=== PATIENT | female | born 1950 | race Caucasian/White ===

== ENCOUNTER 2016-11-21 03:04 | Inpatient (IN) | payer MEDICARE, OTHER ==
[~2016-11-21] VITALS: Ht 154.9 cm; Wt 81.2 kg
[~2016-11-21 03:04] MED LIST: AMLO5TAB2 PO; ASPI-991 PO; DOCU-270 PO; DRON400T2 PO; FAMO20TA8 PO; FOLI1TAB16 PO; GABA-532 PO; HYDR12.55 PO; ISOS30TA47 PO; LEVO500T15 PO; LOSA50TA21 PO; OMEP20CA10 PO; PYRI50TA74 PO; SIMV20TA6 PO; SULI150T PO
--- NOTE | 2016-11-21 03:19 | NUR ---
66 YO FEMALE BB FAMILY; LEFT CHEST PAIN "TIGHTNESS" LIKE, 5/10, STARTING AT 0100 TOOK SL NITRO X 2 AT 0100 WEB APPLICATIONS ADMINISTRATOR WITH LITTLE RELIEF. PT AMBULATED TO ER BED, SKIN WARM AND DRY, RR EVEN AND UNLABORED. PT GOWNED,PLACED ON WAREHOUSE SHIPPING ASSOCIATE. AWAITING ORDERS FROM PROVIDER
[2016-11-21] MEDS ORDERED: NITROGLYCERIN 0.4 MG/TAB BOTTLE SL ONE (03:30)
[2016-11-21] MEDS ORDERED: HYDROMORPHONE INJ 2 MG/ML DISP.SYRIN IV ONE (03:30)
[2016-11-21] MEDS ORDERED: ONDANSETRON HCL/PF 4 MG/2 ML VIAL IVP ONE (03:30)
[2016-11-21] MEDS ORDERED: NITROGLYCERIN PACKET 1 GM PACKET TD ONE (03:30)
[2016-11-21] MEDS ORDERED: ASPIRIN 81 MG TAB.CHEW PO ONE (03:30)
[2016-11-21] MEDS ORDERED: HYDROMORPHONE INJ 2 MG/ML DISP.SYRIN ONE (03:35)
--- NOTE | 2016-11-21 03:35 | NUR ---
18G RIGHT AC IV STARTED, BLOOD SAMPLE OBTAINED AND SENT TO LAB.
[2016-11-21 03:36] LABS: BASOPHILS % (AUTO) 0.3 % (0.0-2.0); EOSINOPHILS # (AUTO) 0.1 /CMM (0.0-0.7); EOSINOPHILS % (AUTO) 2.5 % (0.0-6.0); HEMATOCRIT 41 % (33-45); HEMOGLOBIN 13.4 g/dL (11.5-14.8); LYMPHOCYTES # (AUTO) 2.6 /CMM (0.8-4.8); LYMPHOCYTES % (AUTO) 45.3 % (20.0-44.0); MEAN CORPUSCULAR HEMOGLOBIN 31 PG (26.0-33.0); MEAN CORPUSCULAR HGB CONC 33 g/dl (31.0-36.0); MEAN CORPUSCULAR VOLUME 94 fL (82-100); MONOCYTES # (AUTO) 0.4 /CMM (0.1-1.30); NEUTROPHILS # (AUTO) 2.6 /CMM (1.8-8.9); NEUTROPHILS % (AUTO) 44.9 % (43.0-81.0); PLATELET COUNT (AUTO) 203 /CMM (150-450); RDW COEFFICIENT OF VARIATION 13.1 (11.5-15.0); RED BLOOD CELL COUNT(AUTO) 4.37 MIL/uL (4.0-5.2); WHITE BLOOD COUNT (AUTO) 5.7 K/uL (4.3-11.0)
[2016-11-21] MEDS ORDERED: NITROGLYCERIN PACKET 1 GM PACKET ONE (03:36)
[2016-11-21] MEDS ORDERED: NITROGLYCERIN 0.4 MG/TAB BOTTLE ONE (03:36)
[2016-11-21] MEDS ORDERED: ASPIRIN 81 MG TAB.CHEW ONE (03:36)
[2016-11-21] MEDS ORDERED: ONDANSETRON HCL/PF 4 MG/2 ML VIAL ONE (03:36)
[2016-11-21] MEDS ORDERED: FURO40TA5 PO (03:41)
[2016-11-21] MEDS ORDERED: CLOP75TA2 PO (03:41)
[2016-11-21] MEDS ORDERED: RIVA10TA PO (03:41)
[2016-11-21] MEDS ORDERED: PANT40TA4 PO (03:41)
[2016-11-21] MEDS ORDERED: ATOR20TA PO (03:41)
[2016-11-21] MEDS ORDERED: METO25TA6 PO (03:41)
[2016-11-21] MEDS ORDERED: ERGO400T7 PO (03:41)
[2016-11-21 03:53] LABS: D-DIMER 0.27 mg/L(FEU (0.17-0.50); INR 0.99 (0.87-1.13); PROTHROMBIN TIME 10.6 SECS (9.5-12.7)
[2016-11-21 04:15] LABS: CARBON DIOXIDE 29 mmol/L (21-32); CHLORIDE 106 mmol/L (98-107); CREATININE 0.9 mg/dL (0.6-1.3); GFR 62 mL/min (>60); GLUCOSE 95 mg/dL (74-106); POTASSIUM 3.8 mmol/L (3.5-5.1); SODIUM SERUM 142 mmol/L (136-145); UREA NITROGEN, BLOOD 17 mg/dL (7-18)
[2016-11-21 04:22] LABS: TROPONIN I < 0.017 ng/mL (0.00-0.056)
[2016-11-21 04:27] LABS: ALANINE AMINOTRANSFERASE 18 U/L (12-78); ALBUMIN 3.9 g/dL (3.4-5.0); ALKALINE PHOSPHATASE 120 U/L (46-116); ASPARTATE AMINOTRANSFERASE 16 U/L (15-37); B-TYPE NATRIURETIC PEPTIDE 441 PG/ML (0-125); BILIRUBIN,DIRECT 0.1 mg/dL (0.0-0.2); BILIRUBIN,TOTAL 0.5 mg/dL (0.2-1.0); TOTAL PROTEIN, SERUM 7.3 g/dL (6.4-8.2)
[2016-11-21] MEDS ORDERED: HYDROCODONE/APAP 5/325MG 1 EACH TABLET PO PRN (05:00)
[2016-11-21] MEDS ORDERED: ERGOCALCIFEROL (VITAMIN D 2) 50,000 UNIT CAPSULE PO SCH ×2 (05:00→07:35)
[2016-11-21] MEDS ORDERED: ACETAMINOPHEN 325 MG TABLET PO PRN (05:00)
[2016-11-21] MEDS ORDERED: ENOXAPARIN SODIUM 40 MG/0.4 ML DISP.SYRIN SQ SCH (05:00)
[2016-11-21] MEDS ORDERED: ZOLPIDEM TARTRATE 5 MG TABLET PO PRN (05:00)
[2016-11-21] MEDS ORDERED: MORPHINE SULFATE INJ 2 MG/ML DISP.SYRIN IV PRN (05:00)
[2016-11-21] MEDS ORDERED: MAGNESIUM HYDROXIDE 30 ML UDC PO PRN (05:00)
[2016-11-21] MEDS ORDERED: Z GUARD REMEDY 2 OZ OINT TP PRN (05:00)
[2016-11-21] MEDS ORDERED: ONDANSETRON HCL/PF 4 MG/2 ML VIAL IVP PRN (05:00)
[2016-11-21] MEDS ORDERED: ENOXAPARIN SODIUM 40 MG/0.4 ML DISP.SYRIN SQ ONE ×2 (05:00→05:43)
[2016-11-21] MEDS ORDERED: MAG HYDROX/AL HYDROX/SIMETH 30 ML UDC PO PRN (05:00)
--- NOTE | 2016-11-21 05:04 | NUR ---
TRANSPOTED PT TO TELE BED WITHOUT INCIDENT
--- NOTE | 2016-11-21 05:04 | NUR ---
REPORT GIVEN TO STOCKROOM INVENTORY CLERK FOR GALO
--- NOTE | 2016-11-21 05:20 | NUR ---
RN NOTES: ADMITTED FROM ER, ACCOMPANIED BY 1 RN, ON PRESSURE DISPATCHER, CAME IN WITH C/O CHEST PAIN SINCE 1AM, SHE RECEIVED 2 DOSE OF NITROGLYCERINE FROM HOME, NOT RELIEVED, FROM ER SHE RECEIVED DILAUDID,NITRO TAB, NITRO PATCH AND ZOFRAN, CANNULA ON RAC G#18,ALERT AND ORRIENTED X4,FARSI SPEAKING ONLY,ON O2 AT 2L/MIN VIA NC [id number]%,STIL WITH MILD CHEST PAIN PER PATIENT DAUGHTER SHE VERBALISED SHE FELT BETTER NOW AND RELIEVED, BODY ASSESSMENT DONE, NOTED MULTIPLE SKIN DISCOLORATION ON THE LLE,SHIRLEY,LEFT HIP AND REDNESS ON THE SACROCOCCYX AREA,INITIAL SKIN TREATMENT INITIATED;ORIENTED TO UNIT AND STAFF, FALL, SAFETY AND ASPIRATION PRECAUTION OBSERVE, ALARM ON AT ALL TIME, CALL LIGHT WITHIN REACH.
[2016-11-21 05:30] VITALS: BP 126/76
[2016-11-21] MEDS ORDERED: NITROGLYCERIN 0.4 MG/TAB BOTTLE SL PRN (05:30)
--- NOTE | 2016-11-21 05:59 | NUR ---
RN NOTES: DRISDOL NOT GIVEN, PER SCREENER OPERATOR GIVE AT 9AM.
--- NOTE | 2016-11-21 06:45 | NUR ---
RN NOTES: LOVENOX FIRST DOSE GIVEN, PATIENT ASSISTED TO BATHROOM,VERBALIZE SHE IS OK, LESS PAIN,KEPT ON CLOSE WATCH, ENDORSE TO MORNING SHIFT FOR CONTINUITY OF CARE.
--- NOTE | 2016-11-21 07:00 | NUR ---
TELE/RN AM NOTES RECEIVED PATIENT IN BED, AWAKE, ALERT, WITHOUT SOB, NO DISTRESS C/O MILD CHEST TIGHTNESS, 2/10, BREATHING EVEN UNLABORED, ASSISTED TO THE BATHROOM. REMAINS CONNECTED TO THE TELE MONITOR, HR-86 AFIB. NO DISTRESS NOTED, ON RA TOLERATING WELL. IV LINE RAC INTACT, PATENT. NEEDS MET, BED IN LOW POSITION, 2SR UP FOR SAFETY. WITH CALL LIGHT WITHIN EASY REACH. WILL CONTINUE TO MONITOR ACCORDINGLY.
[2016-11-21 08:00] VITALS: BP 125/83
[2016-11-21] MEDS: PANTOPRAZOLE 40 MG TABLET.DR PO SCH ×2 (08:30→09:07)
[2016-11-21 08:40] LABS: PHOSPHORUS 3.9 mg/dL (2.5-4.9)
[2016-11-21] MEDS ORDERED: METOPROLOL TARTRATE 25 MG TABLET PO SCH (09:00)
[2016-11-21] MEDS ORDERED: PANTOPRAZOLE 40 MG TABLET.DR PO SCH (09:00)
[2016-11-21] MEDS: METOPROLOL TARTRATE 25 MG TABLET PO SCH ×2 (09:08→16:52)
[2016-11-21] MEDS: FUROSEMIDE 40 MG TABLET PO SCH (09:08)
[2016-11-21] MEDS: ISOSORBIDE DINITRATE (20MG) 20 MG TABLET PO SCH ×2 (09:09→16:52)
[2016-11-21] MEDS: CLOPIDOGREL BISULFATE 75 MG TABLET PO SCH (09:09)
[2016-11-21] MEDS: FOLIC ACID 1 MG TABLET PO SCH (09:09)
--- NOTE | 2016-11-21 09:10 | NUR ---
TELE/RN NOTES DR. MASTERSON VISITED/EXAMINED PATIENT, CONTINUE HOSPITALIZATION, ORDERED D/C LOVENOX. NOTED CARRIED OUT Addendum: 11/21/16 at 0918 by DOUG FONSECA RN VITAMIN D2 50,000 NOT ADMINISTERED, WASTED, D/T PATIENT RECEIVED LAST TUESDAY, NOT DUE AT THIS TIME. NEXT SCHEDULED DOSE IS 11/24/16
[2016-11-21 12:00] VITALS: BP 114/82
[2016-11-21 16:00] VITALS: BP_SYST 112; BP_DIAS 64; BP_DIAS 74
--- NOTE | 2016-11-21 19:45 | NUR ---
TELE/RN CLOSING NOTES PATIENT IS IN THE BED, HOB ELEVATED HIGH FOWLERS, NO CHEST PAIN, C/O MILD CHEST TIGHTNESS, DAUGHTER AT THE BEDSIDE, NO DISCOMFORT, NO DISTRESS. OXYGEN IN PLACE VIA N/C 2L/M, TOLERATING WELL. IV LINE INTACT RENETTA. TELE MONITOR ATTACHED HR 90, SINUS RHYTHM. KEPT CLEAN DRY NEEDS ANTICIPATED IN TIMELY MANNER, BED IN LOW POSITION, WITH CALL LIGHT WITHIN EASY REACH.
[2016-11-21 20:00] VITALS: BP 97/67
--- NOTE | 2016-11-21 20:15 | NUR ---
RN OPEN NOTES RECEIVED PATIENT AWAKE IN BED WITH DAUGHTER AT BEDSIDE. A/O X4. NO SIGNS OF DISTRESS OR DISCOMFORT. BREATHING EVEN AND UNLABORED. ON 2LPM O2 VIA NC. DENIES ANY CHEST PAIN AT THIS TIME. STATES LEFT SHOULDER AND LEFT CHEST AREA FEELS TIGHT OR SORE. ON TELE MONITORING WITH AFIB HR 83 NOTED. IV ACCESS IN RAC PATENT AND INTACT, NO SIGNS OF REDNESS OR INFILTRATION. BED IN LOW LOCKED POSITION WITH SIDE RAILS X2. CALL LIGHT WITHIN REACH. WILL CONTINUE TO MONITOR.
[2016-11-21] MEDS ORDERED: ATORVASTATIN 10 MG TABLET PO SCH (22:00)
[2016-11-22] VITALS: BP 120/76
[2016-11-22 04:00] VITALS: BP 154/98
[2016-11-22 06:01] LABS: BASOPHILS % (AUTO) 0.5 % (0.0-2.0); EOSINOPHILS # (AUTO) 0.1 /CMM (0.0-0.7); EOSINOPHILS % (AUTO) 2.4 % (0.0-6.0); HEMATOCRIT 41 % (33-45); HEMOGLOBIN 13.6 g/dL (11.5-14.8); LYMPHOCYTES # (AUTO) 2.4 /CMM (0.8-4.8); LYMPHOCYTES % (AUTO) 49.1 % (20.0-44.0); MEAN CORPUSCULAR HEMOGLOBIN 31 PG (26.0-33.0); MEAN CORPUSCULAR HGB CONC 33 g/dl (31.0-36.0); MEAN CORPUSCULAR VOLUME 94 fL (82-100); MONOCYTES # (AUTO) 0.3 /CMM (0.1-1.30); MONOCYTES % (AUTO) 6.7 % (2.0-12.0); NEUTROPHILS % (AUTO) 41.3 % (43.0-81.0); PLATELET COUNT (AUTO) 200 /CMM (150-450); RDW COEFFICIENT OF VARIATION 13.3 (11.5-15.0); WHITE BLOOD COUNT (AUTO) 4.9 K/uL (4.3-11.0)
[2016-11-22 06:19] LABS: CALCIUM, SERUM 9.1 mg/dL (8.5-10.1); CREATININE 0.9 mg/dL (0.6-1.3); MAGNESIUM 1.9 mg/dL (1.8-2.4); PHOSPHORUS 3.7 mg/dL (2.5-4.9); POTASSIUM 4.8 mmol/L (3.5-5.1)
--- NOTE | 2016-11-22 06:48 | NUR ---
RN CLOSING NOTES PATIENT AWAKE IN BED. A/O X4. NO SIGNS OF DISTRESS OR DISCOMFORT. BREATHING EVEN AND UNLABORED. ON 2LPM O2 VIA NC. DENIES ANY CHEST PAIN AT THIS TIME. ON TELE MONITORING WITH AFIB HR 72 NOTED. IV ACCESS IN RAC PATENT AND INTACT, NO SIGNS OF REDNESS OR INFILTRATION. BED IN LOW LOCKED POSITION WITH SIDE RAILS X2. CALL LIGHT WITHIN REACH. WILL ENDORSE TO AM SHIFT FOR GALO.
--- NOTE | 2016-11-22 07:30 | NUR ---
CAPACITY PLANNER OPENING NOTES RECEIVED PATIENT IN BED, AWAKE, HEAD OF BED ELEVATED, NO SOB, OR DISTRESS NOTED. PATIENT DENIES CHEST PAIN. PATIENT ON O2 AT 2LPM VIA NC AND TOLERATED WELL. ON TELE MONITOR A-FIB PVC HEART RATE OF 73. NO JVD, PATIENT ALERTED AND ORIENTED TIMES 3. VERBALLY RESPONSIVE IN FARSI. IV INTACT AND PATENT. BED IS LOCKED ON THE LOWEST POSITION, CALL LIGHT WITHIN PATIENT REACH. KEPT PATIENT CLEAN AND COMFORTABLE. WILL CONTINUE TO MONITOR ACCORDINGLY.
[2016-11-22 08:00] VITALS: BP 127/90
[2016-11-22] MEDS: FOLIC ACID 1 MG TABLET PO SCH (08:25)
[2016-11-22] MEDS: CLOPIDOGREL BISULFATE 75 MG TABLET PO SCH (08:26)
[2016-11-22] MEDS: METOPROLOL TARTRATE 25 MG TABLET PO SCH (08:26)
[2016-11-22] MEDS: ISOSORBIDE DINITRATE (20MG) 20 MG TABLET PO SCH (08:29)
[2016-11-22] MEDS: FUROSEMIDE 40 MG TABLET PO SCH (08:29)
[2016-11-22] MEDS: PANTOPRAZOLE 40 MG TABLET.DR PO SCH (08:29)
[2016-11-22] MEDS ORDERED: RIVAROXABAN 10 MG TABLET PO SCH (09:00)
[2016-11-22] MEDS ORDERED: LOSARTAN POTASSIUM 50 MG TABLET PO SCH (09:00)
[2016-11-22] MEDS ORDERED: ASPIRIN EC 81 MG TABLET.DR PO SCH (09:00)
[2016-11-22] MEDS ORDERED: ASPI81TA2 PO (11:34)
[2016-11-22 12:25] VITALS: BP 116/73
--- NOTE | 2016-11-22 14:37 | NUR ---
DOPE AND FABRIC WORKERINJECTOR ASSEMBLER NOTES Discharge instructions given to daughter Wagner and able to understand instructions and signed discharge paper and belongings list. pictures taken and file in the patient chart. pneumonia and flu vaccine not given. pneumonia given 2 years ago, flu vaccine is out of season. patient left via wheelchair accompanied by ALUM PLANT OPERATOR and daughter in stable condition. No SOB or distress noted, no complain of pain nor chest pain. Vitals signs checked and recorded. MD and charge nurse aware.
== END 2016-11-22 14:40 | disposition home or self-care (01) | DRG 392 ==
LOC: ER 03:08 → TELE 04:56
PROVIDERS: ADMIT Nurse Practitioner Acute Care
DX: K21.9 Gastro-esophageal reflux disease without esophagitis (principal); I25.110 Atherosclerotic heart disease of native coronary artery with unstable angina pectoris; D68.59 Other primary thrombophilia; E44.0 Moderate protein-calorie malnutrition; R07.9 Chest pain, unspecified; Z86.73 Personal history of transient ischemic attack (TIA), and cerebral infarction without residual deficits; I48.0 Paroxysmal atrial fibrillation; E66.01 Morbid (severe) obesity due to excess calories; E78.5 Hyperlipidemia, unspecified; Z98.61 Coronary angioplasty status; Z87.442 Personal history of urinary calculi; I73.9 Peripheral vascular disease, unspecified; I49.5 Sick sinus syndrome; I25.2 Old myocardial infarction; I48.2 Chronic atrial fibrillation; E66.8 Other obesity; I50.9 Heart failure, unspecified; I11.0 Hypertensive heart disease with heart failure; Z98.84 Bariatric surgery status; Z79.01 Long term (current) use of anticoagulants; Z95.0 Presence of cardiac pacemaker; Z68.33 Body mass index [BMI] 33.0-33.9, adult
CPT/HCPCS: 36415; 71010-TC; 80048-TC; 80061-TC; 80076-TC; 83735-TC; 83880; 84100-TC; 84484-TC; 85025-TC; 85378-TC; 85730-TC; 87081-TC; 93307-TC; A4606; J1170; J1650; J2405; Z7610

== ENCOUNTER 2017-11-05 10:49 | Emergency (ER) | payer MEDICARE, OTHER ==
[~2017-11-05] VITALS: Ht 157.5 cm; Wt 68.0 kg
[~2017-11-05 10:49] MED LIST changes: -AMLO5TAB2 PO; +ASPI-1169 PO; -ASPI-991 PO; +ATOR20TA PO; +CLOP75TA15 PO; -DOCU-270 PO; -DRON400T2 PO; +ERGO400T7 PO; -FAMO20TA8 PO; +FURO40TA5 PO; -GABA-532 PO; -HYDR12.55 PO; -ISOS30TA47 PO; +ISOS30TA9 PO; -LEVO500T15 PO; -LOSA50TA21 PO; +METO25TA6 PO; -OMEP20CA10 PO; +PANT40TA4 PO; -PYRI50TA74 PO; +RIVA10TA PO; -SIMV20TA6 PO; -SULI150T PO
--- NOTE | 2017-11-05 10:59 | NUR ---
cough, congestion, and runny nose x 6 days
[2017-11-05] MEDS ORDERED: CEFTRIAXONE 1GM BAG (ER ONLY) 50 ML IV ONE ×2 (12:00→12:05)
[2017-11-05] MEDS ORDERED: IV NS 0.9% 1,000 ML BAG IV ONE (12:00)
[2017-11-05] MEDS ORDERED: AZITHROMYCIN 500 MG in IV D5W 250 ML IV ONE (12:00)
--- NOTE | 2017-11-05 12:00 | NUR ---
LAC #20 IV ACCESS. BLOOD SAMPLE COLLECTED SENT TO LAB
[2017-11-05 12:18] LABS: BASOPHILS % (AUTO) 0.7 % (0.0-2.0); EOSINOPHILS % (AUTO) 2.9 % (0.0-6.0); HEMATOCRIT 40 % (33-45); HEMOGLOBIN 13.4 g/dL (11.5-14.8); LYMPHOCYTES # (AUTO) 1.1 /CMM (0.8-4.8); LYMPHOCYTES % (AUTO) 18.4 % (20.0-44.0); MEAN CORPUSCULAR HGB CONC 33 g/dl (31.0-36.0); MEAN CORPUSCULAR VOLUME 93 fL (82-100); MONOCYTES # (AUTO) 0.5 /CMM (0.1-1.30); NEUTROPHILS # (AUTO) 4.3 /CMM (1.8-8.9); PLATELET COUNT (AUTO) 191 /CMM (150-450); RDW COEFFICIENT OF VARIATION 13.1 (11.5-15.0); RED BLOOD CELL COUNT(AUTO) 4.34 MIL/uL (4.0-5.2); WHITE BLOOD COUNT (AUTO) 6.1 K/uL (4.3-11.0)
[2017-11-05 12:26] LABS: CALCIUM, SERUM 9.3 mg/dL (8.5-10.1); CARBON DIOXIDE 32 mmol/L (21-32); CHLORIDE 100 mmol/L (98-107); GLUCOSE 98 mg/dL (74-106); POTASSIUM 3.9 mmol/L (3.5-5.1); SODIUM SERUM 138 mmol/L (136-145); UREA NITROGEN, BLOOD 19 mg/dL (7-18)
[2017-11-05 12:34] LABS: TROPONIN I < 0.017 ng/mL (0.00-0.056)
[2017-11-05 12:44] LABS: ALANINE AMINOTRANSFERASE 16 U/L (12-78); ALBUMIN 3.5 g/dL (3.4-5.0); ALKALINE PHOSPHATASE 105 U/L (46-116); ASPARTATE AMINOTRANSFERASE 16 U/L (15-37); B-TYPE NATRIURETIC PEPTIDE 1312 PG/ML (0-125); BILIRUBIN,DIRECT 0.3 mg/dL (0.0-0.2); TOTAL PROTEIN, SERUM 7.7 g/dL (6.4-8.2)
[2017-11-05 14:15] VITALS: BP 115/85
--- NOTE | 2017-11-05 14:15 | NUR ---
IV removed. Catheter intact and site benign. Pressure and 4x4 applied to site. No bleeding noted.
--- NOTE | 2017-11-05 14:15 | NUR ---
Patient discharged to home in stable condition. Written and verbal after care instructions given. Patient verbalizes understanding of instruction.
== END 2017-11-05 14:17 | disposition home or self-care (01) ==
LOC: ER 10:51
DX: J18.0 Bronchopneumonia, unspecified organism (principal); I11.0 Hypertensive heart disease with heart failure; I50.9 Heart failure, unspecified; I48.91 Unspecified atrial fibrillation; Z86.73 Personal history of transient ischemic attack (TIA), and cerebral infarction without residual deficits; Z87.442 Personal history of urinary calculi; Z98.84 Bariatric surgery status; Z79.82 Long term (current) use of aspirin
CPT/HCPCS: 36415; 71045; 71250; 80048; 80076; 83880; 84484; 85025; 87040 ×2; 96365; 96375; 99285; A4606; J0456; J0696; J7030; J7060; Z7610

== ENCOUNTER 2017-11-08 10:42 | Emergency (ER) | payer MEDICARE, OTHER ==
[~2017-11-08] VITALS: Ht 152.4 cm; Wt 86.2 kg
[2017-11-08 10:49] VITALS: BP 140/85
== END 2017-11-08 11:31 | disposition home or self-care (01) ==
LOC: ER 10:43
DX: J18.9 Pneumonia, unspecified organism (principal); R05 Cough; I11.0 Hypertensive heart disease with heart failure; I48.91 Unspecified atrial fibrillation; I50.9 Heart failure, unspecified; Z79.82 Long term (current) use of aspirin; Z86.73 Personal history of transient ischemic attack (TIA), and cerebral infarction without residual deficits; Z87.442 Personal history of urinary calculi; Z98.84 Bariatric surgery status
CPT/HCPCS: A4606; Z7610

== ENCOUNTER 2018-07-16 11:16 | Emergency (ER) | payer MEDICARE, MEDICAID ==
[~2018-07-16] VITALS: Ht 157.5 cm; Wt 84.4 kg
--- NOTE | 2018-07-16 11:17 | NUR ---
PT BIB DAUGHTER C/O RIGHT SHOULDER PAIN, NO OBVIOUS DEFORMITY NOTED. ALERT AND ORIENTED X 4, VERBALLY RESPONSIVE AND ABLE TO MAKE NEEDS KNOWN. HOOKED UP ON THE MONITOR, AND PUT HER ON A GOWN. ON ROOM AIR, BREATHING EVENLY, AND UNLABORED. KEPT COMFORTABLE. WILL CONTINUE TO MONITOR ACCORDINGLY.
--- NOTE | 2018-07-16 11:18 | NUR ---
DR. MENDEZ AT BEDSIDE FOR EVAL.
[2018-07-16] MEDS ORDERED: MORPHINE SULFATE INJ 4 MG/ML DISP.SYRIN ONE (11:40)
[2018-07-16] MEDS ORDERED: MORPHINE SULFATE INJ 2 MG/ML DISP.SYRIN IM ONE (12:00)
[2018-07-16] MEDS ORDERED: METHOCARBAMOL (500MG) 500 MG TABLET ONE (12:20)
[2018-07-16] MEDS ORDERED: METHOCARBAMOL (500MG) 500 MG TABLET PO ONE (12:30)
[2018-07-16 13:22] VITALS: BP 125/80
--- NOTE | 2018-07-16 13:23 | NUR ---
Patient discharged to home in stable condition. Written and verbal after care instructions given. Patient verbalizes understanding of instruction.
== END 2018-07-16 13:22 | disposition home or self-care (01) ==
LOC: ER 11:30
DX: M19.011 Primary osteoarthritis, right shoulder (principal); I48.91 Unspecified atrial fibrillation; I11.0 Hypertensive heart disease with heart failure; I50.9 Heart failure, unspecified; E78.00 Pure hypercholesterolemia, unspecified; Z87.442 Personal history of urinary calculi; Z98.84 Bariatric surgery status; Z86.73 Personal history of transient ischemic attack (TIA), and cerebral infarction without residual deficits; Z79.82 Long term (current) use of aspirin
CPT/HCPCS: 73030; 96372; 99283; A4606; J2270; Z7610

== ENCOUNTER 2018-08-06 19:55 | Inpatient (IN) | payer MEDICARE, MEDICAID ==
[~2018-08-06] VITALS: Ht 160 cm; Wt 85.7 kg
--- NOTE | 2018-08-06 20:17 | NUR ---
CALLED IN WR, NO RESPONSE
--- NOTE | 2018-08-06 20:35 | NUR ---
PT BIBFAMILY C/O ALTERED MENTAL STATUS AND GENERALIZED WEAKNESS X9 HOURS. PT RECENTLY HAD STROKE LAST YEAR, NOTED LEFT SIDE WEAKNESS. NOTED TACHYCARDIA, TACHYPNEA, MD AWARE. PT DENIES CHEST PAIN, N/V/D, ABDOMINAL PAIN. PT PLACED IN GOWN AND ON CONTINUOUS CARDIAC MONIOTR, WILL CONTINUE TO MONITOR
--- NOTE | 2018-08-06 20:40 | NUR ---
MD AT BEDSIDE FOR EVALUATION
--- NOTE | 2018-08-06 20:55 | NUR ---
IV INITIATED RIGHT AC 20G. LABS DRAWN FROM SITE. ENVIRONMENTAL DEPARTMENT MANAGER AT BEDSIDE FOR COLLECTION
--- NOTE | 2018-08-06 21:25 | NUR ---
URINE COLLECTED AND SENT TO LAB
[2018-08-06 21:28] LABS: BASOPHILS % (AUTO) 0.2 % (0.0-2.0); EOSINOPHILS % (AUTO) 0.1 % (0.0-6.0); HEMATOCRIT 40 % (33-45); LYMPHOCYTES # (AUTO) 0.5 /CMM (0.8-4.8); LYMPHOCYTES % (AUTO) 10.1 % (20.0-44.0); MEAN CORPUSCULAR HGB CONC 33 g/dl (31.0-36.0); MEAN CORPUSCULAR VOLUME 96 fL (82-100); MONOCYTES # (AUTO) 0.3 /CMM (0.1-1.30); MONOCYTES % (AUTO) 6.6 % (2.0-12.0); NEUTROPHILS # (AUTO) 3.8 /CMM (1.8-8.9); PLATELET COUNT (AUTO) 187 /CMM (150-450); RED BLOOD CELL COUNT(AUTO) 4.15 MIL/uL (4.0-5.2); WHITE BLOOD COUNT (AUTO) 4.6 K/uL (4.3-11.0)
--- NOTE | 2018-08-06 21:38 | NUR ---
BROUGHT BY RADIOLOGY FOR CT
[2018-08-06 21:55] LABS: CALCIUM, SERUM 8.7 mg/dL (8.5-10.1); CARBON DIOXIDE 21 mmol/L (21-32); CHLORIDE 96 mmol/L (98-107); CREATININE 1.8 mg/dL (0.6-1.3); GLUCOSE 182 mg/dL (74-106); POTASSIUM 4.9 mmol/L (3.5-5.1); SODIUM SERUM 131 mmol/L (136-145); UREA NITROGEN, BLOOD 25 mg/dL (7-18)
[2018-08-06 21:58] LABS: ALANINE AMINOTRANSFERASE 157 U/L (12-78); ALBUMIN 3.7 g/dL (3.4-5.0); ALKALINE PHOSPHATASE 155 U/L (46-116); ASPARTATE AMINOTRANSFERASE 283 U/L (15-37); BILIRUBIN,DIRECT 0.3 mg/dL (0.0-0.2); BILIRUBIN,TOTAL 0.9 mg/dL (0.2-1.0); TOTAL PROTEIN, SERUM 7.7 g/dL (6.4-8.2)
--- NOTE | 2018-08-06 22:03 | NUR ---
Called nursing ice house supervisor and requested a AMNA bed for this pt.
--- NOTE | 2018-08-06 22:12 | NUR ---
Pt is assigned to [facility] rm#: [id number], DX: sepsis, and accepting MD: Dr. Mckee
[2018-08-06] MEDS ORDERED: VANCOMYCIN 1 GM VIAL ONE (22:18)
[2018-08-06] MEDS ORDERED: IV NS 0.9% 1,000 ML BAG IV ONE (22:30)
[2018-08-06] MEDS ORDERED: VANCOMYCIN 1 GM in IV D5W 250 ML IV ONE (22:30)
[2018-08-06] MEDS ORDERED: PIPERACILLIN /TAZOBACTAM 2.25 G in IV D5W 50 ML IV ONE (22:30)
[2018-08-06] MEDS ORDERED: ASPIRIN 300 MG/SUPP.RECT RC STA (22:43)
[2018-08-06 22:49] LABS: APPEARANCE,URINE Cloudy (CLEAR); BILIRUBIN,URINE SMALL (NEGATIVE); BLOOD, URINE Trace-lysed Ery/uL (NEGATIVE); COLOR,URINE Brown (YELLOW); KETONES,URINE Trace (NEGATIVE); LEUKOCYTE ESTERASE ,URINE Negative (NEGATIVE); NITRITE, URINE Positive (NEGATIVE); PROTEIN,URINE >=300 mg/dl (NEGATIVE); UGLUCOSE Negative (NEGATIVE)
--- NOTE | 2018-08-06 23:00 | NUR ---
Update: Per Dr Mckee, patient acuity has been upgraded to ICU. Pt is assigned to ICU rm#: [id number].
[2018-08-06 23:20] LABS: BACTERIA,URINE Moderate /HPF (None Seen); SQUAMOUS EPITHELIAL CELL,UR Moderate /HPF (None Seen); URINE AMORPHOUS URATE Moderate /HPF (None Seen)
[2018-08-06] MEDS ORDERED: ASPIRIN 300 MG/SUPP.RECT RC ONE (23:33)
[2018-08-06] MEDS ORDERED: PIPERACILLIN /TAZOBACTAM 3.375 G VIAL IV ONE (23:33)
[2018-08-07] VITALS (47 sets, daily range): BP systolic 96–150; BP diastolic 33–103
--- NOTE | 2018-08-07 | NUR ---
GAVE REPORT TO ED RN FOR GALO
[2018-08-07] MEDS ORDERED: XARELTO (00:09)
[2018-08-07] MEDS ORDERED: CLOP75TA15 PO (00:09)
[2018-08-07] MEDS ORDERED: FOLIC ACID (00:09)
[2018-08-07] MEDS ORDERED: ISOS60TA4 PO (00:09)
[2018-08-07] MEDS ORDERED: ESOMEPRAZOLE (00:09)
[2018-08-07] MEDS ORDERED: METO1TAB38 PO (00:09)
[2018-08-07] MEDS ORDERED: BUMETANIDE (00:09)
--- NOTE | 2018-08-07 00:39 | NUR ---
TRANSFERRED PT PER ACLS PROTOCOL
[2018-08-07] MEDS ORDERED: PIPERACILLIN /TAZOBACTAM 2.25 G VIAL IV ONE ×2 (00:42→04:52)
--- NOTE | 2018-08-07 00:45 | NUR ---
IT CORPORATE RECRUITER - ADMISSION NOTES - PT ADMITTED FROM ER COMPLAINING OF WEAKNESS, POOR PO INTAKE. PT IS AWAKE ALERT FARSI SPEAKING. PT DENIES PAIN, BUT PT IS HAVING SHORTNESS OF BREATH, WILL GIVE BREATHING TREATMENT. PT IS IN AFIB, PT HAS HX OF AFIB HR UP TO 120, BP WNL. PT IS REFUSING COREY CATHETER, SAYS SHE WILL USE DIAPER INSTEAD BECAUSE COREY CATHETER HURTS. PT HAS SOME BRUISES, BUT SKIN IS INTACT. PT HAS R AC 20G IV AND L AC 18G IV. WILL CONTINUE TO MONITOR
[2018-08-07] MEDS ORDERED: ATORVASTATIN 10 MG TABLET PO SCH (01:00)
[2018-08-07] MEDS ORDERED: AMIODARONE 900 MG in IV D5W 482 ML IV PRN (01:30)
[2018-08-07] MEDS ORDERED: LEVALBUTEROL HCL NEB 1.25 MG/0.5 ML VIAL.NEB NEB PRN (01:30)
[2018-08-07] MEDS ORDERED: ACETAMINOPHEN 325 MG TABLET PO PRN (01:30)
[2018-08-07] MEDS ORDERED: ONDANSETRON HCL/PF 4 MG/2 ML VIAL IVP PRN (01:30)
[2018-08-07] MEDS ORDERED: AMIODARONE 150 MG in IV D5W 100 ML IV ONE (01:30)
[2018-08-07] MEDS ORDERED: Z GUARD REMEDY 2 OZ OINT TP PRN (01:30)
[2018-08-07] MEDS ORDERED: AMIODARONE 150 MG/3 ML VIAL IV ONE (01:31)
[2018-08-07 02:27] LABS: ABG BASE EXCESS -7.1 mmol/L; ABG PCO2 30.8 mmHg (35.0-45.0); ABG PH 7.363 (7.350-7.450); ABG PO2 112.3 mmHg (75.0-100.0); AaDO2 79.8 mmHg; COHb 0.2 % (0.5-1.5); MetHb 0.3 % (0.0-1.5); O2Hb 96.5 % (94.0-97.0); SITE, ABG Right Radial; VENT MODE, BG NASAL CANNULA
[2018-08-07 05:12] LABS: BASOPHILS % (AUTO) 0.1 % (0.0-2.0); HEMATOCRIT 38 % (33-45); HEMOGLOBIN 12.4 g/dL (11.5-14.8); LYMPHOCYTES # (AUTO) 0.7 /CMM (0.8-4.8); LYMPHOCYTES % (AUTO) 19.7 % (20.0-44.0); MEAN CORPUSCULAR HGB CONC 32 g/dl (31.0-36.0); MEAN CORPUSCULAR VOLUME 95 fL (82-100); MONOCYTES # (AUTO) 0.3 /CMM (0.1-1.30); MONOCYTES % (AUTO) 7.6 % (2.0-12.0); NEUTROPHILS # (AUTO) 2.4 /CMM (1.8-8.9); NEUTROPHILS % (AUTO) 72.6 % (43.0-81.0); PLATELET COUNT (AUTO) 142 /CMM (150-450); RED BLOOD CELL COUNT(AUTO) 4.03 MIL/uL (4.0-5.2); WHITE BLOOD COUNT (AUTO) 3.3 K/uL (4.3-11.0)
[2018-08-07] MEDS: PIPERACILLIN /TAZOBACTAM 2.25 G in IV D5W 50 ML IV SCH ×4 (05:16→23:23)
[2018-08-07 05:38] LABS: ALBUMIN 3.1 g/dL (3.4-5.0); BILIRUBIN,TOTAL 0.8 mg/dL (0.2-1.0); CALCIUM, SERUM 8.1 mg/dL (8.5-10.1); CREATININE 1.6 mg/dL (0.6-1.3); PHOSPHORUS 4.6 mg/dL (2.5-4.9); POTASSIUM 4.6 mmol/L (3.5-5.1); TOTAL PROTEIN, SERUM 6.5 g/dL (6.4-8.2)
[2018-08-07 05:40] LABS: THYROID STIMULATING HORMONE 0.693 uIU/mL (0.358-3.74)
--- NOTE | 2018-08-07 06:20 | NUR ---
PT INSISTED ON GETTING UP TO USE THE COMMODE, PT URINATED DARK MONSE AND CLOUDY URINE, NO BM, PT HAS SOME SOB ON EXERTION, PLACED BACK IN BED ON 2L NC, O2SAT RECOVERED TO 96 %
--- NOTE | 2018-08-07 07:20 | NUR ---
RN NOTES PT RECEIVED IN BED EASILY AROUSABLE DURING CARE, ABLE TO MAKE NEEDS KNOWN, FARSI SPEAKING. PATIENT ACCIDENTALLY PULLED OUT RIGHT AC IV ACCESS AND HAS LEFT AC ACCESS PATENT AND INTACT NO REDNESS OR INFILTRATION NOTED. CONTINUED ON ON AMIODORONE DRIP WILL CONTINUE TO ADMINISTER ORDERED. CALL LIGHT WITHIN EASY REACH WILL CONTINUE TO MONITOR
[2018-08-07] MEDS ORDERED: ALBUTEROL FS 2.5 MG/0.5 ML VIAL.NEB NEB PRN (07:30)
[2018-08-07] MEDS ORDERED: FEE PK DOSING 1 MIN EA MC ONE (08:38)
[2018-08-07] MEDS: PANTOPRAZOLE 40 MG TABLET.DR PO SCH (08:59)
[2018-08-07] MEDS: ASPIRIN 81 MG TAB.CHEW PO SCH (08:59)
[2018-08-07] MEDS: CLOPIDOGREL BISULFATE 75 MG TABLET PO SCH (09:00)
[2018-08-07] MEDS ORDERED: FUROSEMIDE 20 MG/2 ML VIAL IV SCH (09:00)
[2018-08-07] MEDS ORDERED: ISOSORBIDE DINITRATE 60 MG PO SCH (09:00)
[2018-08-07] MEDS: FOLIC ACID 1 MG TABLET PO SCH (09:00)
[2018-08-07] MEDS ORDERED: ASPIRIN EC 325 MG TABLET.DR PO SCH (09:00)
--- NOTE | 2018-08-07 09:00 | NUR ---
RN NOTES RECEIVED PT ON BED, A/OX4, FARSI SPEAKING, RESPIRATION EVEN AND UNLABORED, NO SOB NOTED, ON TELE A.FIB, ON AMIO GTT PER MD ORDER , OUT OF BED TO BSC WITH ASSIST, SR UPX3, CALL LIGHT WITHIN EASY REACH, CONTINUE TO MONITOR .
--- NOTE | 2018-08-07 09:30 | NUR ---
RN NOTES PT IN BED EASILY AROUSABLE DURING CARE, ABLE TO MAKE NEEDS KNOWN, FARSI SPEAKING. PATIENT ACCIDENTALLY PULLED OUT RIGHT AC IV ACCESS AND HAS LEFT AC ACCESS PATENT AND INTACT NO REDNESS OR INFILTRATION NOTED. CONTINUED ON ON AMIODORONE DRIP WILL CONTINUE TO ADMINISTER ORDERED. PT HAVING ULSTRASOUND OF LIVER AT THIS TIME WILL FOLLOW UP WITH MD IF ABLE TO HAVE PO INTAKE, MEDS GIVEN ORDERED CALL LIGHT WITHIN EASY REACH ENDORSED TO RECEIVING RN FOR CONTINUITY OF CARE
[2018-08-07] MEDS: FUROSEMIDE 40 MG/4 ML VIAL IV SCH ×2 (10:56→14:30)
--- NOTE | 2018-08-07 11:00 | NUR ---
RN NOTES PT KEPT NPO AT THIS TIME FOR U/S OF ABDOMEN, OUT OF BED TO BSC WITH ASSIST, VOIDING WELL .
[2018-08-07] MEDS: DIGOXIN INJ 0.5 MG/2 ML AMPUL IV SCH ×3 (11:53→23:16)
[2018-08-07] MEDS: ISOSORBIDE MONONITRATE 20 MG TABLET PO SCH (12:26)
[2018-08-07] MEDS ORDERED: FUROSEMIDE 40 MG/4 ML VIAL IV STA (17:05)
[2018-08-07] MEDS: RIVAROXABAN 10 MG TABLET PO SCH (17:18)
[2018-08-07] MEDS: VANCOMYCIN 1 GM in IV D5W 250 ML IV SCH (21:36)
[2018-08-08] VITALS (25 sets, daily range): BP systolic 71–159; BP diastolic 31–108
[2018-08-08 04:51] LABS: BASOPHILS % (AUTO) 0.5 % (0.0-2.0); EOSINOPHILS % (AUTO) 1.4 % (0.0-6.0); HEMATOCRIT 37 % (33-45); HEMOGLOBIN 11.9 g/dL (11.5-14.8); LYMPHOCYTES # (AUTO) 0.8 /CMM (0.8-4.8); LYMPHOCYTES % (AUTO) 29.4 % (20.0-44.0); MEAN CORPUSCULAR HGB CONC 33 g/dl (31.0-36.0); MEAN CORPUSCULAR VOLUME 94 fL (82-100); MONOCYTES # (AUTO) 0.2 /CMM (0.1-1.30); MONOCYTES % (AUTO) 5.7 % (2.0-12.0); NEUTROPHILS # (AUTO) 1.8 /CMM (1.8-8.9); PLATELET COUNT (AUTO) 139 /CMM (150-450); RED BLOOD CELL COUNT(AUTO) 3.89 MIL/uL (4.0-5.2); WHITE BLOOD COUNT (AUTO) 2.8 K/uL (4.3-11.0)
[2018-08-08 05:02] LABS: ALBUMIN 3.2 g/dL (3.4-5.0); BILIRUBIN,TOTAL 0.8 mg/dL (0.2-1.0); CALCIUM, SERUM 8.2 mg/dL (8.5-10.1); CREATININE 1.6 mg/dL (0.6-1.3); MAGNESIUM 1.9 mg/dL (1.8-2.4); POTASSIUM 3.5 mmol/L (3.5-5.1); TOTAL PROTEIN, SERUM 6.4 g/dL (6.4-8.2)
[2018-08-08] MEDS: PIPERACILLIN /TAZOBACTAM 2.25 G in IV D5W 50 ML IV SCH ×3 (06:34→17:54)
--- NOTE | 2018-08-08 07:30 | NUR ---
FIELD CANE SCALE CLERK - NOTES - PT RECEIVED IN BED EASILY AROUSABLE DURING CARE, ABLE TO MAKE NEEDS KNOWN, FARSI SPEAKING. PATIENT HAS R AC 18G ACCESS PATENT AND INTACT NO REDNESS OR INFILTRATION NOTED. CALL LIGHT WITHIN EASY REACH WILL CONTINUE TO MONITOR
[2018-08-08] MEDS ORDERED: FUROSEMIDE 40 MG/4 ML VIAL IV SCH (08:00)
[2018-08-08] MEDS: PANTOPRAZOLE 40 MG TABLET.DR PO SCH (08:18)
[2018-08-08] MEDS: FOLIC ACID 1 MG TABLET PO SCH (08:18)
[2018-08-08] MEDS: ASPIRIN 81 MG TAB.CHEW PO SCH (08:18)
[2018-08-08] MEDS: CLOPIDOGREL BISULFATE 75 MG TABLET PO SCH (08:18)
[2018-08-08] MEDS: ISOSORBIDE MONONITRATE 20 MG TABLET PO SCH (08:18)
[2018-08-08] MEDS: POTASSIUM CHLORIDE 20 MEQ TAB.PRT.SR PO SCH ×3 (08:18→10:58)
--- NOTE | 2018-08-08 12:00 | NUR ---
PT TRANSFERRED TO ROOM 325 BED 1 FOR TELE MONITORING. NO SOB,VSS. PT WAS UPDATED ON NEED FOR TRANSFER AND HER PROGRESS BY FARSI SPEAKING RN. PT VERBALIZES UNDERSTANDING.
--- NOTE | 2018-08-08 12:15 | NUR ---
burr bench operatorlead coater/Admission Note Received patient by bed from ICU in stable condition, vital signs stable. Patient received currently awake, resting in bed. Patient alert and oriented x 4, able to make needs known. Primarily Farsi speaking. Respirations even and unlabored, saturating on room air. No acute distress noted and no complaints of pain at this time. On personnel monitor, controlled a-fib with ventricular pacing at 76 bpm. Peripheral IV access to the right AC 20 gauge, intact, patent and saline locked. Safety and Fall precautions in place: bed in lowest and locked position, side rails up x 2, bed alarm on, call light within reach. Reviewed safety measures and plan of care with patient and family member, verbalized understanding with help of translation. Will continue to monitor and intervene as needed.
[2018-08-08] MEDS ORDERED: LACTOBACILLUS RHAMNOSUS GG 1 EACH CAP.SPRINK PO SCH (17:00)
[2018-08-08] MEDS: LACTOBACILLUS RHAMNOSUS GG 1 EACH CAP.SPRINK PO SCH (17:54)
[2018-08-08] MEDS: RIVAROXABAN 10 MG TABLET PO SCH (17:54)
--- NOTE | 2018-08-08 19:00 | NUR ---
imaging clerk Closing Note Patient currently awake, resting in bed. Patient alert and oriented x 4, able to make needs known. Primarily Farsi speaking. Respirations even and unlabored, saturating on room air. No acute distress noted and no complaints of pain at this time. On telex operator, controlled a-fib with ventricular pacing at 84 bpm. Peripheral IV access to the right AC 20 gauge, intact, patent and saline locked. All due medications given as ordered. No acute events this shift. Safety and Fall precautions in place: bed in lowest and locked position, side rails up x 2, bed alarm on, call light and personal possessions within reach. Reviewed safety measures and plan of care with patient and family member, verbalized understanding with help of translation. Visitors (family) currently at bedside. Will endorse to welder 2nd shift RN for continuity of care.
--- NOTE | 2018-08-08 19:15 | NUR ---
RN OPENING NOTES RECEIVED PT SITTING UP IN BED, RECEIVING IV ATB ORDERED, ALERT AND ORIENTED X 4, VERBALLY RESPONSIVE, IN NO DISTRESS. PT'S FAMILY AT BEDSIDE, RE-ORIENTED PT ON THE USE OF CALL LIGHT, VERBALIZED UNDERSTANDING. PT AWARE OF SAFETY NEEDS, CALL LIGHT PLACED WITHIN EASY REACH. BED IN LOW POSITION AND LOCKED IN PLACE. WILL CONTINUE TO MONITOR PT.
[2018-08-08] MEDS: VANCOMYCIN 1 GM in IV D5W 250 ML IV SCH (22:12)
[2018-08-08] MEDS: HYDROMORPHONE INJ 2 MG/ML DISP.SYRIN IV PRN (22:12)
[2018-08-09] VITALS: BP 125/86
[2018-08-09] MEDS: PIPERACILLIN /TAZOBACTAM 2.25 G in IV D5W 50 ML IV SCH ×4 (00:08→17:10)
--- NOTE | 2018-08-09 06:50 | NUR ---
INSULATION FOREMAN CLOSING NOTES PT IN BED, ASLEEP BUT EASILY AROUSABLE, NO SOB NOTED, VERBALLY RESPONSIVE AND IN NO ACUTE DISTRESS AT THIS TIME. ALL PATIENT'S NEEDS ATTENDED TO THROUGHOUT THE SHIFT. ALL DUE MEDICATION GIVEN ORDERED. WILL ENDORSE TO AM SHIFT NURSE FOR CONTINUITY OF CARE.
[2018-08-09 06:58] LABS: BASOPHILS % (AUTO) 0.4 % (0.0-2.0); EOSINOPHILS % (AUTO) 1.9 % (0.0-6.0); HEMATOCRIT 35 % (33-45); HEMOGLOBIN 11.5 g/dL (11.5-14.8); LYMPHOCYTES # (AUTO) 0.6 /CMM (0.8-4.8); LYMPHOCYTES % (AUTO) 27.2 % (20.0-44.0); MEAN CORPUSCULAR HGB CONC 33 g/dl (31.0-36.0); MEAN CORPUSCULAR VOLUME 94 fL (82-100); MONOCYTES # (AUTO) 0.2 /CMM (0.1-1.30); NEUTROPHILS # (AUTO) 1.4 /CMM (1.8-8.9); NEUTROPHILS % (AUTO) 62.5 % (43.0-81.0); PLATELET COUNT (AUTO) 135 /CMM (150-450); RED BLOOD CELL COUNT(AUTO) 3.69 MIL/uL (4.0-5.2); WHITE BLOOD COUNT (AUTO) 2.3 K/uL (4.3-11.0)
--- NOTE | 2018-08-09 07:42 | NUR ---
Tele/RN - Assessment Patient in bed awake, A/O X 4, denies pain, no apparent distress seen, stable on room air, EKG done today shows A.Fib. Peripheral IV on the LAC is patent, intact, flushing well. Troponin trending down. Fall precautions maintained. Patient updated on plan of care and in agreement. Will continue with current medical management.
[2018-08-09 07:43] LABS: BILIRUBIN,TOTAL 0.6 mg/dL (0.2-1.0); CALCIUM, SERUM 8.3 mg/dL (8.5-10.1); CREATININE 1.2 mg/dL (0.6-1.3); MAGNESIUM 1.6 mg/dL (1.8-2.4); PHOSPHORUS 2.9 mg/dL (2.5-4.9); POTASSIUM 3.6 mmol/L (3.5-5.1); TOTAL PROTEIN, SERUM 6.2 g/dL (6.4-8.2)
[2018-08-09 08:00] VITALS: BP 126/77
[2018-08-09] MEDS: CLOPIDOGREL BISULFATE 75 MG TABLET PO SCH (08:11)
[2018-08-09] MEDS: ASPIRIN 81 MG TAB.CHEW PO SCH (08:11)
[2018-08-09] MEDS: PANTOPRAZOLE 40 MG TABLET.DR PO SCH (08:11)
[2018-08-09] MEDS: FOLIC ACID 1 MG TABLET PO SCH (08:11)
[2018-08-09] MEDS: ISOSORBIDE MONONITRATE 20 MG TABLET PO SCH (08:12)
[2018-08-09] MEDS: LACTOBACILLUS RHAMNOSUS GG 1 EACH CAP.SPRINK PO SCH ×2 (08:12→16:54)
[2018-08-09] MEDS: Magnesium 1GM/D5W 100ML PREMIX 100 ML IV SCH ×4 (08:25→12:33)
[2018-08-09] MEDS: HYDROMORPHONE INJ 2 MG/ML DISP.SYRIN IV PRN (08:29)
[2018-08-09 16:00] VITALS: BP 134/91
[2018-08-09] MEDS: RIVAROXABAN 10 MG TABLET PO SCH (17:04)
--- NOTE | 2018-08-09 17:31 | NUR ---
MS/RN - Closing notes Patient alert and oriented throughout the shift, remain afebrile, denies pain, stable on room air, replete magnesium today with total of 4 gms. All needs attended and met. Fall precautions maintained. Will continue with current plan of care.
--- NOTE | 2018-08-09 19:20 | NUR ---
RN OPENING NOTES PT AWAKE AND RESTING IN BED. FAMILY AT BED SIDE. NO COMPLAINTS OF PAIN, SOB OR DISTRESS AT THIS TIME. PT HAS A RIGHT AC #20 IV INTACT AND PATENT. SAFETY PRECAUTIONS IN PLACE, BED IN LOWEST LOCKED POSITION, X2 SIDE RAILS UP AND CALL LIGHT WITHIN REACH. WILL CONTINUE TO MONITOR.
[2018-08-09 20:00] VITALS: BP 135/85
[2018-08-09] MEDS ORDERED: VANCOMYCIN 1 GM VIAL ONE (22:22)
[2018-08-09] MEDS: VANCOMYCIN 1 GM in IV D5W 250 ML IV SCH (22:28)
[2018-08-10] MEDS: PIPERACILLIN /TAZOBACTAM 2.25 G in IV D5W 50 ML IV SCH ×3 (00:08→11:05)
[2018-08-10] MEDS: HYDROMORPHONE INJ 2 MG/ML DISP.SYRIN IV PRN (01:28)
--- NOTE | 2018-08-10 06:47 | NUR ---
RN CLOSING NOTES PT AWAKE AND RESTING IN BED. NO COMPLAINTS OF PAIN, SOB OR DISTRESS AT THIS TIME. ALL PATIENT NEEDS MET OVERNIGHT. PT HAS A RIGHT AC #20 IV INTACT AND PATENT. SAFETY PRECAUTIONS IN PLACE, BED IN LOWEST LOCKED POSITION, X2 SIDE RAILS UP AND CALL LIGHT WITHIN REACH. WILL ENDORSE TO DAY SHIFT NURSE FOR CONTINUITY OF CARE.
--- NOTE | 2018-08-10 07:25 | NUR ---
MS/RN - Assessment Patient in bed awake, A/O X 4, denies pain, no apparent distress seen, stable on room air. Peripheral IV on the LAC is patent, intact, flushing well. Lab results pending for today, magnesium repleted yesterday total of 4gms. Fall precautions maintained. Patient updated on plan of care and in agreement. Will continue with current medical management.
[2018-08-10 08:00] VITALS: BP 131/88
[2018-08-10 08:11] LABS: CALCIUM, SERUM 8.8 mg/dL (8.5-10.1); MAGNESIUM 2.2 mg/dL (1.8-2.4); PHOSPHORUS 2.8 mg/dL (2.5-4.9); POTASSIUM 3.7 mmol/L (3.5-5.1)
[2018-08-10] MEDS: FOLIC ACID 1 MG TABLET PO SCH (08:23)
[2018-08-10] MEDS: PANTOPRAZOLE 40 MG TABLET.DR PO SCH (08:23)
[2018-08-10] MEDS: ASPIRIN 81 MG TAB.CHEW PO SCH (08:23)
[2018-08-10] MEDS: CLOPIDOGREL BISULFATE 75 MG TABLET PO SCH (08:23)
[2018-08-10] MEDS: ISOSORBIDE MONONITRATE 20 MG TABLET PO SCH (08:23)
[2018-08-10] MEDS: LACTOBACILLUS RHAMNOSUS GG 1 EACH CAP.SPRINK PO SCH ×2 (08:23→16:27)
[2018-08-10] MEDS: POTASSIUM CHLORIDE 20 MEQ TAB.PRT.SR PO SCH ×3 (09:48→12:13)
[2018-08-10] MEDS: FUROSEMIDE 40 MG/4 ML VIAL IV SCH ×2 (09:48→13:08)
[2018-08-10] MEDS ORDERED: ACETAMINOPHEN 325 MG TABLET PO PRN (10:00)
[2018-08-10] MEDS: RIVAROXABAN 10 MG TABLET PO SCH (17:16)
--- NOTE | 2018-08-10 17:26 | NUR ---
MS/RN - Closing notes Patient alert and oriented throughout the shift, remain afebrile, denies pain, on room air, no apparent distress seen. Patient was given Lasix 40 mg IVP x 2 doses, diuresing well. Fall precautions maintained. Possible discharge home tomorrow if continues to be stable. Will continue with current plan of care.
--- NOTE | 2018-08-10 19:10 | NUR ---
MS/RN NOTES RECEIVED PT. LYING IN BED. PT. IS AWAKE, ALERT AND ORIENTED X3. BREATHING EVEN AND UNLABORED ON 2LPM O2 VIA NC. NO SOB, RESPIRATORY DISTRESS OR COMPLAINTS OF PAIN NOTED AT THIS TIME. PT. WITH RIGHT AC 20 GAUGE IV SALINE LOCK PRESENT, PATENT AND INTACT. BED LOCKED AND IN LOWEST POSITION, SIDE RAILS UP X3, BED ALARM ON, CALL LIGHT WITHIN REACH, WILL CONTINUE TO MONITOR.
[2018-08-10 20:00] VITALS: BP 139/65
[2018-08-11] MEDS: HYDROMORPHONE INJ 2 MG/ML DISP.SYRIN IV PRN (02:56)
--- NOTE | 2018-08-11 06:20 | NUR ---
MS/RN NOTES PT. IS LYING IN BED RESTING. BREATHING EVEN AND UNLABORED ON 2LPM O2 VIA NC. NO SOB, RESPIRATORY DISTRESS OR COMPLAINTS OF PAIN NOTED AT THIS TIME. PT. WITH RIGHT AC 20 GAUGE IV SALINE LOCK PRESENT, PATENT AND INTACT. ALL PT. NEEDS MET. PT. OFFLOADED, ASSISTED AND ENCOURAGED TO TURN AND REPOSITIONED Q2H AND NEEDED. BED LOCKED AND IN LOWEST POSITION, SIDE RAILS UP X3, BED ALARM ON, CALL LIGHT WITHIN REACH, WILL ENDORSE TO DAYSHIFT NURSE FOR CONTINUITY OF CARE.
--- NOTE | 2018-08-11 07:30 | NUR ---
m/s integrated circuit ic layout designer: initial assessment received pt in bed awake, a/ox4; farsi speaking only. no c/o pain or any discomfort. for d'c planning home today. awaiting for md evaluation. will continue to monitor. call light within reach.
[2018-08-11 07:42] LABS: BASOPHILS % (AUTO) 0.3 % (0.0-2.0); EOSINOPHILS % (AUTO) 3.2 % (0.0-6.0); HEMATOCRIT 37 % (33-45); HEMOGLOBIN 12.2 g/dL (11.5-14.8); LYMPHOCYTES % (AUTO) 60.7 % (20.0-44.0); MEAN CORPUSCULAR HGB CONC 33 g/dl (31.0-36.0); MEAN CORPUSCULAR VOLUME 94 fL (82-100); MONOCYTES # (AUTO) 0.4 /CMM (0.1-1.30); MONOCYTES % (AUTO) 11.3 % (2.0-12.0); NEUTROPHILS # (AUTO) 0.8 /CMM (1.8-8.9); NEUTROPHILS % (AUTO) 24.5 % (43.0-81.0); PLATELET COUNT (AUTO) 147 /CMM (150-450); RED BLOOD CELL COUNT(AUTO) 3.98 MIL/uL (4.0-5.2); WHITE BLOOD COUNT (AUTO) 3.3 K/uL (4.3-11.0)
[2018-08-11 07:51] LABS: BILIRUBIN,TOTAL 0.4 mg/dL (0.2-1.0); CALCIUM, SERUM 8.8 mg/dL (8.5-10.1); CREATININE 0.8 mg/dL (0.6-1.3); POTASSIUM 4.4 mmol/L (3.5-5.1); TOTAL PROTEIN, SERUM 6.4 g/dL (6.4-8.2)
[2018-08-11 08:00] VITALS: BP 156/80
--- NOTE | 2018-08-11 09:00 | NUR ---
m/s inspector machine cut glass: cardio f/u seen and examined by dr. velasquez with orders. orders acknowledged.
[2018-08-11] MEDS: FUROSEMIDE 40 MG TABLET PO SCH (09:11)
[2018-08-11] MEDS: CLOPIDOGREL BISULFATE 75 MG TABLET PO SCH (09:11)
[2018-08-11] MEDS: ISOSORBIDE MONONITRATE 20 MG TABLET PO SCH (09:11)
[2018-08-11] MEDS: FOLIC ACID 1 MG TABLET PO SCH (09:11)
[2018-08-11] MEDS: LACTOBACILLUS RHAMNOSUS GG 1 EACH CAP.SPRINK PO SCH ×2 (09:12→16:57)
[2018-08-11] MEDS: PANTOPRAZOLE 40 MG TABLET.DR PO SCH (09:12)
[2018-08-11] MEDS: ASPIRIN 81 MG TAB.CHEW PO SCH (09:12)
--- NOTE | 2018-08-11 10:00 | NUR ---
m/s jewelry setter: notes up and about in room. no c/o sob or any discomfort. instructed to call for assistance. will monitor.
[2018-08-11] MEDS ORDERED: ALBU18HF2 INH (13:57)
[2018-08-11] MEDS ORDERED: LEVO500T75 PO (13:57)
--- NOTE | 2018-08-11 14:30 | NUR ---
m/s dryer and washer mechanic: md visit sindhu (acnp) at bedside. pt speaks farsi only and asked to call her daughter. vivian (daughter) on the phone and sindhu spoke to her and discussed d'c planning today and instructions given to daughter over the phone and verbalized understanding. vivian will call her sister to pick her up, but no time given at this time. pt aware and will wait for daughter to pick her up.
[2018-08-11 16:00] VITALS: BP 124/88
--- NOTE | 2018-08-11 16:50 | NUR ---
m/s program paraprofessional: notes daughter called and unable to pick pt up today. case management made aware. daughter will appeal to medicare. [place] and sindhu (acnp) made aware. daughter will pickle solution maker pt tomorrow, pt aware.
[2018-08-11] MEDS: RIVAROXABAN 10 MG TABLET PO SCH (16:59)
--- NOTE | 2018-08-11 18:30 | NUR ---
m/s survey field technician: notes in bed awake, still with occ coughing. no c/o sob. needs attended. instructed to call for assistance. will continue to monitor.
--- NOTE | 2018-08-11 19:20 | NUR ---
MS/RN NOTES RECEIVED PT. LYING BED. PT. IS AWAKE, ALERT AND ORIENTED X3. BREATHING EVEN AND UNLABORED ON 2LPM O2 VIA NC. NO SOB, RESPIRATORY DISTRESS OR COMPLAINTS OF PAIN NOTED AT THIS TIME. PER DAYSHIFT NURSE PT. WILL BE DC TO HOME TOMORROW. PT. WITH RIGHT AC 20 GAUGE IV SALINE LOCK PRESENT, PATENT AND INTACT. BED LOCKED AND IN LOWEST POSITION, SIDE RAILS UP X3, BED ALARM ON, CALL LIGHT WITHIN REACH, WILL CONTINUE TO MONITOR.
[2018-08-11 20:00] VITALS: BP 124/71
[2018-08-12] MEDS: HYDROMORPHONE INJ 2 MG/ML DISP.SYRIN IV PRN (03:35)
--- NOTE | 2018-08-12 06:30 | NUR ---
MS/RN NOTES PT. IS LYING BED RESTING. BREATHING EVEN AND UNLABORED ON 2LPM O2 VIA NC. NO SOB, RESPIRATORY DISTRESS OR COMPLAINTS OF PAIN NOTED AT THIS TIME. PT. WITH RIGHT AC 20 GAUGE IV SALINE LOCK PRESENT, PATENT AND INTACT. BED LOCKED AND IN LOWEST POSITION, SIDE RAILS UP X3, BED ALARM ON, CALL LIGHT WITHIN REACH, WILL ENDORSE TO DAYSHIFT NURSE FOR CONTINUITY OF CARE.
[2018-08-12 08:00] VITALS: BP 109/76
--- NOTE | 2018-08-12 08:00 | NUR ---
MS RN NOTES PATIENT IN BED RESTING NO SOB OR ACUTE DISTRESS NOTED , ALERT ORIENTED X3 DENIES ANY PAIN OR DISCOMFORT. PERIPHERAL IV INTACT PATENT. BED IN LOW LOCKED POSITION, CALL LIGHT WITHIN REACH WILL CONTINUE TO MONITOR.
[2018-08-12] MEDS: LACTOBACILLUS RHAMNOSUS GG 1 EACH CAP.SPRINK PO SCH (08:29)
[2018-08-12] MEDS: FOLIC ACID 1 MG TABLET PO SCH (08:29)
[2018-08-12] MEDS: FUROSEMIDE 40 MG TABLET PO SCH (08:29)
[2018-08-12] MEDS: ISOSORBIDE MONONITRATE 20 MG TABLET PO SCH (08:29)
[2018-08-12] MEDS: PANTOPRAZOLE 40 MG TABLET.DR PO SCH (08:29)
[2018-08-12] MEDS: ASPIRIN 81 MG TAB.CHEW PO SCH (08:29)
[2018-08-12] MEDS: CLOPIDOGREL BISULFATE 75 MG TABLET PO SCH (08:29)
--- NOTE | 2018-08-12 13:30 | NUR ---
MS RN NOTES PATIENT DISCHARGE HOME WITH DAUGHTER. IN STABLE CONDITION. DAUGHTER REPORTS HER MOTHER WAS NOT READY TO BE DISCHARGE YESTERDAY BUT STATES SHE IS FEELING MUCH BETTER TODAY AND WOULD LIKE TO BE DISCHARGED. MD AWARE OF ALL ABNORMAL LABS. DISCHARGE TEACHING PROVIDED VERBALIZED UNDERSTANDING. DISCHARGE PROTOCOL FOLLOWED. ALL BELONGINGS ACCOUNTED FOR. BELONGING LIST SIGNED. PERIPHERAL IV REMOVED WITH MINIMAL BLEEDING. ID BAND REMOVED. PRESCRIPTION PROVED. ESCORTED TO [place].
[2018-08-12 16:45] LABS: CREATININE 1.2 mg/dL (0.6-1.3); POTASSIUM 3.8 mmol/L (3.5-5.1)
[2018-08-23] MEDS ORDERED: LEVO750T21 PO (13:41)
== END 2018-08-12 13:30 | disposition home or self-care (01) | DRG 871 ==
LOC: ER 19:56 → TELE-TD 22:17 → ICU 23:02 → MED 08-08 11:50 → TELE 08-08 20:09 → MED 08-09 09:42
PROVIDERS: ADMIT Internal Medicine; ATTEND Registered Nurse
DX: A41.9 Sepsis, unspecified organism (principal); J18.9 Pneumonia, unspecified organism; G92 Toxic encephalopathy; I21.A1 Myocardial infarction type 2; I50.31 Acute diastolic (congestive) heart failure; N17.0 Acute kidney failure with tubular necrosis; N39.0 Urinary tract infection, site not specified; D61.818 Other pancytopenia; E87.2 Acidosis; E11.9 Type 2 diabetes mellitus without complications; E78.5 Hyperlipidemia, unspecified; E83.42 Hypomagnesemia; I11.0 Hypertensive heart disease with heart failure; I25.10 Atherosclerotic heart disease of native coronary artery without angina pectoris; I48.2 Chronic atrial fibrillation; Z79.01 Long term (current) use of anticoagulants; Z98.84 Bariatric surgery status; Z90.49 Acquired absence of other specified parts of digestive tract; Z87.442 Personal history of urinary calculi; Z95.0 Presence of cardiac pacemaker; R74.0 Nonspecific elevation of levels of transaminase and lactic acid dehydrogenase [LDH]; F03.90 Unspecified dementia, unspecified severity, without behavioral disturbance, psychotic disturbance, mood disturbance, and anxiety; E66.9 Obesity, unspecified; Z68.33 Body mass index [BMI] 33.0-33.9, adult; I25.2 Old myocardial infarction; Z86.73 Personal history of transient ischemic attack (TIA), and cerebral infarction without residual deficits; G31.9 Degenerative disease of nervous system, unspecified
CPT/HCPCS: 36415; 36600; 70450-TC; 71045-TC; 76705-TC; 80048-TC; 80053-TC; 80061-TC; 80076-TC; 80202-TC; 81000-TC; 82140-TC; 82962-TC; 83540-TC; 83605-TC; 83690-TC; 83735-TC; 83880; 84100-TC; 84443-TC; 84484-TC; 85025-TC; 85730-TC; 87040-TC; 87081-TC; 87086-TC; 93307-TC; 97110-TC; 97116-TC; 97530-TC; A6403; G0378; J0282; J1160; J1170; J1940; J2543; J3370; J3475; J7030; J7050; J7060

== ENCOUNTER 2018-08-16 17:26 | Inpatient (IN) | payer MEDICARE, MEDICAID ==
[~2018-08-16] VITALS: Ht 157.5 cm; Wt 88.9 kg
[~2018-08-16 17:26] MED LIST changes: +ALBU18HF2 INH; +ISOS60TA4 PO; +LEVO500T75 PO
--- NOTE | 2018-08-16 17:44 | NUR ---
BIB SON C/O SOB, WORSE WHEN LAYING ON FLAT ON THE BED. ALERT AND ORIENTED X 4, ON ROOM AIR, BREATHING EVENLY, AND UNLABORED. 02 SAT 98%. CONNECTED TO THE MONITOR, AND PULSE OX. KEPT COMFORTABLE. WILL CONTINUE TO MONITOR ACCORDINGLY.
--- NOTE | 2018-08-16 18:07 | NUR ---
DR PARKS AT BEDSIDE FOR EVAL.
[2018-08-16] MEDS ORDERED: methylPREDNISolone SOD SUCC 125 MG/2ML VIAL ONE (18:10)
[2018-08-16 18:13] LABS: BASOPHILS % (AUTO) 0.4 % (0.0-2.0); EOSINOPHILS % (AUTO) 2.2 % (0.0-6.0); HEMATOCRIT 38 % (33-45); HEMOGLOBIN 12.4 g/dL (11.5-14.8); LYMPHOCYTES # (AUTO) 2.1 /CMM (0.8-4.8); LYMPHOCYTES % (AUTO) 41.2 % (20.0-44.0); MEAN CORPUSCULAR HGB CONC 33 g/dl (31.0-36.0); MEAN CORPUSCULAR VOLUME 95 fL (82-100); MONOCYTES # (AUTO) 0.4 /CMM (0.1-1.30); MONOCYTES % (AUTO) 8.7 % (2.0-12.0); NEUTROPHILS # (AUTO) 2.5 /CMM (1.8-8.9); NEUTROPHILS % (AUTO) 47.5 % (43.0-81.0); PLATELET COUNT (AUTO) 295 /CMM (150-450); RED BLOOD CELL COUNT(AUTO) 3.98 MIL/uL (4.0-5.2); WHITE BLOOD COUNT (AUTO) 5.2 K/uL (4.3-11.0)
[2018-08-16 18:17] LABS: CALCIUM, SERUM 8.9 mg/dL (8.5-10.1); CARBON DIOXIDE 29 mmol/L (21-32); CHLORIDE 104 mmol/L (98-107); GLUCOSE 135 mg/dL (74-106); POTASSIUM 4.4 mmol/L (3.5-5.1); SODIUM SERUM 137 mmol/L (136-145); UREA NITROGEN, BLOOD 20 mg/dL (7-18)
[2018-08-16] MEDS ORDERED: IPRATROPIUM NEB FS 0.5 MG/2.5 ML AMPUL.NEB ONE (18:20)
[2018-08-16] MEDS ORDERED: ALBUTEROL FS 2.5 MG/3 ML VIAL.NEB ONE (18:20)
[2018-08-16] MEDS ORDERED: IPRATROPIUM NEB FS 0.5 MG/2.5 ML AMPUL.NEB NEB ONE (18:30)
[2018-08-16] MEDS ORDERED: ALBUTEROL FS 2.5 MG/3 ML VIAL.NEB NEB ONE (18:30)
[2018-08-16] MEDS ORDERED: methylPREDNISolone SOD SUCC 125 MG/2ML VIAL IV ONE (18:30)
[2018-08-16 18:34] LABS: ALANINE AMINOTRANSFERASE 130 U/L (12-78); ALBUMIN 3.2 g/dL (3.4-5.0); ALKALINE PHOSPHATASE 136 U/L (46-116); ASPARTATE AMINOTRANSFERASE 41 U/L (15-37); B-TYPE NATRIURETIC PEPTIDE 5759 PG/ML (0-125); BILIRUBIN,DIRECT 0.1 mg/dL (0.0-0.2); BILIRUBIN,TOTAL 0.4 mg/dL (0.2-1.0); TOTAL PROTEIN, SERUM 7.2 g/dL (6.4-8.2)
[2018-08-16] MEDS ORDERED: ASPIRIN 81 MG TAB.CHEW ONE (18:49)
[2018-08-16] MEDS ORDERED: ASPIRIN 81 MG TAB.CHEW PO ONE (19:00)
[2018-08-16] MEDS ORDERED: ESOM40CA PO (19:12)
[2018-08-16] MEDS ORDERED: BUME1TAB4 PO (19:12)
[2018-08-16] MEDS ORDERED: CHOL200026 PO (19:12)
--- NOTE | 2018-08-16 19:29 | NUR ---
REPORT GIVEN TO TATIANA FUENTES FOR GALO.
[2018-08-16] MEDS ORDERED: LEVOFLOXACIN 750 MG /D5W 150ML PIGGYBACK IV ONE (19:30)
--- NOTE | 2018-08-16 19:35 | NUR ---
Called [facility] for panel call.
--- NOTE | 2018-08-16 19:53 | NUR ---
SEEN PATIENT WITH BREATHING TREATMENT ON GOING,NOT IN ANY DISTRESS.AWAKE,ALERT.
[2018-08-16] MEDS ORDERED: LEVOFLOXACIN 750 MG /D5W 150ML 150 ML IV ONE (19:56)
[2018-08-16 20:05] VITALS: BP 150/81
--- NOTE | 2018-08-16 20:24 | NUR ---
2015 PATIENT C/O PAIN POINTING AT LEFT UPPER CHEST ,DR. PARKS MADE AWARE
--- NOTE | 2018-08-16 20:55 | NUR ---
pt is assigned to tele rm#: [id number], DX: chest pain, n-stemi, and accepting: Chang Tanner NP
[2018-08-16] MEDS ORDERED: IV NS 0.9% 1,000 ML BAG IV ONE (21:00)
[2018-08-16] MEDS ORDERED: MORPHINE SULFATE INJ 2 MG/ML DISP.SYRIN IV ONE (21:00)
[2018-08-16] MEDS ORDERED: MORPHINE SULFATE INJ 10 MG/ML DISP.SYRIN ONE (21:22)
--- NOTE | 2018-08-16 21:45 | NUR ---
REPORT GIVEN TO NURSE PURDY AT THIS TIME ON BEHALF OF PRIMARY NURSE TATIANA.
--- NOTE | 2018-08-16 22:05 | NUR ---
RN ADMITTING NOTES RECEIVED PT FROM ER VIA [facility]. PT IS AMBULATORY WITH ASSIST. A/OX3, FARSI SPEAKING, SON AT BED SIDE. PT C/O CHEST PAIN WITH SCALE OF 6/10. PLACED ON 2L O2 VIA NC. PT REPORTS RELIEF. VS TAKEN AND ASSESSMENT DONE. ORIENTED TO ROOM AND USE OF CALL LIGHT. SAFETY MEASURES IN PLACED. CALL LIGHT WITHIN EASY REACH. WILL CONT TO MONITOR
[2018-08-16] MEDS ORDERED: ACETAMINOPHEN 325 MG TABLET PO PRN (22:30)
[2018-08-16] MEDS ORDERED: Z GUARD REMEDY 2 OZ OINT TP PRN (22:30)
[2018-08-16] MEDS ORDERED: MAGNESIUM HYDROXIDE 30 ML UDC PO PRN (22:30)
[2018-08-16] MEDS ORDERED: MORPHINE SULFATE INJ 2 MG/ML DISP.SYRIN IV PRN (22:30)
[2018-08-16] MEDS ORDERED: ENOXAPARIN SODIUM 40 MG/0.4 ML DISP.SYRIN SQ SCH (22:30)
[2018-08-16] MEDS ORDERED: MAG HYDROX/AL HYDROX/SIMETH 30 ML UDC PO PRN (22:30)
[2018-08-16] MEDS ORDERED: ONDANSETRON HCL/PF 4 MG/2 ML VIAL IVP PRN (22:30)
[2018-08-16] MEDS ORDERED: VANCOMYCIN 1 GM VIAL ONE (22:59)
[2018-08-16] MEDS ORDERED: VANCOMYCIN 1.25 GM in IV D5W 500 ML IV ONE (23:00)
[2018-08-16] MEDS: HYDROCODONE/APAP 5/325MG 1 EACH TABLET PO PRN (23:08)
--- NOTE | 2018-08-16 23:15 | NUR ---
RN NOTES RECEIVED CRITICAL LAB OF LACTIC ACID=4.8, PAGED CLINICAL NURSING INSTRUCTOR HINA, WAITING TO CALL BACK
--- NOTE | 2018-08-16 23:25 | NUR ---
RN NOTES SPOKE WITH FLAKER OPERATOR HINA, NOTIFIED LACTIC ACID LEVEL=4.8, PER FLAKER OPERATOR WILL PUT ORDER
[2018-08-16] MEDS ORDERED: FUROSEMIDE 40 MG/4 ML VIAL IV ONE (23:30)
[2018-08-16] MEDS ORDERED: VANCOMYCIN 1 GM in IV D5W 250ml IV ONE (23:30)
[2018-08-17] VITALS (7 sets, daily range): BP systolic 91–114; BP diastolic 59–78
[2018-08-17] MEDS ORDERED: PIPERACILLIN /TAZOBACTAM 3.375 G in IV D5W 50 ML IV ONE ×2
[2018-08-17] MEDS ORDERED: PIPERACILLIN /TAZOBACTAM 3.375 G VIAL IV ONE (01:20)
--- NOTE | 2018-08-17 02:39 | NUR ---
RN NOTES RECEIVED CRITICAL LAB LACTIC ACID=5.7, CALLED [facility], PAGED SOCCER COACH HINA. AWAITING CALL BACK FROM
--- NOTE | 2018-08-17 03:05 | NUR ---
0303 CORY SANTAMARIA CALLED BACK AND MADE AWARE OF LATEST LACTIC ACID RESULT OF 5.7 AND UPDATED HIM ON PATIENT'S CURRENT CONDITION INCLUDING PATIENT GOING INTO UNCONTROLLED A-FIB WITH RVR AT TIMES. HE ORDERED TO RE CHECK LACTIC ACID IN FOUR HOURS. ORDER NOTED.
[2018-08-17] MEDS: HYDROCODONE/APAP 5/325MG 1 EACH TABLET PO PRN ×3 (04:30→21:22)
--- NOTE | 2018-08-17 07:01 | NUR ---
RN NOTES PT IN STABLE CONDITION. NO ACUTE CHANGES THROUGHOUT SHIFT. ALL NEEDS ANTICIPATED. SAFETY MEASURES OBSERVED AT ALL TIMES. ENDORSED TO AM SHIFT RN FOR GALO
[2018-08-17 07:46] LABS: BASOPHILS % (AUTO) 0.1 % (0.0-2.0); EOSINOPHILS % (AUTO) 0.1 % (0.0-6.0); HEMATOCRIT 37 % (33-45); HEMOGLOBIN 11.9 g/dL (11.5-14.8); LYMPHOCYTES # (AUTO) 0.3 /CMM (0.8-4.8); LYMPHOCYTES % (AUTO) 5.4 % (20.0-44.0); MEAN CORPUSCULAR HGB CONC 33 g/dl (31.0-36.0); MEAN CORPUSCULAR VOLUME 95 fL (82-100); MONOCYTES # (AUTO) 0.1 /CMM (0.1-1.30); MONOCYTES % (AUTO) 1.3 % (2.0-12.0); NEUTROPHILS # (AUTO) 6.1 /CMM (1.8-8.9); NEUTROPHILS % (AUTO) 93.1 % (43.0-81.0); PLATELET COUNT (AUTO) 292 /CMM (150-450); RED BLOOD CELL COUNT(AUTO) 3.87 MIL/uL (4.0-5.2); WHITE BLOOD COUNT (AUTO) 6.5 K/uL (4.3-11.0)
[2018-08-17] MEDS ORDERED: FEE PK DOSING 1 MIN EA MC ONE (07:52)
[2018-08-17 08:06] LABS: ALBUMIN 3.3 g/dL (3.4-5.0); BILIRUBIN,DIRECT 0.1 mg/dL (0.0-0.2); BILIRUBIN,TOTAL 0.5 mg/dL (0.2-1.0); CALCIUM, SERUM 9.2 mg/dL (8.5-10.1); CREATININE 1.1 mg/dL (0.6-1.3); MAGNESIUM 1.8 mg/dL (1.8-2.4); PHOSPHORUS 3.4 mg/dL (2.5-4.9); POTASSIUM 4.6 mmol/L (3.5-5.1); TOTAL PROTEIN, SERUM 7.2 g/dL (6.4-8.2)
[2018-08-17 08:08] LABS: THYROID STIMULATING HORMONE 0.447 uIU/mL (0.358-3.74)
[2018-08-17] MEDS ORDERED: ISOSORBIDE MONONITRATE 60 MG TAB.SR.24H PO SCH (09:00)
[2018-08-17] MEDS: CLOPIDOGREL BISULFATE 75 MG TABLET PO SCH (09:22)
[2018-08-17] MEDS: FOLIC ACID 1 MG TABLET PO SCH (09:22)
[2018-08-17] MEDS: CHOLECALCIFEROL 1,000 UNIT TABLET (VIT D3) PO SCH (09:22)
[2018-08-17] MEDS: METOPROLOL TARTRATE 25 MG TABLET PO SCH (09:23)
[2018-08-17] MEDS: RIVAROXABAN 15 MG TABLET PO SCH (09:24)
[2018-08-17] MEDS: PANTOPRAZOLE 40 MG TABLET.DR PO SCH (09:25)
[2018-08-17] MEDS: PIPERACILLIN /TAZOBACTAM 3.375 G in IV D5W 50 ML IV SCH ×3 (09:25→18:44)
--- NOTE | 2018-08-17 10:15 | NUR ---
RN NOTE: PATIENT NOTED C/O CHEST PAIN 7/10, RADIATING TO BACK, NECK. DR. MARTINEZ & DR Melissa CAMPBELL NOTIFIED, STAT EKG WAS DONE, NORCO PO 1 TAB WAS GIVEN ORDERED. NOTED EFFECTIVE LATER. WILL CONTINUE TO MONITOR. REMAINS A--FIB CONTROLLED ON TELE MONITOR.
[2018-08-17] MEDS ORDERED: ISOSORBIDE MONONITRATE (30MG) 30 MG TAB.SR.24H PO SCH (10:30)
[2018-08-17] MEDS: VANCOMYCIN 1 GM in IV D5W 250 ML IV SCH ×2 (12:07→23:44)
[2018-08-17] MEDS: DIGOXIN INJ 0.5 MG/2 ML AMPUL IV SCH ×3 (12:08→23:47)
[2018-08-17] MEDS: ISOSORBIDE MONONITRATE (30MG) 30 MG TAB.SR.24H PO SCH (12:08)
--- NOTE | 2018-08-17 17:35 | NUR ---
Met with patient at bedside,she speaks Farsi only. Spoke with daughter on the phone, states patient lives with spouse on the 3rd floor apartment that has elevator access. Prior to admission, patient was ambulating with a walker as needed and independent with adl's. Has 80hrs of IHSS and currently on service with homehealth. Family to bring homehealth info when available. Current dc plan is to return home, family will provide ride. Addendum: 08/17/18 at 1737 by QUOC SOLIS RN Amended: Links added.
--- NOTE | 2018-08-17 17:46 | NUR ---
RN NOTE: PATIENT REMAINS ALERT AWAKE ORIENTED X 4. ON 2 LPM O2 VIA NC, NO BREATHING DIFFICULTY NOTED. AT THIS TIME DENIES CHEST PAIN/DISCOMFORT. SAFETY MEASURES OBSERVED. ENCOURAGE TO USE CALL LIGHT FOR ASSISTANCE. CONTINUE WITH IV ATBS ORDERED.
--- NOTE | 2018-08-17 20:05 | NUR ---
BULLDOGGER OPENING NOTE RECEIVED PT IN BED, AWAKE, A/OX 3, FARSI SPEAKING. BREATHING EVEN AND UNLABORED ON RA. NO COMPLAINT OF CHEST PAIN AT THE MOMENT. IV ACCESS ON THE L AC G20 ON TKO. BED IN LOWEST LOCKED POSITION, CALL LIGHT WITHIN REACH AT ALL TIMES WILL CONTINUE TO MONITOR.
[2018-08-17] MEDS: LEVOFLOXACIN 750 MG /D5W 150ML 750 MG in PREMIX 1 EA IV SCH (20:13)
[2018-08-18] VITALS (8 sets, daily range): BP systolic 100–125; BP diastolic 54–76
[2018-08-18] MEDS: PIPERACILLIN /TAZOBACTAM 3.375 G in IV D5W 50 ML IV SCH ×4 (00:50→18:14)
[2018-08-18 06:36] LABS: BASOPHILS % (AUTO) 0.1 % (0.0-2.0); EOSINOPHILS % (AUTO) 0.5 % (0.0-6.0); HEMATOCRIT 34 % (33-45); LYMPHOCYTES # (AUTO) 1.5 /CMM (0.8-4.8); LYMPHOCYTES % (AUTO) 15.8 % (20.0-44.0); MEAN CORPUSCULAR HGB CONC 33 g/dl (31.0-36.0); MEAN CORPUSCULAR VOLUME 96 fL (82-100); MONOCYTES # (AUTO) 0.6 /CMM (0.1-1.30); MONOCYTES % (AUTO) 6.1 % (2.0-12.0); NEUTROPHILS # (AUTO) 7.2 /CMM (1.8-8.9); NEUTROPHILS % (AUTO) 77.5 % (43.0-81.0); PLATELET COUNT (AUTO) 282 /CMM (150-450); RED BLOOD CELL COUNT(AUTO) 3.51 MIL/uL (4.0-5.2); WHITE BLOOD COUNT (AUTO) 9.3 K/uL (4.3-11.0)
[2018-08-18 06:53] LABS: CALCIUM, SERUM 8.6 mg/dL (8.5-10.1); CREATININE 1.2 mg/dL (0.6-1.3); POTASSIUM 4.1 mmol/L (3.5-5.1)
--- NOTE | 2018-08-18 06:54 | NUR ---
ACID STRENGTH INSPECTOR CLOSING NOTES PT REMAINS IN BED, AWAKE ALERT ORIENTED X4, BREATHING EVEN AND UNLABORED ON 2L OF 02 VIA NC. PRODUCTIVE COUGHING THROUGH THE NIGHT. NO COMPLAINT OF PAIN AT THE MOMENT. IV ACCESS ON THE L AC TKO. ALL NEEDS ATTENDED TO, BED IN LOWEST LOCKED POSITION, CALL LIGHT WITHIN REACH AT ALL TIMES. WILL ENDORSE TO DAY NURSE FOR GALO
--- NOTE | 2018-08-18 07:00 | NUR ---
MERCHANDISING DIRECTOR NOTES RECEIVED PT IN BED, A/O X3. FARSI SPEAKING. PT ON 2L NC. TOLERATING WELL. PT HAS LAC IV PATENT/FLUSHING. PT COMPLAINING OF CHEST PAIN. PER PM SHIFT PT HAS BEEN GIVEN NORCO AND PT STATES IT IS BECAUSE OF THE PNA. WILL NOTIFY . BED IN LOCKED/LOWEST POSITION. CALL LIGHT IN REACH. WILL CONT TO MONITOR.
--- NOTE | 2018-08-18 07:00 | NUR ---
PSYCH NURSE OPENING NOTES RECEIVED PT IN BED, A/OX4. PT ON 2L NC. TOLERATING WELL. NO S/SX OF RESP DISTRESS. PT STATES, "CHEST PAIN." PM SHIFT SAID SHE TAKES NORCO FOR IT. PT REFUSES NORCO. IV FLUIDS RUNNING VIA PATENT AC IV SITE. NO S/SX OF INFECTION. BED IN LOCKED/LOWEST POSITION. CALL LIGHT IN REACH. WILL CONT TO MONITOR.
[2018-08-18] MEDS: CLOPIDOGREL BISULFATE 75 MG TABLET PO SCH (08:43)
[2018-08-18] MEDS: FOLIC ACID 1 MG TABLET PO SCH (08:43)
[2018-08-18] MEDS: METOPROLOL TARTRATE 25 MG TABLET PO SCH (08:45)
[2018-08-18] MEDS: ISOSORBIDE MONONITRATE (30MG) 30 MG TAB.SR.24H PO SCH (08:45)
[2018-08-18] MEDS: CHOLECALCIFEROL 1,000 UNIT TABLET (VIT D3) PO SCH (08:46)
[2018-08-18] MEDS: RIVAROXABAN 15 MG TABLET PO SCH (08:47)
[2018-08-18] MEDS: PANTOPRAZOLE 40 MG TABLET.DR PO SCH (08:55)
[2018-08-18] MEDS: VANCOMYCIN 1 GM in IV D5W 250 ML IV SCH (12:09)
--- NOTE | 2018-08-18 12:57 | NUR ---
PROJECTION CAMERA OPERATOR NOTES NOTIFIED MD OF ELEVATED TROPONIN.
--- NOTE | 2018-08-18 14:02 | NUR ---
SURFACE SUPPLY BREATHING APPARATUS NOTES PT DOES NOT WANT ANOTHER IV. PER PHARM, OK FOR VANCO TO INFUSE FIRST, THEN HANG OTHER MEDS AFTER. PHARM AWARE OF LATE INFUSION
[2018-08-18] MEDS: LACTOBACILLUS RHAMNOSUS GG 1 EACH CAP.SPRINK PO SCH (16:16)
[2018-08-18] MEDS: HYDROCODONE/APAP 5/325MG 1 EACH TABLET PO PRN (18:43)
--- NOTE | 2018-08-18 18:55 | NUR ---
clerk telegraph service notes re: ct scan liver mass per dr marcella pink to order liver protocol. left a message for music instructor
--- NOTE | 2018-08-18 19:00 | NUR ---
CAKE FORMER CLOSING NOTES ENDORSED CARE TO PM SHIFT. PT IN BED. NORCO GIVEN. ALL NEEDS ATTENDED TO. CALL LIGHT IN REACH.
--- NOTE | 2018-08-18 19:43 | NUR ---
RN NOTE REASSESSED NORCO, PER PATIENT NO CHEST PAIN AT THIS TIME, WILL CONTINUE TO MONITOR PATIENT
[2018-08-18] MEDS: LEVOFLOXACIN 750 MG /D5W 150ML 750 MG in PREMIX 1 EA IV SCH (20:22)
[2018-08-18] MEDS: VANCOMYCIN 0.75 GM in IV D5W 250 ML IV SCH (23:09)
[2018-08-18] MEDS: HYDROMORPHONE INJ 2 MG/ML DISP.SYRIN IV PRN (23:10)
--- NOTE | 2018-08-18 23:10 | NUR ---
RN NOTE ADMINISTERED PAIN MEDICINE DILAUDID IV PER MD ORDER, VITAL SIGNS STABLE, CONFIRMED WITH DAUGHTER JAMIE, PER DAUGHTER OK TO ADMINISTER
[2018-08-19] VITALS (7 sets, daily range): BP systolic 91–120; BP diastolic 57–79
[2018-08-19] MEDS: PIPERACILLIN /TAZOBACTAM 3.375 G in IV D5W 50 ML IV SCH ×5 (00:30→23:31)
--- NOTE | 2018-08-19 06:51 | NUR ---
RN NOTE PATIENT IS STABLE, RESTED WELL AT NIGHT, PAIN IS WELL CONTROLLED WITH PAIN MEDICINE, IV SITE IS INTACT, NO S/S OF INFECTION/INFILTRATION NOTED, ALL SAFETY MEASURES TAKEN, BED ALARM AND CHECKED PRIOR, CALL LIGHT NEXT TO PATIENT, BED IN THE LOWEST POSITION, SIDE RAILS UP X 2, WILL ENDORSE TO AM SHIFT TO CONTINUE CARE
--- NOTE | 2018-08-19 07:00 | NUR ---
CELLULOSE INSULATION HELPER NOTES RECEIVED PT IN BED, A/OX3. PT IS VPACING AFIB ON TELE. ON 2L NC TOLERATING WELL. NO S/SX OF DISTRESS. IV SITE PATENT/FLUSHED. CLEAR BREATH SOUNDS. ACTIVE BS. PT AMBULATES TO BR WITH ASSISTANCE. STRICT I/O'S MAINTAINED. BED IN LOCKED/LOWEST POSITION. CALL LIGHT IN REACH. WILL CONT TO MONITOR.
[2018-08-19 07:32] LABS: BASOPHILS % (AUTO) 0.6 % (0.0-2.0); EOSINOPHILS % (AUTO) 2.8 % (0.0-6.0); HEMATOCRIT 36 % (33-45); HEMOGLOBIN 11.8 g/dL (11.5-14.8); LYMPHOCYTES # (AUTO) 1.7 /CMM (0.8-4.8); LYMPHOCYTES % (AUTO) 29.4 % (20.0-44.0); MEAN CORPUSCULAR HGB CONC 32 g/dl (31.0-36.0); MEAN CORPUSCULAR VOLUME 95 fL (82-100); MONOCYTES # (AUTO) 0.5 /CMM (0.1-1.30); MONOCYTES % (AUTO) 9.2 % (2.0-12.0); NEUTROPHILS # (AUTO) 3.4 /CMM (1.8-8.9); PLATELET COUNT (AUTO) 284 /CMM (150-450); RED BLOOD CELL COUNT(AUTO) 3.83 MIL/uL (4.0-5.2); WHITE BLOOD COUNT (AUTO) 5.9 K/uL (4.3-11.0)
[2018-08-19 07:50] LABS: CALCIUM, SERUM 8.7 mg/dL (8.5-10.1); CREATININE 1.1 mg/dL (0.6-1.3); POTASSIUM 4.7 mmol/L (3.5-5.1)
[2018-08-19] MEDS: FOLIC ACID 1 MG TABLET PO SCH (08:42)
[2018-08-19] MEDS: CLOPIDOGREL BISULFATE 75 MG TABLET PO SCH (08:43)
[2018-08-19] MEDS: CHOLECALCIFEROL 1,000 UNIT TABLET (VIT D3) PO SCH (08:43)
[2018-08-19] MEDS: RIVAROXABAN 15 MG TABLET PO SCH (08:44)
[2018-08-19] MEDS: LACTOBACILLUS RHAMNOSUS GG 1 EACH CAP.SPRINK PO SCH ×2 (08:44→17:05)
[2018-08-19] MEDS: PANTOPRAZOLE 40 MG TABLET.DR PO SCH (08:44)
[2018-08-19] MEDS: ISOSORBIDE MONONITRATE (30MG) 30 MG TAB.SR.24H PO SCH (08:45)
[2018-08-19] MEDS: METOPROLOL TARTRATE 25 MG TABLET PO SCH (08:47)
[2018-08-19] MEDS ORDERED: CT SWABBABLE VALVE TRANS SET 1 EA INFUS.SET MC ONE (09:53)
[2018-08-19] MEDS ORDERED: IV NS 0.9% 250 ML IV ONE (09:53)
[2018-08-19] MEDS ORDERED: IOHEXOL-300 100 ML VIAL IV ONE (09:53)
--- NOTE | 2018-08-19 10:00 | NUR ---
LUSTERER NOTES PT LEFT FLOOR FOR CT SCAN. DAUGHTER WAS CONTACTED TO TRANSLATE.
[2018-08-19] MEDS: VANCOMYCIN 0.75 GM in IV D5W 250 ML IV SCH ×2 (11:21→22:13)
--- NOTE | 2018-08-19 18:55 | NUR ---
PHYSICAL EDUCATION TEACHER NOTES PT STABLE, FAMILY AT BEDSIDE. PT AWARE THAT SHE WILL BE NPO FOR CT TMRW.ALL NEEDS ATTENDED. CALL LIGHT IN REACH.
--- NOTE | 2018-08-19 19:00 | NUR ---
RN NOTES RECEIVE PT IN THE BED A/O X 3 IN STABLE CONDITION, NOT IN DISTRESS, SAFETY MEASURES IN PLACE. WILL CONTINUE TO MONITOR.
[2018-08-19] MEDS: LEVOFLOXACIN (750 MG) 750 MG TABLET PO SCH (20:37)
[2018-08-19] MEDS: HYDROMORPHONE INJ 2 MG/ML DISP.SYRIN IV PRN (22:05)
[2018-08-20] VITALS: BP 108/70
[2018-08-20 04:00] VITALS: BP 107/70
[2018-08-20] MEDS: PIPERACILLIN /TAZOBACTAM 3.375 G in IV D5W 50 ML IV SCH ×3 (05:05→17:07)
--- NOTE | 2018-08-20 06:13 | NUR ---
RN CLOSING NOTE ASLEEP AND EASILY AWAKEN, STABLE CONDITION, MAINTAINS NPO AT MIDNIGHT, NOT IN DISTRESS. NO COMPLAIN OF CHEST PAIN. RESPIRATIONS EVEN AND UNLABORED. NURSING CARE RENDERED, GOOD SKIN CARE PROVIDED. NEEDS ATTENDED AND ANTICIPATED. KEPT CLEAN AND DRY AND COMFORT, SAFETY MEASURES IN PLACE, CALL LIGHT WITHIN REACH. WILL ENDORSE TO TAILOR MEN'S READY TO WEAR FOR GALO. Addendum: 08/20/18 at 0615 by DENIA CHENG RN 70'S HR WITH READING OF A-FIB V-PACING IN THE TELE MTR. PT STABLE
[2018-08-20 07:25] LABS: BASOPHILS % (AUTO) 0.6 % (0.0-2.0); EOSINOPHILS % (AUTO) 2.6 % (0.0-6.0); HEMATOCRIT 33 % (33-45); HEMOGLOBIN 10.8 g/dL (11.5-14.8); LYMPHOCYTES # (AUTO) 1.3 /CMM (0.8-4.8); MEAN CORPUSCULAR HGB CONC 33 g/dl (31.0-36.0); MEAN CORPUSCULAR VOLUME 96 fL (82-100); MONOCYTES # (AUTO) 0.5 /CMM (0.1-1.30); MONOCYTES % (AUTO) 8.2 % (2.0-12.0); NEUTROPHILS # (AUTO) 4.2 /CMM (1.8-8.9); NEUTROPHILS % (AUTO) 67.6 % (43.0-81.0); PLATELET COUNT (AUTO) 281 /CMM (150-450); RED BLOOD CELL COUNT(AUTO) 3.44 MIL/uL (4.0-5.2); WHITE BLOOD COUNT (AUTO) 6.2 K/uL (4.3-11.0)
[2018-08-20 07:27] LABS: CALCIUM, SERUM 8.9 mg/dL (8.5-10.1); POTASSIUM 4.8 mmol/L (3.5-5.1)
[2018-08-20 08:00] VITALS: BP 113/68
--- NOTE | 2018-08-20 08:00 | NUR ---
PRESIDENT CELEBRITY ACQUISTION NOTE PATIENT IN BED ,ALERT, ORIENTED X3 , ON 3L NC OF O2 , SAT 98% , ON TELE MONITOR V PACING HR 70 , WILL KEEP NPO AT THIS TIME , FOR CT ANGIOGRAM , BED IN LOWEST AND LOCKED POSITION CALL LIGHT WITHIN REACH,PLAN OF CARE DISCUSSED WITH PATIENT. WILL CONT TO MONITOR CLOSELY
[2018-08-20] MEDS: FOLIC ACID 1 MG TABLET PO SCH (09:24)
[2018-08-20] MEDS: CLOPIDOGREL BISULFATE 75 MG TABLET PO SCH (09:24)
[2018-08-20] MEDS: CHOLECALCIFEROL 1,000 UNIT TABLET (VIT D3) PO SCH (09:24)
[2018-08-20] MEDS: LACTOBACILLUS RHAMNOSUS GG 1 EACH CAP.SPRINK PO SCH ×2 (09:24→16:28)
[2018-08-20] MEDS: ISOSORBIDE MONONITRATE (30MG) 30 MG TAB.SR.24H PO SCH (09:25)
[2018-08-20] MEDS: RIVAROXABAN 15 MG TABLET PO SCH (09:26)
[2018-08-20] MEDS: METOPROLOL TARTRATE 25 MG TABLET PO SCH ×3 (09:39→17:07)
[2018-08-20] MEDS: PANTOPRAZOLE 40 MG TABLET.DR PO SCH (09:46)
--- NOTE | 2018-08-20 10:00 | NUR ---
telephony engineer note per dr velasquez no need to be on npo for ct angio
--- NOTE | 2018-08-20 10:30 | NUR ---
teleservices representative note dr dr velasquez notified that ct angio cant be done today ,will be done tomorrow
--- NOTE | 2018-08-20 10:40 | NUR ---
telemrnnnote per radiologist and nursing home management supervisor cta will be done tomorrow in am ,will f\u
[2018-08-20 12:00] VITALS: BP 97/61
[2018-08-20] MEDS: HYDROMORPHONE INJ 2 MG/ML DISP.SYRIN IV PRN ×2 (12:01→22:36)
--- NOTE | 2018-08-20 12:10 | NUR ---
ORGAN TUNER NOTE C\O CHEST PAIN ,EKG DONE ORDERED, DILAUDID 0,25 MG GIVEN ORDERED, BP 97/55 SAT 100% WILL MONITOR
[2018-08-20] MEDS: VANCOMYCIN 0.75 GM in IV D5W 250 ML IV SCH ×2 (12:24→22:32)
--- NOTE | 2018-08-20 12:59 | NUR ---
SAIL REPAIR PERSON NOTE STATED THAT FEELING BETTER AFTER PAIN MED WAS GIVEN, WILL F\U
--- NOTE | 2018-08-20 15:47 | NUR ---
ORANGE PICKER MACHINE OPERATOR NOTE SLEEPING COMFORTABLY AT THIS TIME, NO SOB NOTED .BED IN LOWEST AND LOCKED POSITION ,WILL CONT TO MONITOR
[2018-08-20 16:00] VITALS: BP 94/65
--- NOTE | 2018-08-20 16:30 | NUR ---
PAINT SPRAYER SANDBLASTER NOTE C\O PAIN LT FOOT TYLENOL, PO GIVEN ,WILL F\U
--- NOTE | 2018-08-20 18:43 | NUR ---
ICT QUALITY ASSURANCE ENGINEER NOTE ALL NEEDS ATTENDED, HAVING DINNER ,ABLE TO EAT SELF ,WILL CONT TO MONITOR CLOSELY
[2018-08-20] MEDS: LEVOFLOXACIN (750 MG) 750 MG TABLET PO SCH (19:56)
[2018-08-20 20:00] VITALS: BP 111/74
--- NOTE | 2018-08-20 22:36 | NUR ---
RN NOTE PAIN 8/10, DESCRIBED GENERALIZED, PAIN MED ADMINISTERED ORDERED BP 130/84
[2018-08-21] VITALS (9 sets, daily range): BP systolic 100–127; BP diastolic 64–73
[2018-08-21] MEDS: PIPERACILLIN /TAZOBACTAM 3.375 G in IV D5W 50 ML IV SCH ×4 (00:36→17:05)
[2018-08-21] MEDS: METOPROLOL TARTRATE 25 MG TABLET PO SCH ×5 (00:37→17:05)
[2018-08-21] MEDS: HYDROMORPHONE INJ 2 MG/ML DISP.SYRIN IV PRN ×3 (02:39→22:40)
[2018-08-21 06:35] LABS: BASOPHILS % (AUTO) 0.4 % (0.0-2.0); EOSINOPHILS % (AUTO) 3.8 % (0.0-6.0); HEMATOCRIT 31 % (33-45); HEMOGLOBIN 10.1 g/dL (11.5-14.8); LYMPHOCYTES # (AUTO) 1.5 /CMM (0.8-4.8); LYMPHOCYTES % (AUTO) 28.9 % (20.0-44.0); MEAN CORPUSCULAR HGB CONC 32 g/dl (31.0-36.0); MEAN CORPUSCULAR VOLUME 95 fL (82-100); MONOCYTES # (AUTO) 0.5 /CMM (0.1-1.30); MONOCYTES % (AUTO) 9.9 % (2.0-12.0); NEUTROPHILS # (AUTO) 2.9 /CMM (1.8-8.9); PLATELET COUNT (AUTO) 257 /CMM (150-450); RED BLOOD CELL COUNT(AUTO) 3.27 MIL/uL (4.0-5.2); WHITE BLOOD COUNT (AUTO) 5.1 K/uL (4.3-11.0)
[2018-08-21 06:41] LABS: CALCIUM, SERUM 8.8 mg/dL (8.5-10.1); CREATININE 1.1 mg/dL (0.6-1.3); POTASSIUM 4.6 mmol/L (3.5-5.1)
[2018-08-21] MEDS: PANTOPRAZOLE 40 MG TABLET.DR PO SCH (07:30)
--- NOTE | 2018-08-21 07:33 | NUR ---
TELE/RN Patient received Patient received from shift production supervisor. A/O X4, vital signs within normal range, denies any chest pain or shortness of breath. Heplock to right forearmflushing well, no signs of infiltration seen. NPO at this time for CT angiogram later this morning, consent form signed. Safety measures in place, bed in low setting, side rails X2 in upright position. Call light within reach. Will continue to monitor and ensure safety.
[2018-08-21] MEDS: LACTOBACILLUS RHAMNOSUS GG 1 EACH CAP.SPRINK PO SCH ×2 (08:09→17:05)
[2018-08-21] MEDS: FOLIC ACID 1 MG TABLET PO SCH (08:09)
[2018-08-21] MEDS: CHOLECALCIFEROL 1,000 UNIT TABLET (VIT D3) PO SCH (08:10)
[2018-08-21] MEDS: ISOSORBIDE MONONITRATE (30MG) 30 MG TAB.SR.24H PO SCH (09:00)
[2018-08-21] MEDS: CLOPIDOGREL BISULFATE 75 MG TABLET PO SCH (09:00)
[2018-08-21] MEDS: RIVAROXABAN 15 MG TABLET PO SCH (09:00)
--- NOTE | 2018-08-21 09:54 | NUR ---
TELE/wheel filler update Spoke with daughter at patient's requested. Updated as to plan for today, family in agreement.
[2018-08-21] MEDS ORDERED: NITROGLYCERIN 0.4 MG/TAB BOTTLE SL ONE (11:00)
[2018-08-21] MEDS ORDERED: METOPROLOL TARTRATE 50 MG TABLET PO ONE (11:00)
[2018-08-21] MEDS ORDERED: CT SWABBABLE VALVE TRANS SET 1 EA INFUS.SET MC ONE (11:19)
[2018-08-21] MEDS ORDERED: IOHEXOL-350 100 ML VIAL IV ONE (11:19)
[2018-08-21] MEDS ORDERED: IV NS 0.9% 250 ML IV ONE (11:19)
--- NOTE | 2018-08-21 11:29 | NUR ---
TELE/RN CT angiogram Patient off unit at this time for CT angiogram, medical record with patient, new heplock inserted to left upper arm.
[2018-08-21] MEDS ORDERED: IV NS 0.9% 500 ML IV ONE (11:38)
[2018-08-21] MEDS ORDERED: METOPROLOL TARTRATE INJ 5 MG/5 ML AMPUL ONE (11:45)
--- NOTE | 2018-08-21 12:07 | NUR ---
Pt medicated with 5 mg of Metoprolol but paced at 70 Dr Rousseau notified pt is paced. One Nitro sl at 1203 prior to scanning. pt tolerated procedure well. VSS.
[2018-08-21] MEDS: VANCOMYCIN 0.75 GM in IV D5W 250 ML IV SCH ×2 (12:26→22:39)
--- NOTE | 2018-08-21 12:45 | NUR ---
TELE/RN Back to room Patient back to room following angiogram, vital signs upon return within normal limits. Denies any chest pain. Diet ordered.
--- NOTE | 2018-08-21 13:00 | NUR ---
TELE/RN Lunch Patient provided with lunch tray but refusing to eat, instead eating food from home. Asked and provided with hot tea.
--- NOTE | 2018-08-21 17:00 | NUR ---
TELE/RN Pain Patient stating that she is in pain, dilaudid given as ordered, will monitor effectiveness. All IVAB hung as ordered.
--- NOTE | 2018-08-21 18:05 | NUR ---
TELE/RN Orders Call received from gee Martinez to be ordered, consent form to be signed.
--- NOTE | 2018-08-21 18:37 | NUR ---
TELE/RN End note Pain appears to be controlled, vital signs remain within normal range for patient. Will endorse to machinist 2nd shift.
--- NOTE | 2018-08-21 20:33 | NUR ---
RN NOTE RECEIVED PATIENT IN THE BED, ALERT/ORIENTED X 3, NO DISTRESS NOTED, NO PAIN OR DISCOMFORT NOTED, FARSI SPEAKING, COMMUNICATE WITH THE PATIENT VIA AMNA INTERPRETATION PHONE (BLUE), CONSENTS FOR NM MYOCARDIAL STRESS TEST IN THE CHART, ALL SAFETY MEASURERS TAKEN, WILL CONTINUE TO MONITOR PATIENT Addendum: 08/21/18 at 2037 by BEBO CARRERA RN PATIENT WILL REMAIN NPO AFTER MIDNIGHT
[2018-08-21] MEDS: LEVOFLOXACIN (750 MG) 750 MG TABLET PO SCH (20:46)
[2018-08-22] VITALS: BP 95/65
[2018-08-22] MEDS: PIPERACILLIN /TAZOBACTAM 3.375 G in IV D5W 50 ML IV SCH ×4 (00:41→17:56)
[2018-08-22 04:00] VITALS: BP_SYST 124; BP_SYST 99; BP_DIAS 65; BP_DIAS 74
[2018-08-22] MEDS: HYDROMORPHONE INJ 2 MG/ML DISP.SYRIN IV PRN ×2 (04:33→11:31)
[2018-08-22] MEDS: METOPROLOL TARTRATE 25 MG TABLET PO SCH ×5 (05:31→18:00)
--- NOTE | 2018-08-22 06:42 | NUR ---
RN NOTE PATIENT REMAINED STABLE DURING MY SHIFT, REMAINED NPO AFTER MIDNIGHT, PAIN IS WELL CONTROLLED WITH PAIN MEDICATION, ALL SAFETY MEASURES TAKEN, WILL PROVIDE BEDSIDE REPORT TO AM SHIFT TO CONTINUE CARE
[2018-08-22] MEDS: PANTOPRAZOLE 40 MG TABLET.DR PO SCH (07:30)
[2018-08-22 07:32] LABS: BASOPHILS % (AUTO) 0.6 % (0.0-2.0); HEMATOCRIT 33 % (33-45); HEMOGLOBIN 10.8 g/dL (11.5-14.8); LYMPHOCYTES # (AUTO) 1.4 /CMM (0.8-4.8); LYMPHOCYTES % (AUTO) 30.2 % (20.0-44.0); MEAN CORPUSCULAR HGB CONC 33 g/dl (31.0-36.0); MEAN CORPUSCULAR VOLUME 96 fL (82-100); MONOCYTES # (AUTO) 0.5 /CMM (0.1-1.30); MONOCYTES % (AUTO) 9.6 % (2.0-12.0); NEUTROPHILS # (AUTO) 2.7 /CMM (1.8-8.9); NEUTROPHILS % (AUTO) 56.6 % (43.0-81.0); PLATELET COUNT (AUTO) 285 /CMM (150-450); RED BLOOD CELL COUNT(AUTO) 3.42 MIL/uL (4.0-5.2); WHITE BLOOD COUNT (AUTO) 4.7 K/uL (4.3-11.0)
[2018-08-22 08:00] VITALS: BP 98/59
[2018-08-22] MEDS ORDERED: REGADENOSON 0.4 MG/5 ML DISP.SYRIN IVP ONE (08:30)
[2018-08-22 08:33] LABS: CALCIUM, SERUM 8.5 mg/dL (8.5-10.1); POTASSIUM 4.2 mmol/L (3.5-5.1)
--- NOTE | 2018-08-22 08:35 | NUR ---
ade rn note received patient in bed , alert ovidio mills to go to stress test. alexey from nuclear at bedside .patient alert ,oriented x3 speaks farsy , on tele monitor afib hr 71 , rt fa hl intact bed in lowest and locked position , assisted to br, able to urinae well ,will cont to Monitor closely, on 3l nc no sob noted at this time
--- NOTE | 2018-08-22 09:30 | NUR ---
CAREGIVERS NON MEDICAL NOTES BACK FROM NUCLEAR TEST, OKAY TO START TO EAT, ASSIST TO BR, ABLE TO URINATE AND MAKE BM, KEEP CLEAN AND DRY, CALL LIGHT WITHIN REACH, CALLED PHARMACIST FOR VANCO LEVEL WILL BE ORDERED PRIOR TO GIVING VANCOMYCIN.
[2018-08-22] MEDS: CLOPIDOGREL BISULFATE 75 MG TABLET PO SCH (09:58)
[2018-08-22] MEDS: FOLIC ACID 1 MG TABLET PO SCH (09:58)
[2018-08-22] MEDS: RIVAROXABAN 15 MG TABLET PO SCH (09:59)
[2018-08-22] MEDS: LACTOBACILLUS RHAMNOSUS GG 1 EACH CAP.SPRINK PO SCH ×2 (09:59→16:23)
[2018-08-22] MEDS: ISOSORBIDE MONONITRATE (30MG) 30 MG TAB.SR.24H PO SCH (09:59)
[2018-08-22] MEDS: CHOLECALCIFEROL 1,000 UNIT TABLET (VIT D3) PO SCH (10:00)
--- NOTE | 2018-08-22 10:51 | NUR ---
WAX BLEACHER NOTES TAKEN TO NUCLEAR TEST PART 2, CLARIFIED WITH DR CAMPBELL METOPROLOL 25MG Q6HR, DR CAMPBELL AWARE OF CTA, NOTIFIED OF PT CHEST PAIN, ORDERED NITROGLYCERIN SL PRN, WILL FOLLOW UP.
[2018-08-22] MEDS ORDERED: NITROGLYCERIN 0.4 MG/TAB BOTTLE SL PRN (11:00)
--- NOTE | 2018-08-22 11:25 | NUR ---
CHARGE NOTES TRANSFER TO MED SURG PER DR. CAMPBELL
[2018-08-22] MEDS: VANCOMYCIN 0.75 GM in IV D5W 250 ML IV SCH (11:35)
--- NOTE | 2018-08-22 11:46 | NUR ---
MS RN NOTES PT COMPLAINED IN THE CHEST AREA, PAIN 9/10, PT PREFERRED TO HAVE DILAUDID SHOT, GIVEN ORDERED, BP IS 104/71, O2 SAT 97%, HR 75.
[2018-08-22 12:00] VITALS: BP 104/71
--- NOTE | 2018-08-22 15:24 | NUR ---
MS RN NOTE SEN BY MARY FUENTES UTILITY PERSON WITH POSSIBLE TO DISCHARGE TO SNF , ALSO AWARE STRESS TEST NEGATIVE
--- NOTE | 2018-08-22 15:30 | NUR ---
NBA RN NOTES NOTIFIED PT POSSIBLE DISCHARGE
[2018-08-22 16:00] VITALS: BP 98/59
[2018-08-22 18:00] VITALS: BP 98/59
--- NOTE | 2018-08-22 18:00 | NUR ---
MS RN NOTES SPOKE WITH DAUGHTER HARSH, NOTIFIED THAT PT WILL BE DISCHARGED TO [facility], REPORT GIVEN TO GRETTA FOR GALO, CALLED MARY RN GROUP FITNESS DEPARTMENT HEAD FOR 5 MORE DAYS PO
--- NOTE | 2018-08-22 18:49 | NUR ---
MS RN NOTE AMBULANCES ARRIVED, REPORT GIVEN, HL REMOVED , WENT TO SNF WITH STABLE CONDITION , BEACONING SIGNED
[2018-08-23] MEDS ORDERED: LEVO750T21 PO (13:41)
== END 2018-08-22 18:45 | DRG 177 ==
LOC: ER 17:27 → TELE1 20:59 → MEDSG1 08-22 11:05
PROVIDERS: ADMIT Nurse Practitioner Acute Care; ATTEND Nurse Practitioner Acute Care
DX: J15.6 Pneumonia due to other Gram-negative bacteria (principal); I21.A1 Myocardial infarction type 2; I50.23 Acute on chronic systolic (congestive) heart failure; E44.1 Mild protein-calorie malnutrition; E87.2 Acidosis; J98.11 Atelectasis; I11.0 Hypertensive heart disease with heart failure; J15.9 Unspecified bacterial pneumonia; E78.5 Hyperlipidemia, unspecified; E66.9 Obesity, unspecified; I25.10 Atherosclerotic heart disease of native coronary artery without angina pectoris; I48.2 Chronic atrial fibrillation; Z86.73 Personal history of transient ischemic attack (TIA), and cerebral infarction without residual deficits; Z87.442 Personal history of urinary calculi; Z98.84 Bariatric surgery status; Z95.0 Presence of cardiac pacemaker; M19.90 Unspecified osteoarthritis, unspecified site; Z68.35 Body mass index [BMI] 35.0-35.9, adult; R74.0 Nonspecific elevation of levels of transaminase and lactic acid dehydrogenase [LDH]; R07.81 Pleurodynia; E88.09 Other disorders of plasma-protein metabolism, not elsewhere classified; N28.1 Cyst of kidney, acquired; R93.5 Abnormal findings on diagnostic imaging of other abdominal regions, including retroperitoneum; I25.2 Old myocardial infarction; M43.16 Spondylolisthesis, lumbar region; Z79.01 Long term (current) use of anticoagulants; Z79.82 Long term (current) use of aspirin
CPT/HCPCS: 36415; 71045-TC; 74178; 75574; 76705-TC; 80048-TC; 80061-TC; 80076-TC; 80202-TC; 83605-TC; 83735-TC; 83880; 84100-TC; 84443-TC; 84484-TC; 85025-TC; 85730-TC; 87040-TC; 87070-TC; 87081-TC; 87086-TC; A4216; A9502; G0378; J1160; J1170; J1940; J1956; J2270; J2405; J2543; J2785; J2930; J3370; J3490; J7030; J7040; J7050; J7060; J7120; Q9967

== ENCOUNTER 2018-09-15 11:58 | Outpatient (CLI) | payer MEDICARE, MEDICAID ==
[~2018-09-15 11:58] MED LIST changes: -ASPI-1169 PO; +BUME1TAB4 PO; +CHOL200026 PO; -ERGO400T7 PO; +ESOM40CA PO; -FURO40TA5 PO; -ISOS30TA9 PO; -LEVO500T75 PO; +LEVO750T21 PO; -PANT40TA4 PO
== END 2018-09-15 23:59 | disposition home or self-care (01) ==
LOC: RAD 11:58
DX: I51.7 Cardiomegaly (principal); I70.0 Atherosclerosis of aorta; Z95.0 Presence of cardiac pacemaker
CPT/HCPCS: 71046

== ENCOUNTER 2018-09-28 10:07 | Outpatient (CLI) | payer MEDICARE, MEDICAID ==
[2018-09-28 11:04] LABS: CALCIUM, SERUM 9.4 mg/dL (8.5-10.1); POTASSIUM 4.2 mmol/L (3.5-5.1)
[2018-09-28] MEDS ORDERED: CT SWABBABLE VALVE TRANS SET 1 EA INFUS.SET MC ONE (11:50)
[2018-09-28] MEDS ORDERED: IOHEXOL-300 100 ML VIAL IV ONE (11:50)
[2018-09-28] MEDS ORDERED: IV NS 0.9% 250 ML IV ONE (11:50)
== END 2018-09-28 23:59 | disposition home or self-care (01) ==
LOC: CT 10:07
DX: Z48.817 Encounter for surgical aftercare following surgery on the skin and subcutaneous tissue (principal); N28.1 Cyst of kidney, acquired; I70.0 Atherosclerosis of aorta; M47.816 Spondylosis without myelopathy or radiculopathy, lumbar region; Z90.49 Acquired absence of other specified parts of digestive tract
CPT/HCPCS: 36415; 74177; 80048; J7050; Q9967

== ENCOUNTER 2018-11-28 20:50 | Emergency (ER) | payer MEDICARE, MEDICAID ==
[~2018-11-28] VITALS: Ht 167.6 cm; Wt 91.2 kg
--- NOTE | 2018-11-28 21:30 | NUR ---
BIB SON. A, OX4. BREATHING EVENLY. NO SOB. NAD. SKIN WARM AND DRY. REPORTED S/P DRAINGAGE PLACEMENT ON THE LLQ ON 11/10/18 FOR HX OF LYPOSUCTION? AND HAS INCREASED PAIN ON THE DRAINAGE SITE. NO LEAKAGE ON THE SITE NOTED. DRAINING SEROSANGUINEOUS FLUID. VSS. WILL CONT TO MONITOR .
--- NOTE | 2018-11-28 21:55 | NUR ---
PROBE OPERATOR AT THE BED SIDE TO DRAW BLOOD
[2018-11-28 22:05] LABS: BASOPHILS % (AUTO) 0.7 % (0.0-2.0); EOSINOPHILS % (AUTO) 3.3 % (0.0-6.0); HEMATOCRIT 38 % (33-45); HEMOGLOBIN 12.5 g/dL (11.5-14.8); LYMPHOCYTES # (AUTO) 1.5 /CMM (0.8-4.8); MEAN CORPUSCULAR HGB CONC 33 g/dl (31.0-36.0); MEAN CORPUSCULAR VOLUME 95 fL (82-100); MONOCYTES # (AUTO) 0.5 /CMM (0.1-1.30); MONOCYTES % (AUTO) 10.5 % (2.0-12.0); NEUTROPHILS # (AUTO) 2.1 /CMM (1.8-8.9); NEUTROPHILS % (AUTO) 49.5 % (43.0-81.0); PLATELET COUNT (AUTO) 199 /CMM (150-450); RED BLOOD CELL COUNT(AUTO) 4.03 MIL/uL (4.0-5.2); WHITE BLOOD COUNT (AUTO) 4.3 K/uL (4.3-11.0)
--- NOTE | 2018-11-28 22:05 | NUR ---
at the bed side
[2018-11-28 22:12] LABS: CALCIUM, SERUM 9.1 mg/dL (8.5-10.1); CREATININE 1.3 mg/dL (0.6-1.3); POTASSIUM 3.8 mmol/L (3.5-5.1)
[2018-11-28 22:17] LABS: ALBUMIN 3.3 g/dL (3.4-5.0); BILIRUBIN,DIRECT 0.1 mg/dL (0.0-0.2); BILIRUBIN,TOTAL 0.3 mg/dL (0.2-1.0)
--- NOTE | 2018-11-28 22:40 | NUR ---
LEFT FOR CT
[2018-11-28 22:43] LABS: APPEARANCE,URINE Clear (CLEAR); BILIRUBIN,URINE Negative (NEGATIVE); BLOOD, URINE Trace-intact Ery/uL (NEGATIVE); COLOR,URINE Yellow (YELLOW); KETONES,URINE Negative (NEGATIVE); LEUKOCYTE ESTERASE ,URINE Negative (NEGATIVE); NITRITE, URINE Negative (NEGATIVE); PH,URINE 6.5 (5.0-8.0); PROTEIN,URINE Negative (NEGATIVE); UGLUCOSE Negative (NEGATIVE); UROBILINOGEN,URINE 0.2 EU/dL (0.2)
[2018-11-28 22:59] LABS: BACTERIA,URINE None seen /HPF (None Seen); RBC,URINE 0-2 /HPF (0-2); SQUAMOUS EPITHELIAL CELL,UR Few /HPF (None Seen); WBC,URINE 0-2 /HPF (0-3)
--- NOTE | 2018-11-28 23:00 | NUR ---
BACK FROM CT IN STABLE CONDITION
--- NOTE | 2018-11-29 01:56 | NUR ---
Patient discharged to home in stable condition. Written and verbal after care instructions with a copy of the labs , ct scan and the actual ct disc given to the pt. Patient verbalizes understanding of instruction.
[2018-11-29 01:58] VITALS: BP 138/87
== END 2018-11-29 02:14 | disposition home or self-care (01) ==
LOC: ER 20:53
DX: R10.30 Lower abdominal pain, unspecified (principal); I10 Essential (primary) hypertension; I48.91 Unspecified atrial fibrillation; E78.5 Hyperlipidemia, unspecified; E66.9 Obesity, unspecified; Z86.73 Personal history of transient ischemic attack (TIA), and cerebral infarction without residual deficits; Z87.442 Personal history of urinary calculi; Z98.84 Bariatric surgery status
CPT/HCPCS: 36415; 80048-TC; 80076-TC; 81000-TC; 83690-TC; 85025-TC

== ENCOUNTER 2019-04-23 02:00 | Inpatient (IN) | payer MEDICARE, MEDICAID ==
[~2019-04-23] VITALS: Ht 157.5 cm; Wt 93.0 kg
[~2019-04-23 02:00] MED LIST changes: -BUME1TAB4 PO; +BUME1TAB8 PO
[2019-04-23] MEDS ORDERED: PIPERACILLIN /TAZOBACTAM 3.375 G VIAL IV ONE (02:44)
[2019-04-23] MEDS ORDERED: VANCOMYCIN 1 GM VIAL ONE (02:44)
[2019-04-23] MEDS ORDERED: ACETAMINOPHEN ES 500 MG TABLET ONE (02:45)
[2019-04-23] MEDS ORDERED: PIPERACILLIN /TAZOBACTAM 3.375 G in IV D5W 50 ML IV ONE (03:00)
[2019-04-23] MEDS ORDERED: ACETAMINOPHEN ES 500 MG TABLET PO ONE (03:00)
[2019-04-23] MEDS ORDERED: VANCOMYCIN 1 GM in IV D5W 250 ML IV ONE (03:00)
--- NOTE | 2019-04-23 03:00 | NUR ---
PT BIB SON, C/O OF FEVER X2 HRS
[2019-04-23 03:15] LABS: BASOPHILS % (AUTO) 0.2 % (0.0-2.0); EOSINOPHILS % (AUTO) 0.6 % (0.0-6.0); HEMATOCRIT 37 % (33-45); HEMOGLOBIN 12.2 g/dL (11.5-14.8); LYMPHOCYTES # (AUTO) 0.5 /CMM (0.8-4.8); LYMPHOCYTES % (AUTO) 6.6 % (20.0-44.0); MEAN CORPUSCULAR HGB CONC 33 g/dl (31.0-36.0); MEAN CORPUSCULAR VOLUME 100 fL (82-100); MONOCYTES # (AUTO) 0.3 /CMM (0.1-1.30); MONOCYTES % (AUTO) 4.9 % (2.0-12.0); NEUTROPHILS # (AUTO) 6.2 /CMM (1.8-8.9); NEUTROPHILS % (AUTO) 87.7 % (43.0-81.0); PLATELET COUNT (AUTO) 242 /CMM (150-450); RED BLOOD CELL COUNT(AUTO) 3.73 MIL/uL (4.0-5.2)
[2019-04-23 03:26] LABS: CALCIUM, SERUM 9.4 mg/dL (8.5-10.1); CARBON DIOXIDE 27 mmol/L (21-32); CHLORIDE 101 mmol/L (98-107); CREATININE 1.1 mg/dL (0.6-1.3); GLUCOSE 109 mg/dL (74-106); POTASSIUM 4.1 mmol/L (3.5-5.1); SODIUM SERUM 138 mmol/L (136-145); UREA NITROGEN, BLOOD 20 mg/dL (7-18)
[2019-04-23 03:40] LABS: ALANINE AMINOTRANSFERASE 14 U/L (12-78); ALBUMIN 3.9 g/dL (3.4-5.0); ALKALINE PHOSPHATASE 169 U/L (46-116); ASPARTATE AMINOTRANSFERASE 16 U/L (15-37); B-TYPE NATRIURETIC PEPTIDE 2859 PG/ML (0-125); BILIRUBIN,DIRECT 0.4 mg/dL (0.0-0.2); BILIRUBIN,TOTAL 0.9 mg/dL (0.2-1.0); TOTAL PROTEIN, SERUM 7.8 g/dL (6.4-8.2)
[2019-04-23 04:46] LABS: APPEARANCE,URINE CLEAR (CLEAR); BILIRUBIN,URINE NEGATIVE (NEGATIVE); BLOOD, URINE TRACE Ery/uL (NEGATIVE); COLOR,URINE YELLOW (YELLOW); KETONES,URINE NEGATIVE (NEGATIVE); LEUKOCYTE ESTERASE ,URINE NEGATIVE (NEGATIVE); NITRITE, URINE NEGATIVE (NEGATIVE); PH,URINE 6.5 (5.0-8.0); PROTEIN,URINE NEGATIVE (NEGATIVE); UGLUCOSE NEGATIVE (NEGATIVE)
[2019-04-23] MEDS ORDERED: DILTIAZEM HCL 50 MG IV ONE (04:48)
--- NOTE | 2019-04-23 04:56 | NUR ---
PT ASSIGNED TO ROOM 107
[2019-04-23] MEDS ORDERED: DILTIAZEM HCL 50 MG IV IV ONE (05:00)
[2019-04-23 05:26] LABS: BACTERIA,URINE Few /HPF (None Seen); SQUAMOUS EPITHELIAL CELL,UR Few /HPF (None Seen); WBC,URINE 0-2 /HPF (0-3)
[2019-04-23 06:00] VITALS: BP 122/66
[2019-04-23] MEDS ORDERED: ONDANSETRON HCL/PF 4 MG/2 ML VIAL IVP PRN (06:00)
[2019-04-23] MEDS ORDERED: ALBUTEROL SULFATE INH 18 GM HFA.AER.AD IH PRN (06:00)
[2019-04-23] MEDS ORDERED: Z GUARD REMEDY 2 OZ OINT TP PRN (06:00)
[2019-04-23] MEDS ORDERED: MAG HYDROX/AL HYDROX/SIMETH 30 ML UDC PO PRN (06:00)
[2019-04-23] MEDS ORDERED: ACETAMINOPHEN 325 MG TABLET PO PRN (06:00)
[2019-04-23] MEDS ORDERED: MAGNESIUM HYDROXIDE 30 ML UDC PO PRN (06:00)
--- NOTE | 2019-04-23 06:00 | NUR ---
SPOOLING SUPERVISOR OPENING NOTE, RECEIVED PATIENT FROM ER AT 0600. PATIENT A/O X4. PATIENT WAS ABLE TO MOVE HERSELF TO THE BED FROM [facility]. SHE IS AMBULATORY AND USES WALKER AT HOME. PATIENT HAS NO FEVER AT THIS MOMENT. IV ACCES LFA #22, FLUSHING AND PATENT, NO S/S OF INFILTRATION. PATIENT ON TELE MONITOR AFIB 95. PATIENT IS ON 3 L O2, TOLERATING WELL, NO SOB NOTED AT THIS TIME. PATIENT HAS NO COMPLAIN OF PAIN. ALL SAFETY MEASURES IN PLACE, BED LOCKED/LOW. CALL LIGHT WITHIN REACH. WILL CONTINUE TO MONITOR.
--- NOTE | 2019-04-23 06:09 | NUR ---
PT TRANSPORTED TO 107 VIA ACLS PROTOCOL
[2019-04-23] MEDS ORDERED: ALBUTEROL FS 2.5 MG/0.5 ML VIAL.NEB NEB PRN ×2 (06:30→09:30)
--- NOTE | 2019-04-23 07:22 | NUR ---
BODY STRAIGHTENER CLOSING NOTE, PATIENT IN BED SLEEPING PEACEFULLY. A/O X4. PATIENT IS AMBULATORY AND USES WALKER AT HOME. PATIENT HAS NO FEVER AT THIS MOMENT. IV ACCES LFA #22, FLUSHING AND PATENT, NO S/S OF INFILTRATION. PATIENT ON TELE MONITOR AFIB 95. PATIENT IS ON 3 L O2, TOLERATING WELL, NO SOB NOTED AT THIS TIME. PATIENT HAS NO COMPLAIN OF PAIN. ALL SAFETY MEASURES IN PLACE, BED LOCKED/LOW. CALL LIGHT WITHIN REACH. WILL ENDORSE THE PATIENT TO AM RN FOR GALO.
[2019-04-23 08:00] VITALS: BP 121/79
--- NOTE | 2019-04-23 08:00 | NUR ---
rn note pt aox3, co pain in Right knee (previous total knee replacement 2 weeks ago), looks swollen and hot to touch, no discharge, stri strips on, no dressing. pt took a bite of omelette this am and had episode of vomiting. will keep her npo and give zofran iv. will notify .
[2019-04-23] MEDS: PIPERACILLIN /TAZOBACTAM 3.375 G in IV D5W 100 ML IV SCH ×2 (08:38→17:36)
[2019-04-23] MEDS ORDERED: ISOSORBIDE MONONITRATE 60 MG TAB.SR.24H PO SCH (09:00)
[2019-04-23] MEDS ORDERED: METOPROLOL TARTRATE 25 MG TABLET PO SCH (09:00)
[2019-04-23] MEDS: ISOSORBIDE MONONITRATE (30MG) 30 MG TAB.SR.24H PO SCH (11:17)
[2019-04-23] MEDS: BUMETANIDE (1 MG) 1 MG TABLET PO SCH ×2 (11:18→17:36)
[2019-04-23] MEDS: METOPROLOL TARTRATE 25 MG TABLET PO SCH ×2 (11:18→17:36)
[2019-04-23] MEDS: CLOPIDOGREL BISULFATE 75 MG TABLET PO SCH (11:19)
[2019-04-23] MEDS: FOLIC ACID 1 MG TABLET PO SCH (11:19)
[2019-04-23] MEDS: RIVAROXABAN 10 MG TABLET PO SCH (11:22)
[2019-04-23 12:00] VITALS: BP_SYST 115; BP_SYST 123; BP_DIAS 71; BP_DIAS 84
[2019-04-23] MEDS ORDERED: PIPERACILLIN /TAZOBACTAM 4.5 G in IV D5W 50 ML IV SCH (12:00)
[2019-04-23] MEDS: HYDROCODONE/APAP 5/325MG 1 EACH TABLET PO PRN (13:06)
[2019-04-23 16:00] VITALS: BP 119/53
--- NOTE | 2019-04-23 16:16 | NUR ---
RN NOTE PAGED BRYANT MONK CONSULT REQUESTED BY DR JOSEPH, REGARDING PT'S RECENT TKA AND NOW PAIN AND SWELLING, REDNESS AND HOT TO TOUCH. NO RESPONSE YET.
--- NOTE | 2019-04-23 16:30 | NUR ---
RN NOTE SPOKE WITH ALEX CUENCA HE ORDERS CRP AND ESR LAB CHECK, TO CONSULT ID DOCTOR, AND TO CONTACT ORTHO SURGEON , LEVI MATTA IN [place]. WILL COORDINATE WITH DR JOSEPH AND FOLLOW THROUGH.
--- NOTE | 2019-04-23 16:48 | NUR ---
RN NOTE SPOKE WITH LEVI MATTA'S OFFICE WITH ANSWERING PERSON NAMED SANG, (PHONE [phone]), SHE WILL RELAY MESSAGE TO DR RIVERA, SHE MENTIONED WITH POSSIBLE TRANSFER TO [facility] IN [place]. AWAITING HIS CALL BACK. WILL NOTIFY DR JOSEPH.
--- NOTE | 2019-04-23 17:00 | NUR ---
RN NOTE SPOKE WITH DR RIVERA OVER THE PHONE, HE INQUIRED INFORMATION REGARDING THE PT, AND SAID TO TREAT HER AT [facility] AND ONCE DISCHARGED HOME TO REMIND PT FOLLOW UP WITH HIM. DR JOSEPH NOTIFIED.
[2019-04-23] MEDS ORDERED: FEE PK DOSING 1 MIN EA MC ONE (18:19)
--- NOTE | 2019-04-23 19:20 | NUR ---
ELECTRICAL EQUIPMENT TESTER OPENING NOTES PATIENT IN BED, SLEEPING BUT EASY TO AROUSE. APPEARS TO BE DROWSY. A/OX3, PER REPORT PATIENT IS FARSI SPEAKING, ABLE TO MAKE NEEDS KNOWN. DENIES ANY PAIN AT THE MOMENT. IV ACCES LFA #20, FLUSHING AND PATENT, NO S/S OF INFILTRATION. PATIENT ON TELE MONITOR WITH CONTROLLED AFIB WITH HR 80'S. PATIENT ON ROOM AIR, TOLERATING WELL, NO SOB OR RESPIRATORY DISTRESS NOTED, SATURATING 97%. SAFETY MEASURES IN PLACE; BED LOCKED AND IN LOWEST POSITION, SIDE RAILS UP X2, CALL LIGHT WITHIN REACH AND INSTRUCTED PT TO CALL FOR HELP. WILL CONT TO MONITOR PT.
[2019-04-23 20:00] VITALS: BP_SYST 104; BP_SYST 110; BP_DIAS 58; BP_DIAS 61
[2019-04-23] MEDS: VANCOMYCIN 1 GM in IV D5W 250 ML IV SCH ×2 (20:11→22:14)
--- NOTE | 2019-04-23 22:40 | NUR ---
FORENSIC SCIENTIST NOTES ADMINISTERED PATIENT'S VANCO LATE D/T PATIENT HAVING ONLY ONE LINE. TRIED TO PUT AN IV MULTIPLE TIMES BUT PATIENT HARD STICK. PAGED MD REGARDING PROBLEM AND STATED OKAY TO PUT MIDLINE VIA PHONE CALL ORDER. EMS DIRECTOR AWARE. WILL ATTEND TO MD ORDERS.
[2019-04-23] MEDS ORDERED: VANCOMYCIN 1.25 GM in IV D5W 500 ML IV SCH (23:00)
[2019-04-24] VITALS: BP_SYST 104; BP_SYST 110; BP_DIAS 58; BP_DIAS 61
[2019-04-24] MEDS: PIPERACILLIN /TAZOBACTAM 3.375 G in IV D5W 100 ML IV SCH ×3 (01:52→16:23)
[2019-04-24] MEDS: HYDROCODONE/APAP 5/325MG 1 EACH TABLET PO PRN ×3 (02:04→21:34)
[2019-04-24 04:00] VITALS: BP 94/57
[2019-04-24 06:41] LABS: ALBUMIN 2.9 g/dL (3.4-5.0); BILIRUBIN,TOTAL 0.7 mg/dL (0.2-1.0); CALCIUM, SERUM 8.4 mg/dL (8.5-10.1); CREATININE 1.2 mg/dL (0.6-1.3); PHOSPHORUS 3.1 mg/dL (2.5-4.9); POTASSIUM 3.6 mmol/L (3.5-5.1); TOTAL PROTEIN, SERUM 6.3 g/dL (6.4-8.2)
[2019-04-24 06:44] LABS: BASOPHILS % (AUTO) 0.2 % (0.0-2.0); EOSINOPHILS % (AUTO) 3.4 % (0.0-6.0); HEMATOCRIT 30 % (33-45); HEMOGLOBIN 10.1 g/dL (11.5-14.8); LYMPHOCYTES % (AUTO) 14.1 % (20.0-44.0); MEAN CORPUSCULAR HGB CONC 33 g/dl (31.0-36.0); MEAN CORPUSCULAR VOLUME 100 fL (82-100); MONOCYTES # (AUTO) 0.5 /CMM (0.1-1.30); MONOCYTES % (AUTO) 7.2 % (2.0-12.0); NEUTROPHILS # (AUTO) 5.5 /CMM (1.8-8.9); NEUTROPHILS % (AUTO) 75.1 % (43.0-81.0); PLATELET COUNT (AUTO) 191 /CMM (150-450); RED BLOOD CELL COUNT(AUTO) 3.04 MIL/uL (4.0-5.2); WHITE BLOOD COUNT (AUTO) 7.4 K/uL (4.3-11.0)
--- NOTE | 2019-04-24 07:00 | NUR ---
TAIL WORKER CLOSING NOTES PATIENT IN BED, SLEEPING BUT EASY TO AROUSE, A/OX3, FARSI SPEAKING, ABLE TO MAKE NEEDS KNOWN. Q1H O2SAT MONITORING DONE LAST NIGHT PER MD ORDER; PLACED ON CHART. DENIES ANY PAIN AT THE MOMENT. IV ACCESS LFA #20 AND RENETTA MIDLINE, BOTH FLUSHING AND PATENT, SITES C/D/I; NO S/S OF INFILTRATION. PATIENT ON TELE MONITOR WITH CONTROLLED AFIB WITH HR 80'S. PATIENT ON ROOM AIR, TOLERATING WELL, NO SOB OR RESPIRATORY DISTRESS NOTED, SATURATING 97%. SAFETY MEASURES IN PLACE; BED LOCKED AND IN LOWEST POSITION, SIDE RAILS UP X2, CALL LIGHT WITHIN REACH. ENDORSED TO AM RN FOR GALO.
--- NOTE | 2019-04-24 07:20 | NUR ---
TELE/RN OPENING NOTES PATIENT IN BED SLEEPING COMFORTABLY. EASILY AROUSABLE. PATIENT IS ALERT AND ORIENTED X3 NO PAIN OR ACUTE DISTRESS AT THIS TIME. RESPIRATION EVEN AND UNLABORED. SKIN IS DRY WARM TO TOUCH. PATIENT ON RA. TOLERATING WELL. PATIENT ON TELE MONITORING HR ON THE 80'S. NOTED WITH RENETTA MIDLINE #18G. INTACT AND PATENT. FLUSHING WELL. NO S/S OF INFECTION OR INFILTRATION. ALL NEEDS ANTICIPATED. CALL LIGHT WITHIN REACHED. BED LOCKED AND IN LOWEST POSITION. SAFETY MAINTAINED. PLAN OF CARE DISCUSSED. WILL CONTINUE TO MONITOR CLOSELY.
[2019-04-24 08:00] VITALS: BP 120/71
[2019-04-24] MEDS: VANCOMYCIN 0.75 GM in IV D5W 250 ML IV SCH ×2 (08:13→19:50)
[2019-04-24] MEDS: CLOPIDOGREL BISULFATE 75 MG TABLET PO SCH (08:14)
[2019-04-24] MEDS: ISOSORBIDE MONONITRATE (30MG) 30 MG TAB.SR.24H PO SCH (08:14)
[2019-04-24] MEDS: BUMETANIDE (1 MG) 1 MG TABLET PO SCH ×2 (08:15→16:22)
[2019-04-24] MEDS: FOLIC ACID 1 MG TABLET PO SCH (08:15)
[2019-04-24] MEDS: METOPROLOL TARTRATE 25 MG TABLET PO SCH ×2 (08:15→16:23)
[2019-04-24] MEDS: RIVAROXABAN 10 MG TABLET PO SCH (08:16)
[2019-04-24] MEDS: ATORVASTATIN 10 MG TABLET PO SCH (08:19)
[2019-04-24 09:52] LABS: ABG BASE EXCESS 2.3 mmol/L; ABG PCO2 48.1 mmHg (35.0-45.0); ABG PH 7.382 (7.350-7.450); ABG PO2 72.5 mmHg (75.0-100.0); AaDO2 19.6 mmHg; COHb 0.6 % (0.5-1.5); MetHb 0.5 % (0.0-1.5); SITE, ABG Right Radial; VENT MODE, BG R/A
--- NOTE | 2019-04-24 10:18 | NUR ---
TELE/RN NOTES INFORMED KIRIT CARMONA REGARDING THE ORTHO CONSULT PER DR. PHELAN.
[2019-04-24 12:00] VITALS: BP 105/62
[2019-04-24 16:00] VITALS: BP_SYST 109; BP_SYST 115; BP_DIAS 68; BP_DIAS 72
--- NOTE | 2019-04-24 18:41 | NUR ---
MS/RN CLOSING NOTES PATIENT CONTINUES TO REMAIN IN STABLE CONDITION THROUGHOUT THE SHIFT. PROVIDED COMFORT AND SAFETY. PATIENT ON RA. TOLERATING WELL. NOTED WITH RENETTA MIDLINE #18G. INTACT AND PATENT. FLUSHING WELL. NO S/S OF INFECTION OR INFILTRATION. PATIENT ABLE TO TOLERATE MEALS AND MEDS WELL. NO ADVERSE REACTIONS AT THIS TIME. ALL NEEDS ANTICIPATED. CALL LIGHT WITHIN REACHED. BED LOCKED AND IN LOWEST POSITION. SAFETY MAINTAINED. WILL CONTINUE TO MONITOR CLOSELY. ENDORSED TO PM SHIFT FOR GALO.
--- NOTE | 2019-04-24 19:30 | NUR ---
MS RN OPENING NOTE RECEIVED PATIENT A/O X4 WITH NO DISTRESS OR DISCOMFORT. PATIENT IS VERBAL BUT SPEAKS FARSI. PATIENT IS ON ROOM AIR WITH O2 OF 96%. PATIENT IS AMBULATORY. PATIENT HAS IV ACCESS ON THE LEFT FOREARM #20G WITH SIGNS OF INFILTRATION POSSIBLE D/C, AND A RENETTA MIDLINE S/L #18G. ALL SAFETY PRECAUTIONS ARE APPLIED. BED IS LOW, SIDE RAILS UP X2 AND CALL LIGHT IS WITHIN REACH. WILL CONTINUE TO MONITOR PATIENT.
[2019-04-24 20:00] VITALS: BP 112/72
[2019-04-25] MEDS: PIPERACILLIN /TAZOBACTAM 3.375 G in IV D5W 100 ML IV SCH ×3 (00:06→17:04)
[2019-04-25] MEDS: ZOLPIDEM TARTRATE 5 MG TABLET PO PRN ×2 (02:18→20:10)
[2019-04-25] MEDS: HYDROCODONE/APAP 5/325MG 1 EACH TABLET PO PRN ×3 (02:19→20:10)
[2019-04-25 04:00] VITALS: BP 113/71
[2019-04-25 06:31] LABS: BASOPHILS % (AUTO) 0.4 % (0.0-2.0); EOSINOPHILS % (AUTO) 7.1 % (0.0-6.0); HEMATOCRIT 31 % (33-45); HEMOGLOBIN 10.3 g/dL (11.5-14.8); LYMPHOCYTES % (AUTO) 19.5 % (20.0-44.0); MEAN CORPUSCULAR HGB CONC 34 g/dl (31.0-36.0); MEAN CORPUSCULAR VOLUME 99 fL (82-100); MONOCYTES # (AUTO) 0.5 /CMM (0.1-1.30); MONOCYTES % (AUTO) 8.6 % (2.0-12.0); NEUTROPHILS # (AUTO) 3.4 /CMM (1.8-8.9); NEUTROPHILS % (AUTO) 64.4 % (43.0-81.0); PLATELET COUNT (AUTO) 199 /CMM (150-450); WHITE BLOOD COUNT (AUTO) 5.3 K/uL (4.3-11.0)
[2019-04-25 06:58] LABS: CALCIUM, SERUM 8.7 mg/dL (8.5-10.1); MAGNESIUM 2.3 mg/dL (1.8-2.4); PHOSPHORUS 3.5 mg/dL (2.5-4.9)
--- NOTE | 2019-04-25 07:10 | NUR ---
RN OPENING NOTES: RECEIVED PATIENT IN BED. A&OX4. FARSI-SPEAKING. NO SOB OR DISCOMFORT. NO C/O PAIN. RENETTA MIDLINE 18G INTACT. BED LOCKED AND IN LOW POSITION. CALL LIGHT WITHIN REACH. WILL CONT. TO MONITOR.
--- NOTE | 2019-04-25 07:30 | NUR ---
MS RN CLOSING NOTE PATIENT AWAKE AND ALERT WITH NO SIGN OF DISTRESS. ALL SAFETY PRECAUTIONS APPLIED. ENDORSED PATIENT TO MORNING NURSE.
[2019-04-25 08:00] VITALS: BP 125/75
[2019-04-25] MEDS: ISOSORBIDE MONONITRATE (30MG) 30 MG TAB.SR.24H PO SCH ×3 (08:20→12:04)
[2019-04-25] MEDS: BUMETANIDE (1 MG) 1 MG TABLET PO SCH ×4 (08:20→17:04)
[2019-04-25] MEDS: FOLIC ACID 1 MG TABLET PO SCH ×3 (08:20→12:02)
[2019-04-25] MEDS: CLOPIDOGREL BISULFATE 75 MG TABLET PO SCH ×3 (08:20→12:04)
[2019-04-25] MEDS: METOPROLOL TARTRATE 25 MG TABLET PO SCH ×4 (08:21→17:04)
[2019-04-25] MEDS: RIVAROXABAN 10 MG TABLET PO SCH ×3 (08:22→12:06)
[2019-04-25] MEDS: VANCOMYCIN 0.75 GM in IV D5W 250 ML IV SCH ×2 (08:22→20:10)
[2019-04-25] MEDS: ATORVASTATIN 10 MG TABLET PO SCH ×3 (08:22→12:02)
--- NOTE | 2019-04-25 08:30 | NUR ---
RN NOTE: PATIENT AGREED TO TAKE MEDS BUT THEN REFUSED AFTER OPENING. WILL TRY AGAIN LATER.
--- NOTE | 2019-04-25 09:10 | NUR ---
RN NOTE: TRIED ASKING PATIENT AGAIN TO TAKE MEDS. PATIENT STILL REFUSED. PATIENT IS A&OX4. DISCUSSED RISKS AND BENEFITS OF ALL HER MEDS. STILL REFUSED.
--- NOTE | 2019-04-25 09:45 | NUR ---
REPORT RECEIVED FOR CONTINUATION OF CARE.
--- NOTE | 2019-04-25 09:45 | NUR ---
RN NOTE REPORT GIVEN TO CHIVO FOR GALO
--- NOTE | 2019-04-25 11:55 | NUR ---
RN NOTE GINA WALDRON AT THIS TIME FOR THE PATIENT STATES THAT THE PATIENT CHANGED HER MIND AGAIN, SHE IS STATING SHE WANTS THE MEDICATIONS NOW. HAD TO UNDO ALL MEDS SO NURSE CAN PULL IT OUT FROM THE PYXIS
[2019-04-25] MEDS ORDERED: PIPE3.379 IV (12:17)
[2019-04-25] MEDS ORDERED: VANC750F IV (12:17)
--- NOTE | 2019-04-25 14:14 | NUR ---
SPOKE WITH DAUGHTER HARSH PER DAUGHTERS REQUEST TO USE [facility] FOR CONTINUATION OF ABX TX.
[2019-04-25 16:00] VITALS: BP 115/65
--- NOTE | 2019-04-25 18:46 | NUR ---
SPOKE TO DR. PHELAN ABOUT HOME HEALTH NURSE NOT BEING ABLE TO BE IN UNTIL 0800 TO CONTINUE ABX TX THEN. DR. PHELAN STATED THAT WAS FINE TO START HOME ABX AT 0800.
--- NOTE | 2019-04-25 19:06 | NUR ---
[facility] REQUESTING WE DO NOT DISCHARGE THEY ARE NOT ABLE TO GET THE MEDICATIONS IN TIME. SPOKE TO CHARGE NURSE MARIELY AND INFORMED HER OF PT NOT GOING.
--- NOTE | 2019-04-25 19:19 | NUR ---
RN CLOSING NOTES REPORT GIVEN TO BICYCLE SUBASSEMBLER RN FOR CONTINUATION OF CARE. ENDORSE CONTINUATION OF CARE TO BICYCLE SUBASSEMBLER RN.
[2019-04-25 20:00] VITALS: BP 109/68
--- NOTE | 2019-04-25 20:00 | NUR ---
RN INITIAL MS NOTE RECEIVED PATIENT A/O X4 WITH NO DISTRESS , C/O LT KNEE PAIN /, PRN NORCO TO BE GIVEN. PATIENT IS VERBAL BUT SPEAKS FARSI. PATIENT IS ON ROOM AIR WITH O2 OF 96%. PATIENT IS AMBULATORY. PATIENT HAS IV ACCESS ON THE LEFT FOREARM #20G WITH SIGNS OF INFILTRATION POSSIBLE D/C, AND A RENETTA MIDLINE S/L #18G. ALL SAFETY PRECAUTIONS ARE APPLIED. BED IS LOW, SIDE RAILS UP X2 AND CALL LIGHT IS WITHIN REACH. WILL CONTINUE TO MONITOR PATIENT.
[2019-04-26 00:12] VITALS: BP 109/68
[2019-04-26] MEDS: PIPERACILLIN /TAZOBACTAM 3.375 G in IV D5W 100 ML IV SCH ×2 (00:33→09:44)
[2019-04-26] MEDS: HYDROCODONE/APAP 5/325MG 1 EACH TABLET PO PRN ×2 (02:15→08:23)
[2019-04-26 04:00] VITALS: BP 114/70
--- NOTE | 2019-04-26 06:20 | NUR ---
RN CLOSING MS NOTE PATIENT A/O X4 WITH NO DISTRESS ,DENIES ANY PAIN, FARSI SPEAKING, ON ROOM AIR WITH O2 OF 96%. PATIENT IS AMBULATORY. PATIENT HAS IV ACCESS ON THE LEFT FOREARM #20G WITH SIGNS OF INFILTRATION POSSIBLE D/C, AND A RENETTA MIDLINE S/L #18G. ALL SAFETY PRECAUTIONS ARE APPLIED. BED IS LOW, SIDE RAILS UP X2 AND CALL LIGHT IS WITHIN REACH. WILL CONTINUE TO MONITOR PATIENT.
[2019-04-26 06:59] LABS: BASOPHILS % (AUTO) 0.6 % (0.0-2.0); EOSINOPHILS % (AUTO) 6.9 % (0.0-6.0); HEMATOCRIT 30 % (33-45); HEMOGLOBIN 9.9 g/dL (11.5-14.8); LYMPHOCYTES % (AUTO) 21.9 % (20.0-44.0); MEAN CORPUSCULAR HGB CONC 33 g/dl (31.0-36.0); MEAN CORPUSCULAR VOLUME 100 fL (82-100); MONOCYTES # (AUTO) 0.5 /CMM (0.1-1.30); MONOCYTES % (AUTO) 10.1 % (2.0-12.0); NEUTROPHILS # (AUTO) 2.7 /CMM (1.8-8.9); NEUTROPHILS % (AUTO) 60.5 % (43.0-81.0); PLATELET COUNT (AUTO) 216 /CMM (150-450); RED BLOOD CELL COUNT(AUTO) 3.03 MIL/uL (4.0-5.2); WHITE BLOOD COUNT (AUTO) 4.5 K/uL (4.3-11.0)
[2019-04-26 07:17] LABS: CALCIUM, SERUM 8.5 mg/dL (8.5-10.1); PHOSPHORUS 3.9 mg/dL (2.5-4.9); POTASSIUM 3.8 mmol/L (3.5-5.1)
--- NOTE | 2019-04-26 07:32 | NUR ---
MS RN NOTE PATIENT A/O X4 WITH NO DISTRESS ,DENIES ANY PAIN, FARSI SPEAKING, ON ROOM AIR NO SOB NOTED AT THIS TIME . RESTING COMFORTABLY . PATIENT HAS IV ACCESS ON THE AND A RENETTA MIDLINE S/L #18G. ALL SAFETY PRECAUTIONS ARE APPLIED. BED IS LOW, SIDE RAILS UP X2 AND CALL LIGHT IS WITHIN REACH. WILL CONTINUE TO MONITOR PATIENT.
[2019-04-26] MEDS: VANCOMYCIN 0.75 GM in IV D5W 250 ML IV SCH (07:56)
[2019-04-26 08:00] VITALS: BP 104/60
[2019-04-26] MEDS: RIVAROXABAN 10 MG TABLET PO SCH (08:24)
[2019-04-26 08:26] VITALS: BP 104/60
[2019-04-26] MEDS: BUMETANIDE (1 MG) 1 MG TABLET PO SCH (08:26)
[2019-04-26] MEDS: METOPROLOL TARTRATE 25 MG TABLET PO SCH (08:26)
[2019-04-26] MEDS: CLOPIDOGREL BISULFATE 75 MG TABLET PO SCH (08:26)
[2019-04-26] MEDS: ATORVASTATIN 10 MG TABLET PO SCH (08:26)
[2019-04-26] MEDS: ISOSORBIDE MONONITRATE (30MG) 30 MG TAB.SR.24H PO SCH (08:26)
[2019-04-26] MEDS: FOLIC ACID 1 MG TABLET PO SCH (08:26)
--- NOTE | 2019-04-26 10:00 | NUR ---
MS RN NOTE PER DR TODD OK TO DISCHARGE TODAY
--- NOTE | 2019-04-26 10:00 | NUR ---
ms boykin note spoke with adult protective caseworker lola, all iv atb arranged and spoke with nurse from home ,iv atb will be delivered soon Addendum: 04/26/19 at 1437 by SAMMIE QUEEN RN SPOKE WITH NURSE FROM HOME HEALTH , ATN WILL BE DELIVERED
--- NOTE | 2019-04-26 12:00 | NUR ---
ms rn note daughter at bedside patient eating lunch , will monitor
--- NOTE | 2019-04-26 13:11 | NUR ---
MS RN NOTE DISCHARGE INSTRUCTION GIVEN TO PATIENT AND DAUGHTER , EXPLAINED TO F\U WITH PRIMARY CARE DOCTOR AND ORTHOPEDIC DOCTOR , ALSO F\U WITH HOME HEALTH NURSE FOR FURTHER ADMINISTRATION OF IV ATB, PER DR ZHANE RUIZ TO LEAVE MID LINE ON RT UPPER ARM , RT UPPER ARM SITE FLUSHED WELL, NO S\S INFECTION NOTED UPON DISCHARGE ,INSTRUCTED DAUGHTER ABOUT HOME MEDS AND NEW PX ATB AND POSSIBLE SIDE EFFECTS , PLACED PATENT TO W\C , WENT TO LOBBY WITH DAUGHTER WITH STABLE CONDITION , BELONGING CHECKED
== END 2019-04-26 13:20 | disposition home health service (06) | DRG 559 ==
LOC: ER 02:03 → TELE1 05:00 → MEDSG1 04-24 12:23
PROVIDERS: ADMIT Internal Medicine; ATTEND Student in an Organized Health Care Education/Training Program
PROC: 05H533Z Insertion of Infusion Device into Right Subclavian Vein, Percutaneous Approach (ICD-10-PCS; principal; 2019-04-23)
DX: T84.53XA Infection and inflammatory reaction due to internal right knee prosthesis, initial encounter (principal); A41.9 Sepsis, unspecified organism; Z86.73 Personal history of transient ischemic attack (TIA), and cerebral infarction without residual deficits; Z79.01 Long term (current) use of anticoagulants; E78.5 Hyperlipidemia, unspecified; I25.10 Atherosclerotic heart disease of native coronary artery without angina pectoris; I11.0 Hypertensive heart disease with heart failure; I50.9 Heart failure, unspecified; E11.9 Type 2 diabetes mellitus without complications; E66.9 Obesity, unspecified; Z95.0 Presence of cardiac pacemaker; I25.2 Old myocardial infarction; Z87.442 Personal history of urinary calculi; Z96.653 Presence of artificial knee joint, bilateral; Z98.61 Coronary angioplasty status; Z98.84 Bariatric surgery status; Z68.37 Body mass index [BMI] 37.0-37.9, adult; G47.33 Obstructive sleep apnea (adult) (pediatric); Y83.8 Other surgical procedures as the cause of abnormal reaction of the patient, or of later complication, without mention of misadventure at the time of the procedure; Y92.009 Unspecified place in unspecified non-institutional (private) residence as the place of occurrence of the external cause; I48.91 Unspecified atrial fibrillation
CPT/HCPCS: 36415; 36600; 71045-TC; 76705-TC; 80048-TC; 80053-TC; 80061-TC; 80076-TC; 80202-TC; 81000-TC; 82803-TC; 82962-TC; 83605-TC; 83735-TC; 83880; 84100-TC; 84484-TC; 85025-TC; 85652-TC; 85730-TC; 86140-TC; 87040-TC; 87081-TC; 87086-TC; 93970-TC; 97116-TC; 97530-TC; G0378; J2405; J2543; J3370; J3490; J7030; J7060

== ENCOUNTER 2019-07-06 20:58 | Inpatient (IN) | payer MEDICARE, MEDICAID ==
[~2019-07-06] VITALS: Ht 152.4 cm; Wt 92.1 kg
[~2019-07-06 20:58] MED LIST changes: -LEVO750T21 PO; +PIPE3.379 IV; +VANC750F IV
--- NOTE | 2019-07-06 21:00 | NUR ---
PT ANDREW C/O SOB. CAME BACK FROM [place] 3 DAYS AGO. PT REPORT SOB BEFORE LEAVING [place]. PT AOX4. NON-CAMEROONIAN SPEAKING. NAD NOTED. RESP EVEN AND UNLABORED. PT ON MONITOR IN BED 2 WITH FAMILY AT BEDSIDE. WILL CONTINUE TO MONITOR.
[2019-07-06] MEDS ORDERED: ASPIRIN 325 MG TABLET PO ONE (21:30)
[2019-07-06] MEDS ORDERED: ALBUTEROL FS 2.5 MG/3 ML VIAL.NEB NEB ONE (21:30)
[2019-07-06] MEDS ORDERED: ASPIRIN 325 MG TABLET ONE (21:35)
--- NOTE | 2019-07-06 21:39 | NUR ---
BLOOD DRAWN AND GIVEN TO PHLEB
[2019-07-06 21:43] LABS: BASOPHILS % (AUTO) 0.5 % (0.0-2.0); HEMATOCRIT 42 % (33-45); HEMOGLOBIN 13.6 g/dL (11.5-14.8); MEAN CORPUSCULAR HGB CONC 33 g/dl (31.0-36.0); MEAN CORPUSCULAR VOLUME 99 fL (82-100); MONOCYTES # (AUTO) 0.5 /CMM (0.1-1.30); NEUTROPHILS % (AUTO) 64.5 % (43.0-81.0); PLATELET COUNT (AUTO) 177 /CMM (150-450); RED BLOOD CELL COUNT(AUTO) 4.26 MIL/uL (4.0-5.2); WHITE BLOOD COUNT (AUTO) 4.6 K/uL (4.3-11.0)
--- NOTE | 2019-07-06 21:44 | NUR ---
RADIOLOGY AT BEDSIDE FOR XRAY
[2019-07-06] MEDS ORDERED: ALBUTEROL FS 2.5 MG/3 ML VIAL.NEB ONE (21:52)
[2019-07-06 21:53] LABS: CALCIUM, SERUM 8.8 mg/dL (8.5-10.1); POTASSIUM 4.4 mmol/L (3.5-5.1)
--- NOTE | 2019-07-06 21:53 | NUR ---
RT AT BEDSIDE FOR BREATHING TREATMENT
[2019-07-06 22:06] LABS: ALBUMIN 3.4 g/dL (3.4-5.0); BILIRUBIN,DIRECT 0.2 mg/dL (0.0-0.2); BILIRUBIN,TOTAL 0.6 mg/dL (0.2-1.0); TOTAL PROTEIN, SERUM 6.8 g/dL (6.4-8.2)
[2019-07-06] MEDS ORDERED: IOHEXOL-350 100 ML VIAL IV ONE (22:41)
[2019-07-06] MEDS ORDERED: CT SWABBABLE VALVE TRANS SET 1 EA INFUS.SET MC ONE (22:41)
--- NOTE | 2019-07-06 22:56 | NUR ---
PT RETURNED FROM RADIOLOGY
[2019-07-06] MEDS ORDERED: FUROSEMIDE 40 MG/4 ML VIAL IV ONE (23:30)
--- NOTE | 2019-07-06 23:44 | NUR ---
CALLED RN SUP FOR TELE BED
[2019-07-07] VITALS (7 sets, daily range): BP systolic 102–145; BP diastolic 57–101
--- NOTE | 2019-07-07 00:01 | NUR ---
PT ASSIGNED TO [facility] [id number]
[2019-07-07] MEDS ORDERED: FUROSEMIDE 40 MG/4 ML VIAL ONE (00:20)
[2019-07-07] MEDS ORDERED: MAG HYDROX/AL HYDROX/SIMETH 30 ML UDC PO PRN (00:30)
[2019-07-07] MEDS ORDERED: NITROGLYCERIN 0.4 MG/TAB BOTTLE SL PRN (00:30)
[2019-07-07] MEDS ORDERED: ONDANSETRON HCL/PF 4 MG/2 ML VIAL IVP PRN (00:30)
--- NOTE | 2019-07-07 00:33 | NUR ---
REPORT GIVEN TO GINA GUO FOR GALO
--- NOTE | 2019-07-07 00:50 | NUR ---
SOLUTIONS ARCHITECT CONSULTANTLANDSCAPE ARCHITECT AND PLANNER NOTES PATIENT RECEIVED VIA GURNEY FROM ER ACCOMPANIED BY DAUGHTER AND ER NURSE. PATIENT IS A/Ox4, ONLY FARSI SPEAKING. NO SIGNS OF ACUTE DISTRESS, NO COMPLAINTS OF SOB, OR PAIN. PATIENT IS STABLE ON ROOM AIR. IV INTACT AND PATENT ON L FA #18. DAUGHTER WAS ABLE TO TRANSLATE EVERYTHING. PATIENT FEELS WEAK, SO AMBULATORY WITH ASSIST AND USE OF BED MATA. SAFETY PRECAUTIONS IN PLACE WITH BED IN LOWEST POSITION, BREAKS ON, SIDE RAILS UP x2, AND CALL LIGHT WITHIN REACH. ALL BELONGINGS WERE ACCOUNTED FOR, ID BAND PLACED, AND ALL CURRENT NEEDS MET. WILL CONTINUE TO MONITOR.
[2019-07-07] MEDS: AZITHROMYCIN 250 MG TABLET PO SCH ×2 (01:22→23:37)
[2019-07-07] MEDS ORDERED: ALBUTEROL SULFATE INH 18 GM HFA.AER.AD IH PRN (03:00)
--- NOTE | 2019-07-07 04:04 | NUR ---
PATIENT'S CONTACTS JAMIE (DAUGHTER) FRANCA (DAUGHTER) [phone]
--- NOTE | 2019-07-07 06:17 | NUR ---
ELECTROMECHANICAL TECHNICIAN CLOSING NOTES Patient is currently in bed resting, A/O x4 Farsi speaking only. No signs of acute distress, no SOB noted, and no current complaints of pain. Patient is stable on room air, breathing even. Patient is ambulatory with assist, use of bed mancera. IV located on left fore arm #18 SL. Safety precautions in place with bed in lowest position, side rails up x2, breaks on. All needs were attended to. Will endorse to oncoming shift about harper.
--- NOTE | 2019-07-07 07:10 | NUR ---
RESEARCH ANTHROPOLOGIST OPENING NOTES RECEIVED PATIENT IN BED, ALERT AND AWAKE. HOB ELEVATED. NO SOB OBSERVED. DENIES ANY C/O PAIN NOR DISCOMFORT AT THIS TIME. ON TELE MONITORING SR: 72. LEFT FA # 18 SL INTACT AND PATENT. BED IN LOWEST POSITION, LOCKED. ABLE TO MAKE NEEDS KNOWN. BED SIDE RAILS UPX2. CALL LIGHT WITHIN REACH.
[2019-07-07] MEDS: FUROSEMIDE 100 MG/10 ML VIAL IV SCH ×3 (08:16→15:18)
[2019-07-07] MEDS: FOLIC ACID 1 MG TABLET PO SCH (08:17)
[2019-07-07] MEDS: PANTOPRAZOLE 40 MG TABLET.DR PO SCH (08:17)
[2019-07-07] MEDS: CLOPIDOGREL BISULFATE 75 MG TABLET PO SCH (08:17)
[2019-07-07] MEDS: CHOLECALCIFEROL 1,000 UNIT TABLET (VIT D3) PO SCH (08:17)
[2019-07-07] MEDS: ASPIRIN 81 MG TAB.CHEW PO SCH (08:18)
[2019-07-07] MEDS: METOPROLOL TARTRATE 25 MG TABLET PO SCH (08:19)
--- NOTE | 2019-07-07 08:19 | NUR ---
FOOD AND DRUG RESEARCH SCIENTIST NOTES NOTED BP 160/96. AM MEDS GIVEN ORDERED
[2019-07-07] MEDS: RIVAROXABAN 10 MG TABLET PO SCH (08:40)
[2019-07-07] MEDS: ISOSORBIDE MONONITRATE (30MG) 30 MG TAB.SR.24H PO SCH (08:42)
[2019-07-07] MEDS ORDERED: BUMETANIDE (1 MG) 1 MG TABLET PO SCH (09:00)
[2019-07-07] MEDS ORDERED: Medication Not On Formulary EA (Atorvastatin Calcium (Lipitor) 1 TAB) PO SCH (09:00)
[2019-07-07] MEDS ORDERED: FUROSEMIDE 40 MG/4 ML VIAL IV SCH (09:00)
[2019-07-07] MEDS ORDERED: ISOSORBIDE MONONITRATE 60 MG TAB.SR.24H PO SCH (09:00)
--- NOTE | 2019-07-07 09:40 | NUR ---
BOTTOMING ROOM SUPERVISOR NOTES BP RECHECKED B/P 140/92
[2019-07-07] MEDS ORDERED: LIDOCAINE 5% (PATCH) 1 EA PATCH TP SCH (11:30)
[2019-07-07 11:37] LABS: BASOPHILS % (AUTO) 0.6 % (0.0-2.0); EOSINOPHILS % (AUTO) 4.7 % (0.0-6.0); HEMATOCRIT 42 % (33-45); LYMPHOCYTES # (AUTO) 0.9 /CMM (0.8-4.8); LYMPHOCYTES % (AUTO) 22.6 % (20.0-44.0); MEAN CORPUSCULAR HGB CONC 33 g/dl (31.0-36.0); MEAN CORPUSCULAR VOLUME 96 fL (82-100); MONOCYTES # (AUTO) 0.5 /CMM (0.1-1.30); MONOCYTES % (AUTO) 12.2 % (2.0-12.0); NEUTROPHILS # (AUTO) 2.5 /CMM (1.8-8.9); NEUTROPHILS % (AUTO) 59.9 % (43.0-81.0); PLATELET COUNT (AUTO) 176 /CMM (150-450); RED BLOOD CELL COUNT(AUTO) 4.41 MIL/uL (4.0-5.2); WHITE BLOOD COUNT (AUTO) 4.2 K/uL (4.3-11.0)
[2019-07-07 11:53] LABS: CREATININE 0.9 mg/dL (0.6-1.3); POTASSIUM 3.6 mmol/L (3.5-5.1)
[2019-07-07] MEDS: LIDOCAINE 5% (PATCH) 1 EA PATCH TP SCH (13:08)
[2019-07-07] MEDS: HYDROCODONE/APAP 5/325MG 1 EACH TABLET PO PRN ×2 (13:15→23:37)
--- NOTE | 2019-07-07 18:58 | NUR ---
MS RN CLOSING NOTES PATIENT RESTING COMFORTABLY IN BED. HOB ELEVATED. NO SOB OBSERVED. DENIES ANY C/O PAIN NOR DISCOMFORT AT THIS TIME. LEFT FA # 18 SL INTACT AND PATENT. PATIENT USES BEDSIDE COMMODE JOSH WELL. REQUIRES STANDBY ASSIST DURING AMBULATION. AMBULATED TO THE BATHROOM WITH STEADY GAIT. BED IN LOWEST POSITION, LOCKED. ABLE TO MAKE NEEDS KNOWN. BED SIDE RAILS UPX2. CALL LIGHT WITHIN REACH. IN NO APPARENT DISTRESS.
--- NOTE | 2019-07-07 19:45 | NUR ---
recieved ms. Bundy alert and orientated. family at the bedside. She states she is in no pain just Hot and hard time to breath. Pharmacy called for the ordered inhaler PRN, no answer as yet. MD called to reorder her resp tx that were DC/D She appears comfortable resp even and unlabored lung via auscultation clear but diminished. Patient reassured. call light within reach and reviweed with her bed alarm on.
[2019-07-07] MEDS: SIMVASTATIN 20 MG TABLET PO SCH (21:58)
[2019-07-08] MEDS: HYDROCODONE/APAP 5/325MG 1 EACH TABLET PO PRN ×2 (00:51→09:18)
--- NOTE | 2019-07-08 01:23 | NUR ---
called inspection supervisor regarding inhaler needed faxed the order.
--- NOTE | 2019-07-08 01:47 | NUR ---
[facility] unable to get the Inhaler requisted I text the MD to see if she could reorder resp tx. the patient is not coughing asleep resp even and unlabored
[2019-07-08] MEDS ORDERED: ALBUTEROL SULFATE INH 18 GM HFA.AER.AD IH PRN (02:00)
[2019-07-08] MEDS: ALBUTEROL FS 2.5 MG/3 ML VIAL.NEB NEB SCH ×6 (02:56→22:52)
--- NOTE | 2019-07-08 06:28 | NUR ---
RESP TREATMENT RESUMED AND WERE EFFECTIVE FOR COUGH RELIEF. SHE SLEPT THRU MOST OF THE NIGHT. SHE IS CONTINENT USING THE BEDSIDE COMMODE.
[2019-07-08] MEDS ORDERED: ALBUTEROL FS 2.5 MG/0.5 ML VIAL.NEB NEB PRN ×2 (07:00→07:35)
--- NOTE | 2019-07-08 07:34 | NUR ---
MS/RN Opening note Patient received resting in bed, A/O x4, showing no signs of acute distress or SOB at this time. Temp is 100.5 F, will give tylenol and cooling measures. IV line is clean and patent. Respiratory therapist at the bedside giving breathing tx. Bed is in lowest position, side rails x2 in upright position, safety, fall and aspiration precautions enforced. Will continue with plan of care.
[2019-07-08 08:00] VITALS: BP 148/80
--- NOTE | 2019-07-08 08:00 | NUR ---
MS/RN temp Temp 100.5 F, gave tylenol and cooling measures.
--- NOTE | 2019-07-08 08:10 | NUR ---
MS/RN med informed Dr. Martinez patient is taking Plavix, Xarelto, and Aspirin this AM. Ok to give as per .
[2019-07-08] MEDS: CHOLECALCIFEROL 1,000 UNIT TABLET (VIT D3) PO SCH (08:11)
[2019-07-08] MEDS: FOLIC ACID 1 MG TABLET PO SCH (08:12)
[2019-07-08] MEDS: ASPIRIN 81 MG TAB.CHEW PO SCH (08:12)
[2019-07-08] MEDS: CLOPIDOGREL BISULFATE 75 MG TABLET PO SCH (08:12)
[2019-07-08] MEDS: PANTOPRAZOLE 40 MG TABLET.DR PO SCH (08:12)
[2019-07-08] MEDS: ISOSORBIDE MONONITRATE (30MG) 30 MG TAB.SR.24H PO SCH (08:12)
[2019-07-08] MEDS: RIVAROXABAN 10 MG TABLET PO SCH (08:13)
[2019-07-08] MEDS: METOPROLOL TARTRATE 25 MG TABLET PO SCH (08:14)
[2019-07-08] MEDS: ACETAMINOPHEN 650 MG/20.3 ML UDC PO PRN (08:19)
--- NOTE | 2019-07-08 09:00 | NUR ---
MS/RN temp Temp is 99.3 F, will continue to monitor. Patient showing no signs of distress
[2019-07-08 09:03] LABS: ALANINE AMINOTRANSFERASE 27 U/L (12-78); ALBUMIN 3.6 g/dL (3.4-5.0); ALKALINE PHOSPHATASE 145 U/L (46-116); ASPARTATE AMINOTRANSFERASE 28 U/L (15-37); BILIRUBIN,TOTAL 0.5 mg/dL (0.2-1.0); CALCIUM, SERUM 8.9 mg/dL (8.5-10.1); CARBON DIOXIDE 29 mmol/L (21-32); CHLORIDE 98 mmol/L (98-107); CREATININE 1.2 mg/dL (0.6-1.3); GLUCOSE 111 mg/dL (74-106); MAGNESIUM 1.8 mg/dL (1.8-2.4); PHOSPHORUS 4.3 mg/dL (2.5-4.9); POTASSIUM 3.4 mmol/L (3.5-5.1); SODIUM SERUM 140 mmol/L (136-145); TOTAL PROTEIN, SERUM 7.3 g/dL (6.4-8.2); UREA NITROGEN, BLOOD 22 mg/dL (7-18)
[2019-07-08 09:30] LABS: CHOLESTEROL 121 mg/dL (<200); HDL CHOLESTEROL 50 mg/dL (40-60); LDL 58 mg/dL (0-99); THYROID STIMULATING HORMONE 0.705 uIU/mL (0.358-3.74); TRIGLYCERIDES 74 mg/dL (30-150)
[2019-07-08 09:54] LABS: BASOPHILS % (AUTO) 0.5 % (0.0-2.0); EOSINOPHILS % (AUTO) 1.8 % (0.0-6.0); HEMATOCRIT 45 % (33-45); HEMOGLOBIN 14.7 g/dL (11.5-14.8); LYMPHOCYTES # (AUTO) 0.5 /CMM (0.8-4.8); LYMPHOCYTES % (AUTO) 13.6 % (20.0-44.0); MEAN CORPUSCULAR HGB CONC 33 g/dl (31.0-36.0); MEAN CORPUSCULAR VOLUME 98 fL (82-100); MONOCYTES # (AUTO) 0.4 /CMM (0.1-1.30); MONOCYTES % (AUTO) 10.3 % (2.0-12.0); NEUTROPHILS # (AUTO) 2.7 /CMM (1.8-8.9); NEUTROPHILS % (AUTO) 73.8 % (43.0-81.0); PLATELET COUNT (AUTO) 188 /CMM (150-450); RED BLOOD CELL COUNT(AUTO) 4.62 MIL/uL (4.0-5.2); WHITE BLOOD COUNT (AUTO) 3.7 K/uL (4.3-11.0)
[2019-07-08] MEDS: LIDOCAINE 5% (PATCH) 1 EA PATCH TP SCH (11:53)
--- NOTE | 2019-07-08 16:00 | NUR ---
MS/RN temp Temp 98.2, patient is stable. Will continue to monitor.
[2019-07-08 16:07] VITALS: BP 118/66
[2019-07-08] MEDS ORDERED: GUAIFENESIN/D-METHORPHAN HB 5 ML UDC PO PRN (17:00)
--- NOTE | 2019-07-08 18:47 | NUR ---
MS/RN Closing note Patient is resting in bed, A/O x4, showing no signs of acute distress or SOB, saturating >95% on 1-2L NC. IV line s/l is clean and patent. Skin is intact. Vital signs WNL. Bed is in lowest position, side railsx2 in upright position, call light is within reach and patient is aware of how to call for assistance when needed. Fall and safety precautions enforced. 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
[2019-07-08 20:00] VITALS: BP 131/100
[2019-07-08 20:28] VITALS: BP 131/100
[2019-07-08] MEDS: SIMVASTATIN 20 MG TABLET PO SCH (22:46)
[2019-07-09] MEDS: AZITHROMYCIN 250 MG TABLET PO SCH (00:34)
[2019-07-09] MEDS: ALBUTEROL FS 2.5 MG/3 ML VIAL.NEB NEB SCH ×6 (03:37→22:48)
[2019-07-09 06:44] LABS: BASOPHILS % (AUTO) 0.7 % (0.0-2.0); EOSINOPHILS % (AUTO) 3.3 % (0.0-6.0); HEMATOCRIT 43 % (33-45); LYMPHOCYTES # (AUTO) 1.1 /CMM (0.8-4.8); LYMPHOCYTES % (AUTO) 32.1 % (20.0-44.0); MEAN CORPUSCULAR HGB CONC 33 g/dl (31.0-36.0); MEAN CORPUSCULAR VOLUME 97 fL (82-100); MONOCYTES # (AUTO) 0.6 /CMM (0.1-1.30); MONOCYTES % (AUTO) 15.6 % (2.0-12.0); NEUTROPHILS # (AUTO) 1.7 /CMM (1.8-8.9); NEUTROPHILS % (AUTO) 48.3 % (43.0-81.0); PLATELET COUNT (AUTO) 176 /CMM (150-450); WHITE BLOOD COUNT (AUTO) 3.5 K/uL (4.3-11.0)
[2019-07-09 06:58] LABS: CALCIUM, SERUM 8.7 mg/dL (8.5-10.1); CREATININE 0.9 mg/dL (0.6-1.3); POTASSIUM 3.9 mmol/L (3.5-5.1)
[2019-07-09] MEDS: PANTOPRAZOLE 40 MG TABLET.DR PO SCH (07:30)
[2019-07-09 08:00] VITALS: BP 130/75
[2019-07-09] MEDS: ISOSORBIDE MONONITRATE (30MG) 30 MG TAB.SR.24H PO SCH (09:12)
[2019-07-09] MEDS: CLOPIDOGREL BISULFATE 75 MG TABLET PO SCH (09:12)
[2019-07-09] MEDS: CHOLECALCIFEROL 1,000 UNIT TABLET (VIT D3) PO SCH (09:12)
[2019-07-09] MEDS: FOLIC ACID 1 MG TABLET PO SCH (09:12)
[2019-07-09] MEDS: METOPROLOL TARTRATE 25 MG TABLET PO SCH (09:12)
[2019-07-09] MEDS: ASPIRIN 81 MG TAB.CHEW PO SCH (09:12)
[2019-07-09] MEDS: RIVAROXABAN 10 MG TABLET PO SCH (09:16)
[2019-07-09] MEDS: LIDOCAINE 5% (PATCH) 1 EA PATCH TP SCH (11:30)
[2019-07-09 16:00] VITALS: BP 123/76
--- NOTE | 2019-07-09 19:20 | NUR ---
RN NOTES RECEIVED PATIENT AWAKE, BREATHING EVEN AND UNLABORED SATING 94% - 95%, ON 2 LPM VIA NASAL CANNULA, ALERT ORIENTED X4, IV ACCESS ON HER LEFT FOREARM INTACT AND PATENT, SAFETY MEASURES IN PLACE, ASPIRATION PRECAUTION EMPHASIZED, CALL LIGHT WITHIN EASY REACH, ALL NEEDS ATTENDED, DENIES PAIN AT THIS TIME, WILL MONITOR ACCORDINGLY.
[2019-07-09 20:00] VITALS: BP 113/72
[2019-07-09] MEDS: SIMVASTATIN 20 MG TABLET PO SCH (22:20)
[2019-07-09] MEDS: HYDROCODONE/APAP 5/325MG 1 EACH TABLET PO PRN (22:49)
[2019-07-10] MEDS: AZITHROMYCIN 250 MG TABLET PO SCH (00:58)
[2019-07-10] MEDS: ALBUTEROL FS 2.5 MG/3 ML VIAL.NEB NEB SCH ×6 (03:22→23:30)
--- NOTE | 2019-07-10 04:11 | NUR ---
RN NOTES PATIENT IS CALM, SLEEPING COMFORTABLY. ALL NEEDS ANTICIPATED. WILL MONITOR.
--- NOTE | 2019-07-10 06:51 | NUR ---
RN NOTES ALL NEEDS ATTENDED AND MET, ABLE TO REST AND SLEPT AT INTERVALS, DENIES PAIN BREATHING EVEN AND UNLABORED, DENIES DIFFICULTY OF BREATHING, NO SHORTNESS OF BREATH, ON O2 AT 2LPM VIA NASAL CANNULA,SAFETY MEASURES IN PLACE, ASPIRATION PRECAUTION EMPHASIZED, CALL LIGHT WITHIN EASY REACH, WILL ENDORSE TO AM NURSE FOR CONTINUITY OF CARE.
[2019-07-10 07:40] LABS: BASOPHILS % (AUTO) 0.7 % (0.0-2.0); HEMATOCRIT 43 % (33-45); HEMOGLOBIN 14.1 g/dL (11.5-14.8); LYMPHOCYTES # (AUTO) 1.3 /CMM (0.8-4.8); LYMPHOCYTES % (AUTO) 40.6 % (20.0-44.0); MEAN CORPUSCULAR HGB CONC 33 g/dl (31.0-36.0); MEAN CORPUSCULAR VOLUME 98 fL (82-100); MONOCYTES # (AUTO) 0.5 /CMM (0.1-1.30); MONOCYTES % (AUTO) 14.5 % (2.0-12.0); NEUTROPHILS # (AUTO) 1.1 /CMM (1.8-8.9); NEUTROPHILS % (AUTO) 36.2 % (43.0-81.0); PLATELET COUNT (AUTO) 188 /CMM (150-450); RED BLOOD CELL COUNT(AUTO) 4.41 MIL/uL (4.0-5.2); WHITE BLOOD COUNT (AUTO) 3.1 K/uL (4.3-11.0)
--- NOTE | 2019-07-10 07:42 | NUR ---
MS RN NOTES PATIENT RECEIVED RESTING INSIDE ROOM. AWAKE, ALERT AND ORIENTED. NO ACUTE DISTRESS. DENIES ANY PAIN OR DISCOMFORT. CONTINUE I&O. PATIENT AWARE AND VERBALIZED UNDERSTANDING. WILL CONTINUE TO MONITOR. BED LOCKED AND IN LOW POSITION. BILATERAL UPPER SIDE RAILS UP AND LOCKED. CALL LIGHT WITHIN EASY REACH
[2019-07-10 07:50] LABS: CALCIUM, SERUM 9.4 mg/dL (8.5-10.1); CREATININE 0.9 mg/dL (0.6-1.3); POTASSIUM 4.1 mmol/L (3.5-5.1)
[2019-07-10 08:00] VITALS: BP 131/84
[2019-07-10] MEDS: PANTOPRAZOLE 40 MG TABLET.DR PO SCH (09:01)
[2019-07-10] MEDS: METOPROLOL TARTRATE 25 MG TABLET PO SCH (09:01)
[2019-07-10] MEDS: CHOLECALCIFEROL 1,000 UNIT TABLET (VIT D3) PO SCH (09:01)
[2019-07-10] MEDS: ASPIRIN 81 MG TAB.CHEW PO SCH (09:01)
[2019-07-10] MEDS: FOLIC ACID 1 MG TABLET PO SCH (09:01)
[2019-07-10] MEDS: ISOSORBIDE MONONITRATE (30MG) 30 MG TAB.SR.24H PO SCH (09:02)
[2019-07-10] MEDS: RIVAROXABAN 10 MG TABLET PO SCH (09:03)
[2019-07-10] MEDS: CLOPIDOGREL BISULFATE 75 MG TABLET PO SCH (09:04)
[2019-07-10] MEDS: LIDOCAINE 5% (PATCH) 1 EA PATCH TP SCH (12:20)
[2019-07-10 16:00] VITALS: BP 120/67
[2019-07-10] MEDS ORDERED: BUMETANIDE INJ 4 MG in IV NS 0.9% 24 ML IV ONE (16:00)
--- NOTE | 2019-07-10 18:57 | NUR ---
MS RN NOTES PATIENT RESTING INSIDE ROOM. SLEEPING, AROUSABLE THROUGH VERBAL AND TACTILE STIMULI. NO ACUTE DISTRESS. DENIES ANY PAIN OR DISCOMFORT. PATIENT KEPT CLEAN, DRY AND COMFORTABLE. SAFETY PRECAUTIONS IN PLACE. WILL ENDORSE TO INCOMING SHIFT FOR GALO. BED LOCKED AND IN LOW POSITION. BILATERAL UPPER SIDE RAILS UP AND LOCKED. CALL LIGHT WITHIN EASY REACH
--- NOTE | 2019-07-10 19:10 | NUR ---
RN MS OPENING NOTES RECEIVED PATIENT IN BED AWAKE ALERT AND ORIENTED 4, RESPIRATIONS EVEN AND UNLABORED WITH EQUAL RISE AND FALL OF CHEST , DENIES ANY PAIN AT THIS TIME, IV SITE TO RIGHT AC #20 G INTACT AND PATENT, NO REDNESS, NO INFILTRATION PRESENT, ORIENTED TO STAFF AND CALL LIGHT AND KEPT WITHIN REACH, SAFETY PRECAUTIONS IN PLACE, LOW BED AND LOCKED, ALL NEEDS ATTENDED AT THIS TIME, WILL CONTINUE TO MONITOR AND ATTEND TO NEEDS.
[2019-07-10] MEDS: ACETAMINOPHEN 650 MG/20.3 ML UDC PO PRN (19:57)
--- NOTE | 2019-07-10 19:57 | NUR ---
rn ms notes patient complaint of headache, 12/08 requesting for tylenol. tylenol prn given as ordered, will continue to monitor for effectiveness.
[2019-07-10 20:00] VITALS: BP_SYST 142; BP_DIAS 81; BP_DIAS 83
[2019-07-10] MEDS: SIMVASTATIN 20 MG TABLET PO SCH (21:43)
[2019-07-11] MEDS: AZITHROMYCIN 250 MG TABLET PO SCH ×2 (00:46→23:43)
[2019-07-11] MEDS: ALBUTEROL FS 2.5 MG/3 ML VIAL.NEB NEB SCH ×6 (03:30→23:10)
--- NOTE | 2019-07-11 06:51 | NUR ---
RN MS CLOSING NOTES PATIENT IN BED AWAKE ALERT AND ORIENTED 4, RESPIRATIONS EVEN AND UNLABORED WITH EQUAL RISE AND FALL OF CHEST , DENIES ANY PAIN AT THIS TIME TYLENOL WAS EFFECTIVE, IV SITE TO RIGHT AC #20 G INTACT AND PATENT, NO REDNESS, NO INFILTRATION PRESENT, ALL DUE MEDS GIVEN NO ADVERSE REACTIONS ,ASSISTED TO BATHROOM AND BSC THROUGHOUT SHIFT,CALL LIGHT KEPT WITHIN REACH, SAFETY PRECAUTIONS IN PLACE, LOW BED AND LOCKED, ALL NEEDS ATTENDED AT THIS TIME, WILL CONTINUE TO MONITOR AND ATTEND TO NEEDS. AND ENDORSE TO NEXT SHIFT.
[2019-07-11] MEDS: ACETAMINOPHEN 650 MG/20.3 ML UDC PO PRN (06:57)
--- NOTE | 2019-07-11 06:58 | NUR ---
RN MS NOTES PATIENT COMPLAINT OF HEADACHE, ASKING FOR TYLENOL , PRN TYLENOL GIVEN, WILL CONTINUE TO MONITOR.
[2019-07-11 08:00] VITALS: BP 123/89
--- NOTE | 2019-07-11 08:40 | NUR ---
ms rn received on bed, awake,alert,oriented x4,not in any form of distress, respirations even and unlabored,no sob noted, lungs are diminished,abdomen soft, ng tube connected to low suction, will monitor patient's condition.
[2019-07-11 08:45] LABS: BASOPHILS % (AUTO) 0.8 % (0.0-2.0); EOSINOPHILS % (AUTO) 7.7 % (0.0-6.0); HEMATOCRIT 43 % (33-45); HEMOGLOBIN 14.4 g/dL (11.5-14.8); LYMPHOCYTES # (AUTO) 1.5 /CMM (0.8-4.8); LYMPHOCYTES % (AUTO) 46.9 % (20.0-44.0); MEAN CORPUSCULAR HGB CONC 33 g/dl (31.0-36.0); MEAN CORPUSCULAR VOLUME 97 fL (82-100); MONOCYTES # (AUTO) 0.3 /CMM (0.1-1.30); MONOCYTES % (AUTO) 10.6 % (2.0-12.0); NEUTROPHILS # (AUTO) 1.1 /CMM (1.8-8.9); PLATELET COUNT (AUTO) 200 /CMM (150-450); RED BLOOD CELL COUNT(AUTO) 4.46 MIL/uL (4.0-5.2); WHITE BLOOD COUNT (AUTO) 3.1 K/uL (4.3-11.0)
--- NOTE | 2019-07-11 09:00 | NUR ---
ms rn patient on bed, at bedside, will monitor patient's condition.
[2019-07-11 09:03] LABS: CALCIUM, SERUM 8.9 mg/dL (8.5-10.1); CREATININE 1.1 mg/dL (0.6-1.3); POTASSIUM 3.8 mmol/L (3.5-5.1)
[2019-07-11 09:08] LABS: ALBUMIN 3.2 g/dL (3.4-5.0); BILIRUBIN,TOTAL 0.3 mg/dL (0.2-1.0); MAGNESIUM 1.8 mg/dL (1.8-2.4); PHOSPHORUS 3.4 mg/dL (2.5-4.9); TOTAL PROTEIN, SERUM 7.1 g/dL (6.4-8.2)
--- NOTE | 2019-07-11 09:20 | NUR ---
ms rn was seen by dr. franco w/ orders made and carried out.
[2019-07-11] MEDS: FOLIC ACID 1 MG TABLET PO SCH (09:47)
[2019-07-11] MEDS: CLOPIDOGREL BISULFATE 75 MG TABLET PO SCH (09:47)
[2019-07-11] MEDS: ASPIRIN 81 MG TAB.CHEW PO SCH (09:47)
[2019-07-11] MEDS: CHOLECALCIFEROL 1,000 UNIT TABLET (VIT D3) PO SCH (09:48)
[2019-07-11] MEDS: ISOSORBIDE MONONITRATE (30MG) 30 MG TAB.SR.24H PO SCH (09:49)
[2019-07-11] MEDS: METOPROLOL TARTRATE 25 MG TABLET PO SCH (09:50)
[2019-07-11] MEDS: RIVAROXABAN 10 MG TABLET PO SCH (09:52)
[2019-07-11] MEDS: PANTOPRAZOLE 40 MG TABLET.DR PO SCH (09:58)
[2019-07-11 11:09] LABS: EOSINOPHILS % (AUTO) 6.4 % (0.0-6.0); HEMATOCRIT 46 % (33-45); LYMPHOCYTES # (AUTO) 1.5 /CMM (0.8-4.8); LYMPHOCYTES % (AUTO) 48.8 % (20.0-44.0); MEAN CORPUSCULAR HGB CONC 32 g/dl (31.0-36.0); MEAN CORPUSCULAR VOLUME 98 fL (82-100); MONOCYTES # (AUTO) 0.4 /CMM (0.1-1.30); MONOCYTES % (AUTO) 11.7 % (2.0-12.0); NEUTROPHILS % (AUTO) 32.1 % (43.0-81.0); PLATELET COUNT (AUTO) 205 /CMM (150-450); RED BLOOD CELL COUNT(AUTO) 4.73 MIL/uL (4.0-5.2); WHITE BLOOD COUNT (AUTO) 3.2 K/uL (4.3-11.0)
[2019-07-11 11:20] LABS: MAGNESIUM 1.9 mg/dL (1.8-2.4); PHOSPHORUS 3.7 mg/dL (2.5-4.9); POTASSIUM 3.8 mmol/L (3.5-5.1)
[2019-07-11] MEDS: LIDOCAINE 5% (PATCH) 1 EA PATCH TP SCH (12:58)
--- NOTE | 2019-07-11 15:00 | NUR ---
ms rn on bed, no distress noted,all needs attended.
[2019-07-11 16:00] VITALS: BP 116/77
--- NOTE | 2019-07-11 18:00 | NUR ---
ms rn on bed, all needs attended.
--- NOTE | 2019-07-11 19:14 | NUR ---
MS RN ON BED, NO DISTRESS NOTED.
--- NOTE | 2019-07-11 19:20 | NUR ---
MS RN OPENING NOTES: RECEIVED PT ON ROOM AIR AND IS TOLERATING WELL. NO SOB NOTED. NO S/S OF DISTRESS. PT APPEARS TO BE A/OX3-4. BUT IS ABRIL FARSI SPEAKING ONLY. PT ASLEEP BUT EASILY AROUSABLE. PT HAS IV ON R AC#20G AND IS PATENT AND INTACT. CURRENTLY H/L. BED ALARM ACTIVATED. BED KEPT IN LOW, LOCKED POSITION, AND SIDE RAILS X 2UP. WILL CONTINUE TO MONITOR PT.
[2019-07-11 20:00] VITALS: BP 119/48
--- NOTE | 2019-07-11 20:28 | NUR ---
MS RN NOTES: FRANCA HAZEL, AT BEDSIDE TRANSLATING PLAN OF CARE AND MEDICATIONS TO BE ADMINISTERED TONIGHT SHE IS ONLY FARSI SPEAKING ONLY. PT UNDERSTOOD PLAN OF CARE.
[2019-07-11] MEDS: SIMVASTATIN 20 MG TABLET PO SCH (21:08)
[2019-07-12] MEDS: ALBUTEROL FS 2.5 MG/3 ML VIAL.NEB NEB SCH ×6 (02:56→22:49)
--- NOTE | 2019-07-12 06:45 | NUR ---
MS RN CLOSING NOTES: ALL NEEDS WERE ATTENDED AND ANTICIPATED FOR. PT AWAKE AND IS A/OX3. PT ONLY FARSI SPEAKING. PT SITTING UP IN BED DRINKING HOT TEA. PT HAS IV ON R AC#20G AND IS PATENT AND INTACT. CURRENTLY H/L. BED KEPT IN LOW, LOCKED POSITION, AND SIDE RAILS X 2UP. BED ALARM ACTIVATED. WILL ENDORSE TO AM NURSE FOR GALO. WILL ENDOSE TO AM NURSE FOR GALO.
[2019-07-12 07:06] LABS: BASOPHILS % (AUTO) 0.5 % (0.0-2.0); EOSINOPHILS % (AUTO) 4.8 % (0.0-6.0); HEMATOCRIT 44 % (33-45); HEMOGLOBIN 14.4 g/dL (11.5-14.8); LYMPHOCYTES # (AUTO) 1.5 /CMM (0.8-4.8); LYMPHOCYTES % (AUTO) 44.4 % (20.0-44.0); MEAN CORPUSCULAR HGB CONC 33 g/dl (31.0-36.0); MEAN CORPUSCULAR VOLUME 97 fL (82-100); MONOCYTES # (AUTO) 0.3 /CMM (0.1-1.30); MONOCYTES % (AUTO) 7.7 % (2.0-12.0); NEUTROPHILS # (AUTO) 1.5 /CMM (1.8-8.9); NEUTROPHILS % (AUTO) 42.6 % (43.0-81.0); PLATELET COUNT (AUTO) 199 /CMM (150-450); RED BLOOD CELL COUNT(AUTO) 4.52 MIL/uL (4.0-5.2); WHITE BLOOD COUNT (AUTO) 3.4 K/uL (4.3-11.0)
--- NOTE | 2019-07-12 07:24 | NUR ---
RN OPENING NOTES Patient received on 2l per hour nasal cannula but patient removes it on and off. No sob noted and patient shows no s/s of pain at this time. Patient remains a/o x2. R AC 20 gauge S/L. Bed at the lowest setting, call light within reach, side rails up x2.
[2019-07-12 08:00] VITALS: BP 136/97
[2019-07-12 08:24] LABS: CALCIUM, SERUM 9.2 mg/dL (8.5-10.1); CREATININE 0.9 mg/dL (0.6-1.3); PHOSPHORUS 3.5 mg/dL (2.5-4.9); POTASSIUM 3.8 mmol/L (3.5-5.1)
[2019-07-12] MEDS: FOLIC ACID 1 MG TABLET PO SCH (08:28)
[2019-07-12] MEDS: METOPROLOL TARTRATE 25 MG TABLET PO SCH (08:28)
[2019-07-12] MEDS: PANTOPRAZOLE 40 MG TABLET.DR PO SCH (08:29)
[2019-07-12] MEDS: ASPIRIN 81 MG TAB.CHEW PO SCH (08:29)
[2019-07-12] MEDS: CLOPIDOGREL BISULFATE 75 MG TABLET PO SCH (08:29)
[2019-07-12] MEDS: RIVAROXABAN 10 MG TABLET PO SCH (08:29)
[2019-07-12] MEDS: CHOLECALCIFEROL 1,000 UNIT TABLET (VIT D3) PO SCH (08:30)
[2019-07-12] MEDS: ISOSORBIDE MONONITRATE (30MG) 30 MG TAB.SR.24H PO SCH (08:30)
[2019-07-12] MEDS: FUROSEMIDE 40 MG/4 ML VIAL IV SCH ×3 (08:44→16:04)
[2019-07-12] MEDS: LIDOCAINE 5% (PATCH) 1 EA PATCH TP SCH (12:11)
[2019-07-12 16:00] VITALS: BP 105/54
[2019-07-12] MEDS: methylPREDNISolone SOD SUCC 125 MG/2ML VIAL IV SCH (16:04)
--- NOTE | 2019-07-12 18:19 | NUR ---
RN CLOSING NOTES Patient remains on room air, no sob noted, patient shows no s/s of pain at this time. Patient remains with R ac 20 gauge S/L. Lasix given x3 this shift. Bed at the lowest setting, call light within reach, side rails up x2. Will give report to NOC rn for GALO bedside.
--- NOTE | 2019-07-12 19:30 | NUR ---
MS RN OPENING NOTES PATIENT AWAKE AND RESTING IN BED. ALERT & ORIENTED X 4. NO S/S OF ACUTE RESPIRATORY DISTRESS OR SOB. NO COMPLAINTS OF PAIN AT THIS TIME. PATIENT HAS A NONPRODUCTIVE COUGH. IV ON RIGHT AC, SIZE 20, HEP LOCK, INTACT AND PATENT. PATIENT HAS BRUISES ON BOTH ARMS FROM PREVIOUS BLOOD DRAWS. ABLE TO AMBULATE TO BATHROOM INDEPENDENTLY. BED LOCKED AND IN SEMI RO'S POSITION. CALL LIGHT WITHIN REACH. WILL CONTINUE TO MONITOR.
[2019-07-12 20:00] VITALS: BP 118/62
[2019-07-12 21:00] VITALS: BP 118/62
[2019-07-12] MEDS: SIMVASTATIN 20 MG TABLET PO SCH (21:12)
[2019-07-12] MEDS: AZITHROMYCIN 250 MG TABLET PO SCH (23:31)
--- NOTE | 2019-07-13 02:15 | NUR ---
MS RN NOTES PATIENT AWAKE AND SITTING IN CHAIR NEXT TO BED. NO S/S OF ACUTE RESPIRATORY DISTRESS OR SOB. NO COMPLAINTS OF PAIN AT THIS TIME. CALL LIGHT WITHIN REACH. WILL CONTINUE TO MONITOR.
[2019-07-13] MEDS: HYDROCODONE/APAP 5/325MG 1 EACH TABLET PO PRN (03:15)
--- NOTE | 2019-07-13 03:15 | NUR ---
MS RN NOTES PATIENT AWAKE AND RESTLESS IN BED. STATES PAIN IN HER KNEES BILATERALLY RATED AT 6/10. ADMINISTERED 1 TAB NORCO 5/325 PER PATIENT'S REQUEST. VITAL SIGNS - BP: 123/77 HR: 89 RR: 20. CALL LIGHT WITHIN REACH. WILL CONTINUE TO MONITOR EFFECTIVENESS OF MEDICATION.
[2019-07-13] MEDS: ALBUTEROL FS 2.5 MG/3 ML VIAL.NEB NEB SCH ×4 (04:08→15:30)
--- NOTE | 2019-07-13 06:35 | NUR ---
MS RN CLOSING NOTES PATIENT SLEEPING IN BED, SEMI RO'S POSITION. ON 2L NC. NO S/S OF ACUTE RESPIRATORY DISTRESS. PATIENT AMBULATES INTERMITTENTLY TO RELIEVE KNEE DISCOMFORT. IV ON RIGHT AC, SIZE 20, INTACT & PATENT, SL. BED SET IN LOWEST POSITION & LOCKED, UPPER SIDE RAILS UP. CALL LIGHT WITHIN REACH. WILL ENDORSE TO DAY SHIFT NURSE PLAN OF CARE.
--- NOTE | 2019-07-13 07:22 | NUR ---
RN MS OPENING NOTES Patient received on room air, no sob noted, patient shows no s/s of pain at this time. Remains a/o x4, R ac #20 SL. Bed at the lowest setting, call light within reach, side rails up x2.
[2019-07-13 07:31] LABS: HEMATOCRIT 45 % (33-45); HEMOGLOBIN 14.8 g/dL (11.5-14.8); LYMPHOCYTES # (AUTO) 0.6 /CMM (0.8-4.8); LYMPHOCYTES % (AUTO) 11.6 % (20.0-44.0); MEAN CORPUSCULAR HGB CONC 33 g/dl (31.0-36.0); MEAN CORPUSCULAR VOLUME 97 fL (82-100); MONOCYTES # (AUTO) 0.2 /CMM (0.1-1.30); MONOCYTES % (AUTO) 3.1 % (2.0-12.0); NEUTROPHILS # (AUTO) 4.7 /CMM (1.8-8.9); NEUTROPHILS % (AUTO) 85.3 % (43.0-81.0); PLATELET COUNT (AUTO) 231 /CMM (150-450); RED BLOOD CELL COUNT(AUTO) 4.61 MIL/uL (4.0-5.2); WHITE BLOOD COUNT (AUTO) 5.5 K/uL (4.3-11.0)
[2019-07-13 07:46] LABS: ALBUMIN 3.4 g/dL (3.4-5.0); BILIRUBIN,TOTAL 0.3 mg/dL (0.2-1.0); CALCIUM, SERUM 9.3 mg/dL (8.5-10.1); CREATININE 1.1 mg/dL (0.6-1.3); PHOSPHORUS 3.2 mg/dL (2.5-4.9); POTASSIUM 3.8 mmol/L (3.5-5.1); TOTAL PROTEIN, SERUM 7.4 g/dL (6.4-8.2)
[2019-07-13 08:00] VITALS: BP 135/76
[2019-07-13] MEDS ORDERED: FUROSEMIDE 40 MG TABLET PO SCH (09:00)
[2019-07-13] MEDS: PANTOPRAZOLE 40 MG TABLET.DR PO SCH (09:09)
[2019-07-13] MEDS: CLOPIDOGREL BISULFATE 75 MG TABLET PO SCH (09:09)
[2019-07-13] MEDS: methylPREDNISolone SOD SUCC 125 MG/2ML VIAL IV SCH (09:09)
[2019-07-13] MEDS: CHOLECALCIFEROL 1,000 UNIT TABLET (VIT D3) PO SCH (09:09)
[2019-07-13] MEDS: METOPROLOL TARTRATE 25 MG TABLET PO SCH (09:10)
[2019-07-13] MEDS: RIVAROXABAN 10 MG TABLET PO SCH (09:11)
[2019-07-13] MEDS: FOLIC ACID 1 MG TABLET PO SCH (09:13)
[2019-07-13] MEDS: ASPIRIN 81 MG TAB.CHEW PO SCH (09:13)
[2019-07-13 09:14] VITALS: BP 135/76
[2019-07-13] MEDS: ISOSORBIDE MONONITRATE (30MG) 30 MG TAB.SR.24H PO SCH (09:14)
[2019-07-13] MEDS: LIDOCAINE 5% (PATCH) 1 EA PATCH TP SCH (11:34)
[2019-07-13] MEDS ORDERED: PRED20TA PO (12:20)
[2019-07-13] MEDS ORDERED: AZIT250T PO (12:20)
[2019-07-13] MEDS ORDERED: ATOR20TA PO (12:20)
--- NOTE | 2019-07-13 14:42 | NUR ---
RN NOTES DISCHARGE Patient discharged at this time. No sob noted, patient shows no s/s of pain at this time. Patients IV line removed with minimal bleeding noted. Patient signed all paper work necessary for discharge and has no further questions regarding. Patients daughter states that she has all her items.
== END 2019-07-13 14:45 | disposition home or self-care (01) | DRG 292 ==
LOC: ER 21:02 → TELE 07-07 00:05 → MED 07-07 11:12
PROVIDERS: ADMIT Registered Nurse; ATTEND Nurse Practitioner Acute Care
DX: I11.0 Hypertensive heart disease with heart failure (principal); D68.69 Other thrombophilia; I50.23 Acute on chronic systolic (congestive) heart failure; I25.2 Old myocardial infarction; I25.10 Atherosclerotic heart disease of native coronary artery without angina pectoris; E11.9 Type 2 diabetes mellitus without complications; Z68.39 Body mass index [BMI] 39.0-39.9, adult; E66.01 Morbid (severe) obesity due to excess calories; K21.9 Gastro-esophageal reflux disease without esophagitis; Z86.73 Personal history of transient ischemic attack (TIA), and cerebral infarction without residual deficits; Z95.0 Presence of cardiac pacemaker; G89.29 Other chronic pain; G47.33 Obstructive sleep apnea (adult) (pediatric); Z87.442 Personal history of urinary calculi; J20.9 Acute bronchitis, unspecified; E78.5 Hyperlipidemia, unspecified; I42.9 Cardiomyopathy, unspecified; Z98.84 Bariatric surgery status; Z79.01 Long term (current) use of anticoagulants; I48.91 Unspecified atrial fibrillation
CPT/HCPCS: 36415; 70220-TC; 71045-TC; 80048-TC; 80053-TC; 80061-TC; 80076-TC; 83735-TC; 83880; 84100-TC; 84443-TC; 84484-TC; 85025-TC; 85730-TC; 87081-TC; 93307-TC; 94799-TC; A4216; G0378; J1940; J2930; J3490; J7030; Q9967

== ENCOUNTER 2019-08-10 11:20 | Outpatient (CLI) | payer MEDICARE, MEDICAID ==
[~2019-08-10 11:20] MED LIST changes: +AZIT250T PO; -PIPE3.379 IV; +PRED20TA PO; -VANC750F IV
== END 2019-08-10 23:59 | disposition home or self-care (01) ==
LOC: RAD 11:20
DX: I51.7 Cardiomegaly (principal); I70.0 Atherosclerosis of aorta; J98.11 Atelectasis; Z95.0 Presence of cardiac pacemaker
CPT/HCPCS: 71046